=== PATIENT | male | born 1955 | race Caucasian/White ===

== ENCOUNTER → 2017-08-07 | Outpatient (CLI) | payer BC ==
[~2017-08-07] MED LIST: ALBU1AER9 INH; CLXUNK; PRLSR20 PO; SNG10 PO; UP TO DATE
[2017-08-07 12:47] LABS: BLOOD UREA NITROGEN 15 mg/dl (7-18); BUN/CREATININE RATIO 17.8 (10-20); CALCIUM 9.2 mg/dl (8.5-10.1); CARBON DIOXIDE 27 mmol/L (21-32); CHLORIDE 105 mmol/L (98-107); CREATININE 0.82 mg/dl (0.60-1.40); GLUCOSE 91 mg/dl (70-99); POTASSIUM 4.1 mmol/L (3.5-5.1); SODIUM 140 mmol/L (136-145)
[2017-08-07 12:58] LABS: CHOLESTEROL 241 mg/dl (0-200); CHOLESTEROL/HDL RATIO 4.1; HDL CHOLESTEROL 59 mg/dl; LDL CHOLESTEROL CALCULATED 134 mg/dl; PROSTATE SPECIFIC ANTIGEN 0.172 ng/ml (0.000-4.000); TRIGLYCERIDES 241 mg/dl (0-150); VERY LOW DENSITY LIPOPROT CALC 48 mg/dl
== END | disposition home or self-care (01) ==
LOC: C.LABPVFM 08:45
PROVIDERS: ATTEND Nurse Practitioner Family
DX: E78.5 Hyperlipidemia, unspecified (principal); E55.9 Vitamin D deficiency, unspecified; Z12.5 Encounter for screening for malignant neoplasm of prostate; Z13.220 Encounter for screening for lipoid disorders

== ENCOUNTER 2019-10-29 05:58 | Inpatient (IN) ==
[2019-10-29] MEDS ORDERED: ASPIRIN CHEW 324 MG PO STA ×2 (06:11→06:50)
[2019-10-29 06:22] LABS: Basophils # (auto) 0.03 K/uL (0-0.2); Basophils % (auto) 0.4 %; Eosinophils # (auto) 0.17 K/uL (0-0.5); Eosinophils % (auto) 2.5 %; Hemoglobin 15.3 g/dL (14.0-18.0); Immature Granulocytes # (auto) 0.01 K/uL (0.00-0.02); Immature Granulocytes % (auto) 0.1 %; Lymphocytes % (auto) 14.4 %; Mean Corpuscular Hemoglobin 31.7 pg (25-34); Mean Corpuscular Volume 93.2 fL (80-100); Mean Platelet Volume 8.7 fL (7.4-10.4); Monocytes # (auto) 0.55 K/uL (0.11-0.59); Monocytes % (auto) 7.9 %; Neutrophils # (auto) 5.17 K/uL (1.4-6.5); Neutrophils % (auto) 74.7 %; Platelet Count 201 K/uL (130-400); RDW Coefficient of Variation 13.3 % (11.5-14.5); RDW Standard Deviation 45.9 fL (36.4-46.3); Red Blood Count 4.83 M/uL (4.7-6.1); White Blood Count 6.93 K/uL (4.8-10.8)
--- NOTE | 2019-10-29 06:26 | XRay Report ---
XR chest 1V portable HISTORY: 63 years-old Male Chest Pain acute atypical chest pain COMPARISON: Chest radiograph 10/21/2009 TECHNIQUE: Portable AP view of the chest FINDINGS: Cardiomediastinal and hilar silhouettes are within normal limits. No pneumothorax, pleural effusion, focal airspace consolidation or overt pulmonary edema. Unchanged chronic focus overlies the lateral a nterior aspect of the left fourth rib which may reflect a bone island or calcified granuloma. Minimal left basilar atelectasis. Bones of the chest appear grossly intact. IMPRESSION: No acute process. ACT 112: Negative or not required by law. The above report was generated using voice recognition software. It may contain grammatical, syntax o r spelling errors. Electronically signed by: Emil Simpson M.D. 10/29/2019 6:25 AM
[2019-10-29 06:36] LABS: Partial Thromboplastin Ratio 0.9; Partial Thromboplastin Time 25.4 Seconds (21.0-31.0); Prothrombin Time 10.5 Seconds (9.0-12.0)
[2019-10-29 06:38] LABS: Albumin Level 3.6 gm/dl (3.4-5.0); BUN Creatinine Ratio 17.8 (10-20); Calcium 9.2 mg/dl (8.5-10.1); Creatinine Clr Calc Pharmacy 87.9 ml/min; Est GFR (African American) 100.8; Potassium 3.8 mmol/L (3.5-5.1)
[2019-10-29 06:47] LABS: Albumin Globulin Ratio 1.1 (0.9-2); Bilirubin,Total 0.5 mg/dl (0.2-1); Globulin 3.3 gm/dl (2.5-4.0); Total Protein 6.9 gm/dl (6.4-8.2); Troponin I 0.182 ng/ml (0-0.045)
[2019-10-29] MEDS ORDERED: NITROGLYCERIN 2% OINTMENT 30GM TUBE EXT STA (06:50)
[2019-10-29] MEDS ORDERED: OPTIRAY 320 125ml IV PRN (08:43)
--- NOTE | 2019-10-29 09:04 | CT Scan Report ---
CT angio neck with con CLINICAL HISTORY: 63 years-old Male with Stroke-like symptoms. Acute strokelike symptoms COMPARISON STUDY: CTA of the head of same day TECHNIQUE: Following the IV administration of 119 mL of Optiray 320, CT angiogram of the neck was per formed from the aortic arch to the skull base. Images are reviewed in the axial, sagittal, and adam l planes. 3-D MIPS images are created and assessed. IV contrast was administered without complication . All measurements were calculated based on NASCET criteria. A dose lowering technique was utilized adhering to the principles of ALARA. FINDINGS: The imaged opacified pulmonary arterial tree is unremarkable. Mild mixed plaque of the thoracic aorti c arch. The imaged proximal subclavian arteries are unremarkable. The bilateral common carotid arteri es are patent. Mild mixed plaque of the bilateral carotid bulbs results in less than 50% stenosis bruno aterally. Mild calcified plaque of the cavernous and supraclinoid segments without high-grade stenosi s. Dominant left vertebral artery. The bilateral vertebral arteries are patent. There is mild less th an 50% luminal narrowing involving the proximal V4 segment left vertebral artery. The right vertebral artery is patent. Basilar artery is also patent. No aneurysm, dissection, high-grade stenosis or pro ximal branch occlusion. Lung apices are clear without pneumothorax. Prevertebral soft tissues are unremarkable. Unremarkable thyroid. No adenopathy. Internal jugular veins are unremarkable. Mild mucosal thickening of the maxil amy sinuses. Multilevel degenerative changes of the cervical spine. Mastoid air cells and middle ear cavities are clear. IMPRESSION: 1. Unremarkable CTA of the neck without aneurysm, dissection, high-grade stenosis or proximal branch occlusion. 2. Mild mixed plaque of the bilateral carotid bulbs results in less than 50% luminal narrowing bilate rally. 3. Mild luminal narrowing of less than 50% involves the proximal V4 segment left vertebral artery. ACT 112: Negative or not required by law. The above report was generated using voice recognition software. It may contain grammatical, syntax o r spelling errors. Electronically signed by: Emil Simpson M.D. 10/29/2019 9:03 AM
--- NOTE | 2019-10-29 09:08 | CT Scan Report ---
CTA ANGIOGRAPHY OF THE HEAD CLINICAL HISTORY: Stroke-like symptoms COMPARISON STUDY: Sinus CT December 18, 2008. TECHNIQUE: Helical axial images of the head were obtained following uneventful intravenous administr ation of 119 cc of Optiray 320. Automated exposure control was utilized for the study. A dose lower ing technique was utilized adhering to the principles of ALARA. CT DOSE: 570.83 mGy.cm FINDINGS: Sensitivity for detection of acute hemorrhage is diminished on this contrast enhanced exam but none is identified. Ventricular system is unremarkable. Basilar cisterns are patent. There are no extra-axial collections. There are no findings to suggest acute dural sinus thrombosis or acute terr itorial infarct. There are postoperative findings within the sinuses with mild mucosal thickening. Th e bilateral M1, M2, A1 and A2 segments are patent. There is no intracranial aneurysm, stenosis, throm bus or abrupt vessel cut off. There is mild plaque within the bilateral cavernous carotids. Posterior circulation is also intact. Bilateral posterior communicating arteries are noted. IMPRESSION: 1. No acute intracranial findings. 2. No significant abnormality on CTA of the head. ACT 112: Negative or not required by law. Electronically signed by: Eloy Mora M.D. 10/29/2019 9:06 AM
[2019-10-29] MEDS ORDERED: NiCARDipine HCL INJ 2.5 MG/ML 10 ML AMP ONE (09:31)
[2019-10-29] MEDS ORDERED: HEPARIN (PORCINE) 1000 UNIT/ML 10 ML (CATH LAB USE ONLY) ONE (09:31)
[2019-10-29] MEDS ORDERED: MIDAZOLAM HCL 1 MG/ML 2ML VIAL ONE ×2 (09:31→12:17)
[2019-10-29] MEDS ORDERED: fentaNYL citrate 100 MCG/2 ML VIAL ONE (09:31)
[2019-10-29] MEDS ORDERED: NITROGLYCERIN/D5W 100MCG/ML 20ML SYR ONE (09:32)
--- NOTE | 2019-10-29 09:42 | Emergency Department Note ---
Entered by Vasquez Rooney acting as a scribe for Tyson Bean MD History of Present Illness General Chief complaint: Chest Pain Stated complaint: CHEST PAIN,NUMBNESS IN ARM,DISORIENTED Time Seen by Provider: 10/29/19 06:29 Source: patient History of Present Illness Onset (ago): hour(s) (3.5) Location: chest Pain Consistency: + other (waxing and waning) Maximum Pain Intensity: 4 Quality: + other (chest pain) Relieved By: + other (standing up) Exacerbated By: + other (sitting down) Associated symptoms: + other (+left arm numbness/weakness) The patient is a 63 year old male, with past medical history of hyperlipidemia and asthma, who presents to the Emergency Room with complaints of waxing and waning chest pain upon waking up this morning approximately 3.5 hours ago. The patient states that his arm has felt weak/numb since waking up as well. The pat ient states that sitting down makes the chest pain worse and standing up will relieve the chest pain shortly. However, the patient notes that if he stays standing up, the chest pain will worsen once again. He denies the pain worsening with a deep breath. The patient emphasizes that the pain has been waxing and waning. The patient notes he has had no prior cardiac history, but he states he had a stress done completed approximately 15 years ago. The patient also states he has been prescribed cholesterol medicine, but he states he does not take it. The patient reports he smoked for about 30 years, but the patient states he stopped smoking 9 years ago. The patient notes he is on asthma medicine. He denies any recent trips or doing any heavy lifting recently. Home Medications Home Medications Medication Instructions Recorded Confirmed Type atorvastatin 10 mg tablet 10 mg PO DAILY #90 tab 05/20/19 10/29/19 Rx sertraline 50 mg tablet 50 mg PO DAILY #90 tab 09/17/19 10/29/19 Rx fluticasone furoate 200 See Rx Instructions .ROUTE 10/28/19 10/29/19 Rx mcg-vilanterol 25 mcg/dose .COMPLEX #60 disk inhalation powder Allergies Allergy/AdvReac Type Severity Reaction Status Date / Time No Known Allergies Allergy Unknown . Verified 10/29/19 06:29 Past Med/Surg History Medical History Asthma Hyperlipidemia Family History Other No significant family history Social History Preferred Language: Fijian Feels Safe at Home: Yes Smoking Status: Never smoker Review of Systems See HPI for pertinent positives & negatives. and A total of 10 systems reviewed and were otherwise negative Physical Exam Vital Signs Vital Signs - 24 hr 10/29/19 06:00 10/29/19 06:06 10/29/19 06:10 Temperature 36.5 C Temperature Source Oral Pulse Rate 73 76 Pulse Rate [Apical] Pulse Rate from SpO2 Sensor 75 Pulse Rhythm Regular Pulse Rhythm [Apical] Pulse Strength Normal Respiratory Rate 20 17 Respiratory Effort / Characteristics Non-Labored Spontaneous Respiratory Depth Normal Respiratory Pattern Regular Blood Pressure 173/84 H 158/86 H Blood Pressure [Right Arm] Blood Pressure Mean 113 105 Blood Pressure Mean [Right Arm] Blood Pressure Position Sitting Blood Pressure Position [Right Arm] Pulse Oximetry 98 98 Oxygen Delivery Method Room Air Room Air Room Air Sepsis Recent Fever Within 48 Hours No Sepsis Action Taken by Nursing No Action Required 10/29/19 06:11 10/29/19 06:30 10/29/19 07:00 Temperature Temperature Source Pulse Rate 67 62 60 Pulse Rate [Apical] Pulse Rate from SpO2 Sensor 62 60 Pulse Rhythm Pulse Rhythm [Apical] Pulse Strength Respiratory Rate 20 21 21 Respiratory Effort / Characteristics Respiratory Depth Respiratory Pattern Blood Pressure 137/82 139/76 108/75 Blood Pressure [Right Arm] Blood Pressure Mean 93 94 80 Blood Pressure Mean [Right Arm] Blood Pressure Position Blood Pressure Position [Right Arm] Pulse Oximetry 95 95 Oxygen Delivery Method Room Air Sepsis Recent Fever Within 48 Hours Sepsis Action Taken by Nursing 10/29/19 07:30 10/29/19 08:00 10/29/19 08:30 Temperature Temperature Source Pulse Rate 63 62 Pulse Rate [Apical] 62 Pulse Rate from SpO2 Sensor 64 Pulse Rhythm Pulse Rhythm [Apical] Regular Pulse Strength Respiratory Rate 19 21 18 Respiratory Effort / Characteristics Non-Labored Respiratory Depth Normal Respiratory Pattern Blood Pressure 143/86 H 129/71 Blood Pressure [Right Arm] 139/76 Blood Pressure Mean 95 79 Blood Pressure Mean [Right Arm] 97 Blood Pressure Position Blood Pressure Position [Right Arm] Sitting Pulse Oximetry 94 96 Oxygen Delivery Method Room Air Sepsis Recent Fever Within 48 Hours Sepsis Action Taken by Nursing 10/29/19 08:57 10/29/19 09:00 10/29/19 09:30 Temperature Temperature Source Pulse Rate 62 55 L Pulse Rate [Apical] 66 Pulse Rate from SpO2 Sensor 64 54 L Pulse Rhythm Pulse Rhythm [Apical] Regular Pulse Strength Respiratory Rate 25 H 17 20 Respiratory Effort / Characteristics Non-Labored Respiratory Depth Normal Respiratory Pattern Regular Blood Pressure 132/64 144/75 H Blood Pressure [Right Arm] 132/64 Blood Pressure Mean 76 97 Blood Pressure Mean [Right Arm] 86 Blood Pressure Position Blood Pressure Position [Right Arm] Sitting Pulse Oximetry 98 96 96 Oxygen Delivery Method Sepsis Recent Fever Within 48 Hours Sepsis Action Taken by Nursing GENERAL: Awake, alert, well-appearing, in no acute distress HENT: Normocephalic, atraumatic. Oropharynx unremarkable. EYES: Normal conjunctiva. Sclera non-icteric. NECK: Supple. No nuchal rigidity. FROM. No JVD. RESPIRATORY: Clear to auscultation. CARDIAC: Regular rate, normal rhythm. Extremities warm and well perfused. Pulses equal. ABDOMEN: Soft, non-distended. No tenderness to palpation. No rebound or guarding. No masses. RECTAL: Deferred. MUSCULOSKELETAL: Chest examination reveals that chest pain is reproducible upon physical exam. The back is symmetrical on inspection without obvious abnormality. There is no CVA tenderness to palpation. No joint edema. LOWER EXTREMITIES: Calves are equal size bilaterally and non-tender. No edema. No discoloration. NEURO: Normal sensorium. No sensory or motor deficits noted. SKIN: No rash or jaundice noted. Course Course 0632: Past medical records reviewed. The patient was evaluated in room B2. A complete history and physical exam was performed. 0652: I updated the patient on his lab findings. 0716: I reviewed the patient's case with Dr. Scott [facility]. Dr. Quezada will evaluate the patient for further management. Consultations Consultation #1: I reviewed the patient's case with Dr. Scott [facility]. Dr. Quezada will evaluate the patient for further management. Time: 07:16 Administered Medications Ioversol (Optiray 320 125ml) 119 ml IV ONCE PRN PRN Reason: Interaction Checking Stop: 11/02/19 08:42 Last Admin: 10/29/19 08:44 Dose: 119 ml Documented by: [id number] Discontinued Medications Aspirin (Aspirin) 324 mg PO NOW STA Stop: 10/29/19 06:12 Last Admin: 10/29/19 06:16 Dose: 324 mg Documented by: [id number] Aspirin (Aspirin) 324 mg PO NOW STA Stop: 10/29/19 06:51 Last Admin: 10/29/19 06:51 Dose: Not Given Documented by: [id number] Nitroglycerin (Nitro-Bid 2%) 1 inch EXT NOW STA Stop: 10/29/19 06:51 Last Admin: 10/29/19 06:54 Dose: 1 inch Documented by: [id number] Medical Decision Making Differential Diagnosis Differential diagnosis: Etiologies such as cardiac ischemia, aortic dissection, pulmonary embolism, pneumonia, pneumothorax, musculoskeletal, infections, pericarditis, myocarditis, esophageal rupture, gastrointestinal, as well as others were entertained. Medical Records Attestation: I reviewed the patient's medical records. Home Medications Current Medication List: was personally reviewed by me Laboratory Data Attestation: I reviewed the patient's lab results. Result diagrams: 10/29/19 06:15 10/29/19 06:15 Lab Results 10/29/19 10/29/19 10/29/19 Range/Units 06:15 06:15 06:15 WBC 6.93 (4.8-10.8) K/uL RBC 4.83 (4.7-6.1) M/uL Hgb 15.3 (14.0-18.0) g/dL Hct 45.0 (42-52) % MCV 93.2 (80-100) fL MCH 31.7 (25-34) pg MCHC 34.0 (32-36) g/dL RDW Std Deviation 45.9 (36.4-46.3) fL RDW Coeff of Jayson 13.3 (11.5-14.5) % Plt Count 201 (130-400) K/uL MPV 8.7 (7.4-10.4) fL Immature Gran % (Auto) 0.1 % Neut % (Auto) 74.7 % Lymph % (Auto) 14.4 % [place] % (Auto) 7.9 % Eos % (Auto) 2.5 % Baso % (Auto) 0.4 % Immature Gran # (Auto) 0.01 (0.00-0.02) K/uL Neut # (Auto) 5.17 (1.4-6.5) K/uL Lymph # (Auto) 1.00 L (1.2-3.4) K/uL [place] # (Auto) 0.55 (0.11-0.59) K/uL Eos # (Auto) 0.17 (0-0.5) K/uL Baso # (Auto) 0.03 (0-0.2) K/uL PT 10.5 (9.0-12.0) Seconds INR 1.0 (0.9-1.1) APTT 25.4 (21.0-31.0) Seconds PTT Ratio 0.9 Sodium 140 (136-145) mmol/L Potassium 3.8 (3.5-5.1) mmol/L Chloride 107 (98-107) mmol/L Carbon Dioxide 28 (21-32) mmol/L Anion Gap 5.0 (3-11) BUN 16 (7-18) mg/dl Creatinine 0.92 (0.6-1.4) mg/dl Est Cr Clr Drug Dosing 87.9 ml/min Est GFR ( Amer) 100.8 Est GFR (Non-Af Amer) 87.0 BUN/Creatinine Ratio 17.8 (10-20) Glucose 112 H (70-99) mg/dl Calcium 9.2 (8.5-10.1) mg/dl Total Bilirubin 0.5 (0.2-1) mg/dl AST 22 (15-37) U/L ALT 32 (12-78) U/L Alkaline Phosphatase 96 (45-117) U/L Total Creatine Kinase (39-308) U/L CK-MB (CK-2) (0.5-3.6) ng/ml CK/CKMB % Calc (0-3.0) Troponin I 0.182 H* (0-0.045) ng/ml Total Protein 6.9 (6.4-8.2) gm/dl Albumin 3.6 (3.4-5.0) gm/dl Globulin 3.3 (2.5-4.0) gm/dl Albumin/Globulin Ratio 1.1 (0.9-2) 10/29/19 Range/Units 06:15 WBC (4.8-10.8) K/uL RBC (4.7-6.1) M/uL Hgb (14.0-18.0) g/dL Hct (42-52) % MCV (80-100) fL MCH (25-34) pg MCHC (32-36) g/dL RDW Std Deviation (36.4-46.3) fL RDW Coeff of Jayson (11.5-14.5) % Plt Count (130-400) K/uL MPV (7.4-10.4) fL Immature Gran % (Auto) % Neut % (Auto) % Lymph % (Auto) % [place] % (Auto) % Eos % (Auto) % Baso % (Auto) % Immature Gran # (Auto) (0.00-0.02) K/uL Neut # (Auto) (1.4-6.5) K/uL Lymph # (Auto) (1.2-3.4) K/uL [place] # (Auto) (0.11-0.59) K/uL Eos # (Auto) (0-0.5) K/uL Baso # (Auto) (0-0.2) K/uL PT (9.0-12.0) Seconds INR (0.9-1.1) APTT (21.0-31.0) Seconds PTT Ratio Sodium (136-145) mmol/L Potassium (3.5-5.1) mmol/L Chloride (98-107) mmol/L Carbon Dioxide (21-32) mmol/L Anion Gap (3-11) BUN (7-18) mg/dl Creatinine (0.6-1.4) mg/dl Est Cr Clr Drug Dosing ml/min Est GFR ( Amer) Est GFR (Non-Af Amer) BUN/Creatinine Ratio (10-20) Glucose (70-99) mg/dl Calcium (8.5-10.1) mg/dl Total Bilirubin (0.2-1) mg/dl AST (15-37) U/L ALT (12-78) U/L Alkaline Phosphatase (45-117) U/L Total Creatine Kinase 169 (39-308) U/L CK-MB (CK-2) 4.0 H (0.5-3.6) ng/ml CK/CKMB % Calc 2.4 (0-3.0) Troponin I (0-0.045) ng/ml Total Protein (6.4-8.2) gm/dl Albumin (3.4-5.0) gm/dl Globulin (2.5-4.0) gm/dl Albumin/Globulin Ratio (0.9-2) Imaging Data Radiologist's Impression: Radiology results as stated below per my review and the radiologist's interpretation: XR chest 1V portable HISTORY: 63 years-old Male Chest Pain acute atypical chest pain COMPARISON: Chest radiograph 10/21/2009 TECHNIQUE: Portable AP view of the chest FINDINGS: Cardiomediastinal and hilar silhouettes are within normal limits. No pneumoth orax, pleural effusion, focal airspace consolidation or overt pulmonary edema. Unchanged chronic focus overlies the lateral anterior aspect of the left fourth rib which may reflect a bone island or calcified granuloma. Minimal left basilar atelectasis. Bones of the chest appear grossly intact. IMPRESSION: No acute process. ACT 112: Negative or not required by law. The above report was generated using voice recognition software. It may contain grammatical, syntax or spelling errors. Electronically signed by: Emil Simpson M.D. 10/29/2019 6:25 AM ECG Data Attestation: I personally reviewed and interpreted this ECG as follows: Indication: + chest pain Rate (beats per minute): 69 Rhythm: + normal sinus ECG Intervals/blocks: + Normal QT-c (383) ECG [place]: + Normal ECG ST segments: no ST depression and no ST elevation Blood Pressure Blood Pressure Findings: Elevated blood pressure Blood Pressure Disposition: further management by hospitalist MDM Narrative This is a 63-year-old male who presents emergency department complaining of chest pain. Patient does have an elevation in his troponin level. The chest pain was improved by nitro. Based on all this I did discuss the case with the hospitalist service who did agree to admit the patient. Patient and family were in agreement with the treatment plan. Impression & Plan Chest pain, Elevated troponin Discharge Plan Visit Data Chief Complaint: Chest Pain Stated Complaint: CHEST PAIN,NUMBNESS IN ARM,DISORIENTED ED Provider: Tyson Bean Discharge Problem: Chest pain, Elevated troponin Patient Disposition: Being Evaluated by Hospitalist Forms Stand Alone Forms: Call Back Authorization, My [facility] [employer] Prescriptions Prescriptions: No Action atorvastatin 10 mg tablet 10 mg PO DAILY Qty: 90 RF: 1 sertraline 50 mg tablet 50 mg PO DAILY Qty: 90 RF: 1 fluticasone furoate-vilanterol [Breo Ellipta] 200-25 mcg/dose blister with device See Rx Instructions .ROUTE .COMPLEX Qty: 60 RF: 5 Referrals Referrals: Lesley Obregon CRNP [Primary Care Provider] - Discharge Problem: Chest pain Qualifiers: Chest pain type: unspecified Qualified Code(s): R07.9 - Chest pain, unspecified The scribe's documentation has been prepared under my direction and personally reviewed by me in its entirety. I confirm that the note above accurately reflects all work, treatment, procedures, and medical decision making performed by me.
--- NOTE | 2019-10-29 10:34 | Cardiology Consultation ---
Date of Consultation October 29, 2019 Assessment & Plan (1) Acute coronary syndrome: (2) Elevated troponin: (3) Chest pain: (4) Aortic valve disorder: (5) Dyslipidemia: ASSESSMENT/PLAN: 1. Acute coronary syndrome: Presentation concerning for acute coronary syndrome. Currently symptoms much improved. We discussed coronary angiography. Risks and benefits were discussed with him in detail. He was made aware that CT surgery is not available at this facility. A conversation was held with his at the bedside. He was agreeable to undergo coronary angiography. Following this advise, further discussion with Dr. Quezada indicated concern for stroke as he discussed issues with his left upper extremity coordination with Dr. Quezada. Dr. Quezada also discussed with Neurology per his report. Therefore, cardiac catheterization is on hold until MRI of the brain is done as he is stable. This is done in the setting of an unremarkable ECG and normal wall motion on echo. Nitroglycerin paste in place. He has received aspirin. Recommend heparin. High-intensity statin therapy. 2. Elevated troponin/chest pain: Plan as above. Troponin is not yet diagnostic of myocardial infarction but would check serial levels. 3. Aortic valve disorder: Sclerotic aortic valve with focal calcification on the non coronary cusp. If he is found to have embolic stroke on MRI, would consider further evaluation/imaging. No significant stenosis. 4. Dyslipidemia: Recommend high-intensity statin therapy. 5. Disposition: Cardiology will continue to follow. Plan of care discussed with Dr. Qeuzada the primary hospitalist service. I will be away from the hospital tomorrow, please do not hesitate to call the on-call civil celebrant for any questions or concerns. Highly complex medical issues. Thank you for allowing me to participate in the care of your patient. Please call for any other questions or concerns. Sincerely, Mitul Rose M.D. History of Present Illness Reason for Consultation: NSTEMI Requesting Physician: Dr. Quezada Attending Physician: Dr. Quezada History of Present Illness Mr. Pope is a very pleasant 63-year-old gentleman with history significant for dyslipidemia and asthma who presented to the emergency department with chest discomfort. He was awakened at 3:00 a.m. with a substernal and slightly left-sided chest discomfort described as a tightness. He also noted left arm numbness and tingling. When he got up to ambulate to the bathroom, he felt lightheaded but denies syncope. He thought maybe he was hungry so therefore he had 2 cups of coffee and a bowl of cereal, but no improvement in his symptoms. Because his symptoms persisted, he had his drive him to the hospital. He states that the chest pain continues to wax and wane in intensity but has not completely resolved. It is currently 1/10 during our conversation. He also has noted diaphoresis this morning and associated dyspnea with exertion, which is all new for him. While in the ER, he felt palpitations which he describes as a skipped feeling. For the past 2 days he has had headaches, which is not usual for him. He informed the hospitalist service, Dr. Quezada, that he had issues with his left arm coordination and actually dropped something this morning because he felt uncoordinated with his left arm. He also reported a tingling sensation in his left leg. For this reason, he had a CT head which was negative and has MRI of the brain pending. He is noncompliant with Lipitor but did tolerate it well in the past. He chooses not to take it because it is a low-dose. He denies melena, hematochezia, or hematuria. He denies syncope, abdominal pain, nausea, or vomiting. Review of systems: As above. Review of systems otherwise negative/unremarkable. Family history: Brother had CAD diagnosed in his 40s and has had multiple PCI. Mother at [place] at the age of 68. She also had hypertension. Social history: He is a former smoker, quitting in approximately 2009 after 20- 30 pack years. Occasional alcohol. No drugs. He lives at home with his . His present to the bedside. He has a stepdaughter and 1 biological son who lives in [place]. 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 Allergies Allergy/AdvReac Type Severity Reaction Status Date / Time No Known Allergies Allergy Unknown . Verified 10/29/19 06:29 Home Medications Home Medications Medication Instructions Recorded Confirmed Type atorvastatin 10 mg tablet 10 mg PO DAILY #90 tab 05/20/19 10/29/19 Rx sertraline 50 mg tablet 50 mg PO DAILY #90 tab 09/17/19 10/29/19 Rx fluticasone furoate 200 See Rx Instructions .ROUTE 10/28/19 10/29/19 Rx mcg-vilanterol 25 mcg/dose .COMPLEX #60 disk inhalation powder Patient History Medical History Asthma Hyperlipidemia Family History Other No significant family history Social History Preferred Language: Yemeni Feels Safe at Home: Yes Smoking Status: Never smoker Physical Exam Physical Exam: Gen.: No acute distress. Alert and oriented. HEENT: Anicteric sclera. Neck: No JVD. No bruit. Cardiac: PMI was nondisplaced. No ventricular heave. Regular. Normal S1-S2. No murmurs, rubs, or gallops. Pulmonary: Clear to auscultation bilaterally without wheezes, rales, or rhonchi. Abdomen: Soft, nontender, nondistended, with normoactive bowel sounds. No bruits noted. Extremities: 2+ radial pulses bilaterally. 2+ posterior tibialis pulses bilaterally. No edema or cyanosis. No palpable cords. Psychiatric: Affect appears appropriate. Results & Data Vital Signs (Past 12 Hours) Vital Signs Temp Pulse Pulse Resp BP BP Pulse Ox 10/29/19 10:00 57 L 22 142/76 H 97 10/29/19 09:48 55 L 18 130/76 97 10/29/19 09:39 55 L 17 138/93 96 10/29/19 09:30 55 L 20 144/75 H 96 10/29/19 09:00 66 17 132/64 96 10/29/19 08:57 62 25 H 132/64 98 10/29/19 08:30 62 18 129/71 10/29/19 08:00 63 21 143/86 H 96 10/29/19 07:30 62 19 139/76 94 10/29/19 07:00 60 21 108/75 95 10/29/19 06:30 62 21 139/76 95 10/29/19 06:11 67 20 137/82 10/29/19 06:06 76 17 158/86 H 98 10/29/19 06:00 36.5 C 73 20 173/84 H 98 Laboratory Results Laboratory Results - last 24 hr 10/29/19 10/29/19 10/29/19 06:15 06:15 06:15 WBC 6.93 RBC 4.83 Hgb 15.3 Hct 45.0 MCV 93.2 MCH 31.7 MCHC 34.0 RDW Std Deviation 45.9 RDW Coeff of Jayson 13.3 Plt Count 201 MPV 8.7 Immature Gran % (Auto) 0.1 Neut % (Auto) 74.7 Lymph % (Auto) 14.4 [place] % (Auto) 7.9 Eos % (Auto) 2.5 Baso % (Auto) 0.4 Immature Gran # (Auto) 0.01 Neut # (Auto) 5.17 Lymph # (Auto) 1.00 L [place] # (Auto) 0.55 Eos # (Auto) 0.17 Baso # (Auto) 0.03 PT 10.5 INR 1.0 APTT 25.4 PTT Ratio 0.9 Sodium 140 Potassium 3.8 Chloride 107 Carbon Dioxide 28 Anion Gap 5.0 BUN 16 Creatinine 0.92 Est Cr Clr Drug Dosing 87.9 Est GFR ( Amer) 100.8 Est GFR (Non-Af Amer) 87.0 BUN/Creatinine Ratio 17.8 Glucose 112 H Calcium 9.2 Total Bilirubin 0.5 AST 22 ALT 32 Alkaline Phosphatase 96 Total Creatine Kinase CK-MB (CK-2) CK/CKMB % Calc Troponin I 0.182 H* Total Protein 6.9 Albumin 3.6 Globulin 3.3 Albumin/Globulin Ratio 1.1 10/29/19 06:15 WBC RBC Hgb Hct MCV MCH MCHC RDW Std Deviation RDW Coeff of Jayson Plt Count MPV Immature Gran % (Auto) Neut % (Auto) Lymph % (Auto) [place] % (Auto) Eos % (Auto) Baso % (Auto) Immature Gran # (Auto) Neut # (Auto) Lymph # (Auto) [place] # (Auto) Eos # (Auto) Baso # (Auto) PT INR APTT PTT Ratio Sodium Potassium Chloride Carbon Dioxide Anion Gap BUN Creatinine Est Cr Clr Drug Dosing Est GFR ( Amer) Est GFR (Non-Af Amer) BUN/Creatinine Ratio Glucose Calcium Total Bilirubin AST ALT Alkaline Phosphatase Total Creatine Kinase 169 CK-MB (CK-2) 4.0 H CK/CKMB % Calc 2.4 Troponin I Total Protein Albumin Globulin Albumin/Globulin Ratio Diagnostic Findings ECGs personally reviewed: ECG 10/29/2019 at 6:04 a.m.: Sinus rhythm 69 bpm. Normal ECG. ECG 10/29/2019 at 8:08 a.m.: NSR 65 bpm. Limited echo 10/29/2019: Normal LV size, wall motion, systolic function. EF 60-65%. Sclerotic aortic valve and focal calcification noted on the non coronary cusp, which appeared to be nonmobile. Mild MR on limited views. Chest x-ray 10/29/2019 personally reviewed: No infiltrate. No acute finding. Head CTA 10/29/2019: No acute intracranial findings. Neck CTA 10/29/2019: No significant stenosis. No dissection or aneurysm. Medications Administered Current Inpatient Medications Ioversol (Optiray 320 125ml) 119 ml IV ONCE PRN PRN Reason: Interaction Checking Stop: 11/02/19 08:42 Last Admin: 10/29/19 08:44 Dose: 119 ml Documented by: PG Care Time/CCT Total # of Minutes Spent Total Time Spent with Patient: Total time spent is greater than 50% in coordination of care (as documented) at patient's floor/unit and/or counseling patient: (1) Chest pain Chest pain type: unspecified Qualified Code(s): R07.9 - Chest pain, unspecified
--- NOTE | 2019-10-29 11:14 | Magnetic Resonance Report ---
MR brain wo con HISTORY: 63 years-old Male Stroke - Dysarthria; left-sided numbness/clumbsine acute strokelike sympt oms with left-sided numbness COMPARISON: CTA head and neck of same day TECHNIQUE: Multiplanar multisequence MRI of the brain was obtained without the use of IV contrast. FINDINGS: Sand Conditioner Machine localizer images demonstrate no gross extracranial abnormality. There is no restricted diffusio n to suggest acute or subacute infarction. No acute intracranial hemorrhage, midline shift, abnormal extra axial collection, hydrocephalus or intracranial mass identified. The major flow voids at the le umer of the skull base appear patent. Trace mastoid effusions. Mild mucosal thickening of the paranasa l sinuses, probably within the left maxillary sinus. The orbits, skull and soft tissues are within no rmal limits. Midline structures including the corpus callosum, brainstem, optic chiasm, pituitary and pineal glands appear unremarkable the sagittal T1 series. No cerebellar tonsillar herniation. Degene rative changes are noted about the imaged cervical spine. Mild age-related involutional changes. Mini mal patchy T2/FLAIR hyperintensities are nonspecific however statistically favor chronic microvascula r ischemic disease. IMPRESSION: No acute intracranial abnormality, specifically there is no evidence of acute or subacute infarction. ACT 112: Negative or not required by law. The above report was generated using voice recognition software. It may contain grammatical, syntax o r spelling errors. Electronically signed by: Emil Simpson M.D. 10/29/2019 11:12 AM
--- NOTE | 2019-10-29 11:49 | Pre Anesthesia Assessment ---
Date of Service October 29, 2019 Pre Sedation Assessment Vital Signs Temp Pulse Pulse Resp BP BP Pulse Ox 10/29/19 11:37 59 L 14 124/71 97 10/29/19 11:13 62 15 124/71 95 10/29/19 10:00 57 L 22 142/76 H 97 10/29/19 09:48 55 L 18 130/76 97 10/29/19 09:39 55 L 17 138/93 96 10/29/19 09:30 55 L 20 144/75 H 96 10/29/19 09:00 66 17 132/64 96 10/29/19 08:57 62 25 H 132/64 98 10/29/19 08:30 62 18 129/71 10/29/19 08:00 63 21 143/86 H 96 10/29/19 07:30 62 19 139/76 94 10/29/19 07:00 60 21 108/75 95 10/29/19 06:30 62 21 139/76 95 10/29/19 06:11 67 20 137/82 10/29/19 06:06 76 17 158/86 H 98 10/29/19 06:00 36.5 C 73 20 173/84 H 98 Cardiovascular RRR, no murmur, no edema Respiratory normal respiratory effort, lungs clear to auscultation Pre-Sedation Airway Assessment Smoking Status: Never smoker Mallampati Class: III ASA: ASA3 NPO Status Date of Last Intake of Fluids: 10/29/19 Time of Last Intake of Fluids: 03:00 Date of Last Intake of Solid Food: 10/29/19 Time of Last Intake of Solid Foods: 03:00 Procedure Planning Contraindications for Sedation: none Current Medications Reviewed: Yes Notes The planned sedation has been discussed with the patient. Informed Consent was obtained. I have identified the patient, determined the appropriateness of sedation and have assessed the patient immediately prior to the procedure. All medicine(s) and interventions are by my order.
--- NOTE | 2019-10-29 12:55 | Cardiac Catheterization ---
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 Cardiac Status Clinical evaluation leading to the procedure CAD Presenation: Unstable angina Anginal Classification: CCS IV Heart Failure: No Cardiogenic Shock within 24 Hours: No Cardiac Arrest within 24 Hours: No Imaging Studies Past 6 Months: Yes Stress Studies Past 6 Months: No Standard Exercise Test: No Stress Echocardiogram: No Stress Testing w/SPECT MPI: No Cardiac CTA: No Coronary Anatomy Dominant: Left Left Ventricular Angiography EF (%): n/a Diagnostic Physicians Name: Morgan Rose MD Status: Elective Closure Device Percutaneous Entry Location: Radial Closure Device: Radial Band Recommendations: Medical Therapy and/or Counseling Cardiac Cath Procedure Full Procedure Date October 29, 2019 Pre-Procedure Diagnosis Pre-Procedure Diagnosis: Acute Coronary Syndrome AUC Score AUC Score: 7 Post-Procedure Diagnosis Post-Procedure Diagnosis: Moderate CAD and Elevated Intracardiac Pressures Procedure(s) Performed Procedure(s) Performed: Coronary Angiography and Left Heart Cath Floating Labor Gang Supervisor Morgan Rose MD Circular Ripsaw Operator(s) Marleen Zhou Estimated Blood Loss Estimated Blood Loss: < 25 ml Medication(s) Medication(s): Fentanyl, Heparin, Lidocaine 1%, Nicardipine and Versed Summary of Findings Procedures: 1. Coronary geography 2. Left heart catheterization 3. Moderate sedation Coronary angiography: 1. Left main coronary: The LMCA is a large-caliber vessel without significant CAD. 2. Left anterior descending: LAD is a large-caliber vessel that wraps around the apex. Proximal LAD 30%. Mid LAD 10%. Large D1 without significant CAD. 3. Circumflex: The circumflex is large and dominant. Circumflex gives rise to a small caliber OM1 with mid 50 to 70% stenosis. Large PL branch without significant CAD. Large PDA with mid 50% stenosis. NANCIE-3 flow throughout the circumflex system. 4. Right coronary artery: The RCA is small and nondominant. Proximal RCA 20% stenosis. 5. Ramus intermedius: Medium caliber ramus with proximal 20% stenosis. Left heart catheterization: 1. Left ventriculography was not performed. 2. No significant aortic stenosis. Peak to peak gradient across the aortic valve was 0. 3. Normal LVEDP; 10 mmHg. Moderate sedation: 1. Sedation start time: 1215 2. Sedation end time: 1236 Impression: 1. Moderate to severe CAD involving small caliber OM1, too small for intervention. 2. Otherwise, mild or moderate nonobstructive CAD. 3. No aortic stenosis. 4. Normal LVEDP. 5. Dominant circumflex. Plan: 1. Optimize medical therapy 2. Trend troponin. Hemodynamics Rest Ao:: 125/62 Final Ao: 123/64 LV: 116/2/10 Recommendations Recommendations: Medical Therapy and/or Counseling Specimens Specimens: None Radiation Exposure (mGy) 863 mGy. Fluoro time 3 min. Contrast (mls) 50 ml Procedural Complication(s) None Disposition PCU I attest to the content of the Intraoperative Record and any orders documented therein. Any exceptions are noted below. [facility] Card Cath Procedure Codes Cardiac Catheterization Procedure 1: Cardiovascular Cath Procedures: 17564 Coronaries and LHC (+/-LV) Moderate Sedation Procedure 1: Sedation/Anesthesia: 06829 Mod Sedation by the same physician;Init15 Min Child Age 5 & Up Procedure 2: Sedation/Anesthesia: 25054 Mod Sedation by the same physician; Ea [id number] Minutes PG Care Time/CCT Total # of Minutes Spent Total Time Spent with Patient: Total time spent is greater than 50% in coordination of care (as documented) at patient's floor/unit and/or counseling patient:
[2019-10-29] MEDS ORDERED: SODIUM CHLORIDE 0.9% 1000ML 1,000 ML IV SCH (13:00)
[2019-10-29] MEDS ORDERED: ONDANSETRON INJ 2 MG/ML 2 ML VIAL IV PRN (13:17)
[2019-10-29] MEDS ORDERED: NITROGLYCERIN/D5W 100MCG/ML 250 ML IV SCH (13:30)
[2019-10-29] MEDS ORDERED: HEPARIN IV BOLUS 6,000 UNITS in SYRINGE 0 ML IV STA (13:33)
[2019-10-29] MEDS ORDERED: HEPARIN SODIUM/DEXTROSE 25,000 UNITS/500 ML BAG IV SCH (13:45)
[2019-10-29] MEDS: METOPROLOL TARTRATE 25 MG TAB PO SCH ×2 (13:59→21:00)
--- NOTE | 2019-10-29 15:07 | History & Physical Report ---
Date of Service October 29, 2019 Assessment & Plan (1) Acute coronary syndrome: Convincing ACS with normal EKG, but elevated troponin. - Cath on 10/29 showed occlusive disease of a small OM1 -> Medical management - Continue ASA, start high-dose statin, beta-aureliano - Continue heparin gtt x 48 hours - Trend troponins until peak - Switch nitroglycerin gtt (which was never started) to Imdur (2) Stroke-like symptom: Patient's reported an episode of dysarthria the evening before presentation which spontaneously resolved. In the ED, he reported left-sided weakness, numbness/tingling, and clumsiness. Concern for CVA; however, he was well outside of the tPA window as he woke up at 3am with these symptoms. - CTA head/neck on 10/29 showed no proximal occlusions, aneurysm, dissection, or high-grade stenosis. It did show mild narrowing of the V4 segment of the left vertebral artery. - MRI brain on 10/29 showed no CVA. - Unclear cause of symptoms apart from atypical ACS symptoms. - Will monitor with neurochecks (3) Dyslipidemia: Was not taking his statin at home because it was "low dose" and "probably not doing much for [him] anyhow." - Now on high-dose statin (4) Asthma: Does not take his Breo Ellipta on a consistent basis. Did report some shortness of breath in the ED, but no wheezing. - DuoNebs PRN - Breo inhaler if he brings it in. (5) DVT prophylaxis: Heparin gtt for ACS History of Present Illness Primary Care Provider: SADE Jiménez 63yo M w/ hx of HLD and asthma who presents with chest pressure that is concerning for ACS. He reports he was awoken with substernal chest pressure that radiated to the left shoulder and down his left arm at approx. 3am. His reports that he had an episode of slurred speech the evening prior which has resolved. The patient reports he got up and tried to walk to his kitchen. He reports some extra clumsiness with his left foot, like he was having trouble walking. 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 He also noted some tingling in his left arm and leg. He also reports some shortness of breath and dizziness with the chest pressure. He reports his pain is still coming and going in small, 30-second waves that come, then let up, then come back again. At present he denies any dysarthria or dysphagia; however, he still reports some mild weakness in his left arm and leg as well as the continued clumsiness of those limbs. Allergies Allergy/AdvReac Type Severity Reaction Status Date / Time No Known Allergies Allergy Unknown . Verified 10/29/19 06:29 Home Medications Home Medications Medication Instructions Recorded Confirmed Type atorvastatin 10 mg tablet 10 mg PO DAILY #90 tab 05/20/19 10/29/19 Rx sertraline 50 mg tablet 50 mg PO DAILY #90 tab 09/17/19 10/29/19 Rx fluticasone furoate 200 See Rx Instructions .ROUTE 10/28/19 10/29/19 Rx mcg-vilanterol 25 mcg/dose .COMPLEX #60 disk inhalation powder Past Med/Surg History Medical History Asthma Dyslipidemia Family History Mother Myocardial infarction, Onset Age: 67 Social History Preferred Language: Uzbek Feels Safe at Home: Yes Smoking Status: Never smoker Hx Substance Use: No Review of Systems Review of Systems: All systems reviewed & are unremarkable except as noted in HPI & below Physical Exam Constitutional: WD/WN, vitals as above Eyes: EOM intact bilaterally; no conjunctival abnormality ENMT: external ear and nose normal, oropharynx normal Neck: trachea midline, no thyromegaly normal visual inspection Respiratory: normal respiratory effort, lungs clear to auscultation no respiratory distress Cardiovascular: RRR, no murmur, no edema Gastrointestinal (Abdomen): Inspection/Auscultation: abdomen normal to inspection; abdomen not distended Musculoskeletal: no cyanosis or clubbing, extremities motor strength 5/5 Skin: no rashes, warm and dry Neurologic: moves all extremities (Mild impairment of finger-nose testing in left arm and leg) and awake Speech / Cognition: no expressive aphasia Motor/Sensory: no tremor, normal movement, no fasciculations, no pronator drift and no asterixis Coordination: + abnormal [id number] test (Left) and + abnormal tour-im-waau test (Left) Psychiatric: Orientation: alert, oriented to person and cooperative Results & Data Vital Signs (Past 12 Hours) Vital Signs Temp Pulse Pulse Resp BP BP BP 10/29/19 14:34 36.6 C 58 L 18 145/79 H 10/29/19 14:12 36.8 C 59 L 18 123/73 10/29/19 13:42 36.7 C 56 L 20 133/79 10/29/19 13:15 60 18 124/68 10/29/19 12:54 61 18 119/70 10/29/19 11:37 59 L 14 124/71 10/29/19 11:13 62 15 124/71 10/29/19 10:00 57 L 22 142/76 H 10/29/19 09:48 55 L 18 130/76 10/29/19 09:39 55 L 17 138/93 10/29/19 09:30 55 L 20 144/75 H 10/29/19 09:00 66 17 132/64 10/29/19 08:57 62 25 H 132/64 10/29/19 08:30 62 18 129/71 10/29/19 08:00 63 21 143/86 H 10/29/19 07:30 62 19 139/76 10/29/19 07:00 60 21 108/75 10/29/19 06:30 62 21 139/76 10/29/19 06:11 67 20 137/82 10/29/19 06:06 76 17 158/86 H 10/29/19 06:00 36.5 C 73 20 173/84 H Pulse Ox 10/29/19 14:34 98 10/29/19 14:12 98 10/29/19 13:42 97 10/29/19 13:15 10/29/19 12:54 10/29/19 11:37 97 10/29/19 11:13 95 10/29/19 10:00 97 10/29/19 09:48 97 10/29/19 09:39 96 10/29/19 09:30 96 10/29/19 09:00 96 10/29/19 08:57 98 10/29/19 08:30 10/29/19 08:00 96 10/29/19 07:30 94 10/29/19 07:00 95 10/29/19 06:30 95 10/29/19 06:11 10/29/19 06:06 98 10/29/19 06:00 98 Code Status & VTE Plan VTE Prophylaxis Plan VTE Prophylaxis will be ordered: Yes PG Care Time/CCT Total # of Minutes Spent Total Time Spent with Patient: Total time spent is greater than 50% in coordination of care (as documented) at patient's floor/unit and/or counseling patient:
[2019-10-29] MEDS ORDERED: ALBUT/IPRATROP 3MG/0.5MG NEB 3 ML VIAL NEB PRN (15:33)
[2019-10-29] MEDS ORDERED: NITROGLYCERIN 2% OINTMENT 30GM TUBE ONE (15:59)
[2019-10-29] MEDS ORDERED: CLOPIDOGREL BISULFATE 300 MG TAB PO STA (16:31)
[2019-10-29] MEDS: NITROGLYCERIN 2% OINTMENT 30GM TUBE EXT SCH ×2 (16:51→22:04)
[2019-10-29] MEDS: ISOSORBIDE MONO EXTENDED REL 30 MG TABCR PO SCH (16:56)
[2019-10-29] MEDS ORDERED: MoRPHine SULFATE 2 MG/ML CARP IV PRN (17:32)
[2019-10-29 20:41] LABS: Partial Thromboplastin Ratio > 5.1
[2019-10-29 20:43] LABS: Partial Thromboplastin Time > 139.0 Seconds (21.0-31.0)
[2019-10-29] MEDS: ACETAMINOPHEN 325 MG TAB PO PRN (20:49)
[2019-10-29] MEDS: ATORVASTATIN 40 MG TAB PO SCH (20:49)
[2019-10-29 21:45] LABS: Partial Thromboplastin Ratio 3.2
[2019-10-29 21:47] LABS: Partial Thromboplastin Time 87.1 Seconds (21.0-31.0)
[2019-10-29] MEDS ORDERED: COLCHICINE 0.6 MG TAB PO ONE (22:39)
--- NOTE | 2019-10-29 22:47 | Progress Note ---
Date of Service October 29, 2019 Received a page from the patient's nurse that his routine serial troponin came back at 17.6. On brief chart review, patient was admitted earlier today for ACS. Underwent a cardiac cath without further intervention. Placed on medical management including heparin. Spoke with patient at bedside. He says he continues to have some chest discomfort that is unchanged relatively since his admission. Denies any difficulty breathing or other acute symptoms. He does say this discomfort feels better on sitting up, worse when supine, but not necessarily better on leaning forward. He does not recall any recent illnesses, fevers, or cough. Vitals reviewed. Patient has a regular bradycardia and clear lungs on exam. EKG shows sinus bradycardia rate 56, rather unchanged from previous EKG. Plan: - Discussed case with Dr. Drew with updates on the above. He mentioned this may be myopericarditis. He recommended stopping heparin and given a single dose of colchicine now. Also recommended starting colchicine twice daily tomorrow. Those orders were written. Lili Hamlin, PGY3 Overnight call Results & Data Vital Signs (Past 12 Hours) Vital Signs Temp Pulse Pulse Resp BP BP Pulse Ox 10/29/19 19:53 37.0 C 65 18 137/68 96 10/29/19 18:42 37.2 C 59 L 59 L 18 127/71 94 10/29/19 18:00 36.9 C 60 20 128/76 94 10/29/19 17:42 36.7 C 67 18 145/74 H 94 10/29/19 17:20 66 20 145/74 H 93 10/29/19 17:00 66 20 134/63 94 10/29/19 16:50 36.8 C 62 20 130/68 93 10/29/19 16:33 36.7 C 61 18 142/72 H 95 10/29/19 16:12 36.8 C 62 20 128/74 94 10/29/19 16:00 36.9 C 60 18 134/77 95 10/29/19 15:45 36.9 C 56 L 19 142/75 H 95 10/29/19 14:34 36.6 C 58 L 18 145/79 H 98 10/29/19 14:12 36.8 C 59 L 18 123/73 98 10/29/19 13:42 36.7 C 56 L 20 133/79 97 10/29/19 13:15 60 18 124/68 10/29/19 12:54 61 18 119/70 10/29/19 11:37 59 L 14 124/71 97 10/29/19 11:13 62 15 124/71 95
[2019-10-30] MEDS: NITROGLYCERIN 2% OINTMENT 30GM TUBE EXT SCH ×4 (03:47→20:52)
[2019-10-30 05:55] LABS: Hematocrit (blood only) 42.1 % (42-52); Hemoglobin 13.9 g/dL (14.0-18.0); Mean Corpuscular Hemoglobin 31.2 pg (25-34); Mean Corpuscular Volume 94.6 fL (80-100); Mean Platelet Volume 8.6 fL (7.4-10.4); Platelet Count 205 K/uL (130-400); RDW Coefficient of Variation 13.4 % (11.5-14.5); RDW Standard Deviation 46.7 fL (36.4-46.3); Red Blood Count 4.45 M/uL (4.7-6.1); White Blood Count 8.59 K/uL (4.8-10.8)
[2019-10-30 06:20] LABS: BUN Creatinine Ratio 15.3 (10-20); Calcium 8.6 mg/dl (8.5-10.1); Creatinine Clr Calc Pharmacy 91.9 ml/min; Est GFR (African American) 104.5; Est GFR (Non-African American) 90.1; Potassium 4.1 mmol/L (3.5-5.1)
[2019-10-30 06:37] LABS: Thyroid Stimulating Hormone 1.13 uIu/ml (0.300-4.500); Troponin I 14.6 ng/ml (0-0.045)
[2019-10-30 07:12] LABS: Estimated Average Glucose 114 mg/dl; Hemoglobin A1C 5.6 % (4.5-5.6)
[2019-10-30] MEDS: ASPIRIN 81 MG CHEW PO SCH (08:04)
[2019-10-30] MEDS: COLCHICINE 0.6 MG TAB PO SCH ×2 (08:05→19:49)
[2019-10-30] MEDS: ISOSORBIDE MONO EXTENDED REL 30 MG TABCR PO SCH (08:05)
[2019-10-30] MEDS: CLOPIDOGREL BISULFATE 75 MG TAB PO SCH (08:05)
[2019-10-30] MEDS: METOPROLOL TARTRATE 25 MG TAB PO SCH ×2 (08:05→19:49)
[2019-10-30] MEDS: ACETAMINOPHEN 325 MG TAB PO PRN ×2 (08:09→19:52)
--- NOTE | 2019-10-30 10:34 | Cardiology Progress Note ---
Date of Service October 30, 2019 Subjective He feels much better this morning. He denies any further chest discomfort or chest pressure with the addition of colchicine last night. His symptoms last evening more worse lying flat and better sitting up. 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 Although he has been unaware of an illness he does have a cough at night. He did have some wooziness when he got up out of bed he also describes a headache. Has any presyncope syncope. [place] any palpitations or fluttering. He looks and feels better this morning. Results & Data Vital Signs (Past 12 Hours) Vital Signs Temp Pulse Pulse Resp BP BP Pulse Ox 10/30/19 07:06 63 10/30/19 07:05 37.0 C 57 L 18 120/70 94 10/30/19 03:59 36.7 C 60 18 116/62 97 10/30/19 00:01 63 10/29/19 23:04 36.8 C 59 L 18 117/65 95 he is awake alert and oriented x3 and is in no acute distress next. HEENT: 2+ carotid upstrokes no evidence of carotid bruits sclera was anicteric hearing is normal Lungs: Clear to auscultation bilaterally no rales rhonchi or wheezing Heart: Regular rate and rhythm no appreciable murmurs rubs or gallops Abdomen: Soft nontender distended positive bowel sounds Extremities no clubbing cyanosis or edema; brisk right radial pulse and his right hand is warm to touch post catheterization Impressions: #1 --Elevated troponin likely on the basis of myopericarditis 2. Normal biventricular size and function 3. Hyperlipidemia 4. Hypertension 5. Coronary angiography: 1. Left main coronary: The LMCA is a large-caliber vessel without significant CAD. 2. Left anterior descending: LAD is a large-caliber vessel that wraps around the apex. Proximal LAD 30%. Mid LAD 10%. Large D1 without significant CAD. 3. Circumflex: The circumflex is large and dominant. Circumflex gives rise to a small caliber OM1 with mid 50 to 70% stenosis. Large PL branch without significant CAD. Large PDA with mid 50% stenosis. NANCIE-3 flow throughout the circumflex system. 4. Right coronary artery: The RCA is small and nondominant. Proximal RCA 20% stenosis. 5. Ramus intermedius: Medium caliber ramus with proximal 20% stenosis. His troponin has peaked and is now trending down. It is reassuring that his LV function is normal on his echocardiogram. In reviewing his catheterization with Dr. Rose at this point it does not appear that he had plaque rupture as a cause for his troponin elevation. Given the fact that his chest discomfort that was worse lying flat and better sitting up is most consistent with myopericarditis. In addition he is already had near resolution of his symptoms with the addition of colchicine. We discontinued his heparin last night. He will remain on colchicine 0.6 mg twice daily in addition to aspirin. We can determine long-term whether he needs Plavix or not tomorrow. I would stop his Imdur as it is causing a headache. He is to remain on the rest of his complete medical regiment and should stay overnight with plan discharge hopefully tomorrow if he feels well. I would urge him to get up out of bed and walk around.
[2019-10-30] MEDS: ATORVASTATIN 40 MG TAB PO SCH (19:48)
--- NOTE | 2019-10-30 23:13 | Hospitalist Progress Note ---
Date of Service October 30, 2019 Assessment & Plan (1) Acute coronary syndrome: Patient does not have ACS. Hold heparin, stop nitro. (2) Stroke-like symptom: Patient's reported an episode of dysarthria the evening before presentation which spontaneously resolved. In the ED, he reported left-sided weakness, numbness/tingling, and clumsiness. Concern for CVA; however, he was well outside of the tPA window as he woke up at 3am with these symptoms. - CTA head/neck on 10/29 showed no proximal occlusions, aneurysm, dissection, or high-grade stenosis. It did show mild narrowing of the V4 segment of the left vertebral artery. - MRI brain on 10/29 showed no CVA. - Unclear cause of symptoms apart from atypical ACS symptoms. - Will monitor with neurochecks - no signs on 10/30 will monitor. (3) Dyslipidemia: Was not taking his statin at home because it was "low dose" and "probably not doing much for [him] anyhow." - Now on high-dose statin (4) Asthma: Does not take his Breo Ellipta on a consistent basis. Did report some shortness of breath in the ED, but no wheezing. - DuoNebs PRN - Breo inhaler if he brings it in. (5) DVT prophylaxis: heparin drip stopped (6) Myocarditis: Given his pleurtic pain, worse with lying down and elebvated trop. will continue colchicine. will monitor patient for another 24 hours. Subjective Patient reports feeling better in regards to chest pain. Patient has a headache. Chest pain worse with lying down better with sitting up. Review of Systems Review of Systems: All systems reviewed & are unremarkable except as noted in HPI & below Physical Exam Physical Exam: Constitutional: WD/WN, vitals as above Eyes: EOM intact bilaterally; no conjunctival abnormality ENMT: external ear and nose normal, oropharynx normal Neck: trachea midline, no thyromegaly normal visual inspection Respiratory: normal respiratory effort, lungs clear to auscultation no respiratory distress Cardiovascular: RRR, no murmur, no edema Gastrointestinal (Abdomen): Inspection/Auscultation: abdomen normal to inspection; abdomen not distended Musculoskeletal: no cyanosis or clubbing, extremities motor strength 5/5 Skin: no rashes, warm and dry Neurologic: moves all extremities Psychiatric: Orientation: alert, oriented to person and cooperative Results & Data Vital Signs (Past 12 Hours) Vital Signs Temp Pulse Pulse Resp BP Pulse Ox 10/30/19 19:19 36.8 C 80 18 114/62 96 10/30/19 15:16 36.6 C 67 74 16 117/63 93 PG Care Time/CCT Total # of Minutes Spent Total Time Spent with Patient: Total time spent is greater than 50% in coordination of care (as documented) at patient's floor/unit and/or counseling patient:
[2019-10-31] MEDS: NITROGLYCERIN 2% OINTMENT 30GM TUBE EXT SCH ×2 (03:15→10:14)
[2019-10-31] MEDS ORDERED: HEPARIN SOD 5,000 UNIT/0.5 ML VIAL SQ SCH (09:00)
[2019-10-31] MEDS: ASPIRIN 81 MG CHEW PO SCH (09:08)
[2019-10-31] MEDS: METOPROLOL TARTRATE 25 MG TAB PO SCH (09:08)
[2019-10-31] MEDS: CLOPIDOGREL BISULFATE 75 MG TAB PO SCH (09:08)
[2019-10-31] MEDS: COLCHICINE 0.6 MG TAB PO SCH (09:08)
[2019-10-31] MEDS: ACETAMINOPHEN 325 MG TAB PO PRN (09:15)
--- NOTE | 2019-10-31 09:20 | Cardiology Progress Note ---
Date of Service October 31, 2019 Assessment & Plan (1) Myopericarditis: (2) CAD (coronary artery disease): (3) Aortic valve disorder: (4) Dyslipidemia: ASSESSMENT/PLAN: 1. Acute myopericarditis: Initially, presentation appeared to be more of acute coronary syndrome but symptoms then appeared to be more consistent with worsening chest pain while supine with improvement sitting upward and coronary angiography did not demonstrate a stenosis likely to be the cause of rest pain. Symptoms resolved with colchicine. Recommend aspirin 325 mg p.o. twice daily for 1 week and then 81 once daily given his CAD. Recommend colchicine 0.6 mg twice daily x3 months. 2. CAD: Most significant lesion appeared to be a very small caliber OM1 with moderate to severe CAD. He did have nonobstructive CAD within the LAD, PDA, ramus, and non dominant RCA. Recommend aspirin 81 mg daily after 1 week as noted above. Recommend high-intensity statin therapy. Continue beta-aureliano. Currently asymptomatic. 3. Aortic valve disorder: Sclerotic aortic valve with focal calcification on the non coronary cusp. Asymptomatic in this regard. 4. Dyslipidemia: Recommend high-intensity statin therapy given CAD in place of home dose, which he was not taking. 5. Disposition: Recommend follow-up in 1-2 weeks in the cardiology office. Plan of care discussed with Dr. Quezada the primary hospitalist service. It was recommended that he ambulated in the hallway prior to discharge. If no other events, can be discharged home from a cardiac perspective today. Subjective He denies chest pain, shortness of breath, syncope, near-syncope, palpitations, edema, or bleeding. Symptoms appeared to resolve with colchicine. When discussing today, after the cardiac catheterization while hospitalized, he noted that chest pain was worse while laying down and improved while sitting upright. He has ambulated in the hallway without chest pain. Review of systems: As above. Physical Exam Physical Exam: Gen.: No acute distress. Alert and oriented. HEENT: Anicteric sclera. Neck: No JVD. Cardiac: Regular. Normal S1-S2. No murmurs, rubs, or gallops. Pulmonary: Clear to auscultation bilaterally without wheezes, rales, or rhonchi. Abdomen: Soft, nontender, nondistended, with normoactive bowel sounds. No bruits noted. Extremities: Right radial cath site is clean, dry, and intact without erythema or discharge. 2+ right radial pulse. No edema or cyanosis. Psychiatric: Affect appears appropriate. Results & Data Vital Signs (Past 12 Hours) Vital Signs Temp Pulse Pulse Pulse Resp BP Pulse Ox 10/31/19 07:47 36.6 C 93 H 18 117/64 94 10/31/19 03:24 37.5 C 65 19 106/54 L 95 10/31/19 00:20 62 10/30/19 23:19 36.9 C 64 18 98/53 L 94 Laboratory Results Laboratory Results - last 48 hr 10/29/19 10/29/19 10/29/19 13:33 19:59 19:59 WBC RBC Hgb Hct MCV MCH MCHC RDW Std Deviation RDW Coeff of Jayson Plt Count MPV APTT > 139.0 H* PTT Ratio > 5.1 Sodium Potassium Chloride Carbon Dioxide Anion Gap BUN Creatinine Est Cr Clr Drug Dosing Est GFR ( Amer) Est GFR (Non-Af Amer) BUN/Creatinine Ratio Glucose Estimat Average Glucose Hemoglobin A1c Calcium Phosphorus Magnesium Troponin I 9.470 H* 17.600 H* Triglycerides Cholesterol LDL Cholesterol, Calc VLDL Cholesterol, Calc HDL Cholesterol Cholesterol/HDL Ratio TSH 10/29/19 10/30/19 10/30/19 21:17 05:39 05:39 WBC 8.59 RBC 4.45 L Hgb 13.9 L Hct 42.1 MCV 94.6 MCH 31.2 MCHC 33.0 RDW Std Deviation 46.7 H RDW Coeff of Jayson 13.4 Plt Count 205 MPV 8.6 APTT 87.1 H* PTT Ratio 3.2 Sodium 140 Potassium 4.1 Chloride 110 H Carbon Dioxide 29 Anion Gap 1.0 L BUN 13 Creatinine 0.88 Est Cr Clr Drug Dosing 91.9 Est GFR ( Amer) 104.5 Est GFR (Non-Af Amer) 90.1 BUN/Creatinine Ratio 15.3 Glucose 97 Estimat Average Glucose Hemoglobin A1c Calcium 8.6 Phosphorus 3.0 Magnesium 2.0 Troponin I 14.600 H* Triglycerides 174 H Cholesterol 157 LDL Cholesterol, Calc 71 VLDL Cholesterol, Calc 35 HDL Cholesterol 51 Cholesterol/HDL Ratio 3 TSH 1.130 10/30/19 05:39 WBC RBC Hgb Hct MCV MCH MCHC RDW Std Deviation RDW Coeff of Jayson Plt Count MPV APTT PTT Ratio Sodium Potassium Chloride Carbon Dioxide Anion Gap BUN Creatinine Est Cr Clr Drug Dosing Est GFR ( Amer) Est GFR (Non-Af Amer) BUN/Creatinine Ratio Glucose Estimat Average Glucose 114 Hemoglobin A1c 5.6 Calcium Phosphorus Magnesium Troponin I Triglycerides Cholesterol LDL Cholesterol, Calc VLDL Cholesterol, Calc HDL Cholesterol Cholesterol/HDL Ratio TSH Diagnostic Findings Telemetry personally reviewed: Sinus rhythm. ECG personally reviewed: ECG 10/30/2019: Sinus rhythm [address] elevation, consider repolarization, pericarditis, verses injury. Medications Administered Current Inpatient Medications Acetaminophen (Tylenol) 650 mg PO Q4H PRN PRN Reason: pain/fever Stop: 11/28/19 13:16 Last Admin: 10/31/19 09:15 Dose: 650 mg Documented by: Albuterol (Duoneb) 3 ml NEB QIDR PRN PRN Reason: Shortness Of Breath Or Wheezing Stop: 11/28/19 18:59 Aspirin (Aspirin Chew) 81 mg PO DAILY [facility] Stop: 11/29/19 08:59 Last Admin: 10/31/19 09:08 Dose: 81 mg Documented by: Atorvastatin Calcium (Lipitor) 80 mg PO HS [facility] Stop: 11/28/19 20:59 Last Admin: 10/30/19 19:48 Dose: 80 mg Documented by: Clopidogrel Bisulfate (Plavix) 75 mg PO QAM [facility] Stop: 11/29/19 08:59 Last Admin: 10/31/19 09:08 Dose: 75 mg Documented by: Colchicine (Colcrys) 0.6 mg PO BID [facility] Stop: 11/29/19 08:59 Last Admin: 10/31/19 09:08 Dose: 0.6 mg Documented by: Heparin Sodium (Porcine) (Heparin Sodium (Porcine)) 5,000 units SQ Q12 [facility] Stop: 11/30/19 08:59 Last Admin: 10/31/19 09:07 Dose: 5,000 units Documented by: Metoprolol Tartrate (Lopressor) 12.5 mg PO BID [facility] Stop: 11/28/19 13:29 Last Admin: 10/31/19 09:08 Dose: 12.5 mg Documented by: Morphine Sulfate (Morphine Sulfate) 2 mg IV Q4H PRN PRN Reason: Pain Stop: 11/12/19 17:31 Last Admin: 10/29/19 17:50 Dose: 2 mg Documented by: Nitroglycerin (Nitro-Bid 2%) 0.5 inch EXT Q6H LEVI Stop: 11/28/19 15:59 Last Admin: 10/31/19 03:15 Dose: Not Given Documented by: Ondansetron HCl (Zofran) 4 mg IV Q4H PRN PRN Reason: Nausea Stop: 11/28/19 13:16 PG Care Time/CCT Total # of Minutes Spent Total Time Spent with Patient: Total time spent is greater than 50% in coordination of care (as documented) at patient's floor/unit and/or counseling patient:
--- NOTE | 2019-10-31 15:33 | Discharge Summary ---
Date of Service October 31, 2019 Admission HPI Per Admitting Provider 63yo M w/ hx of HLD and asthma who presents with chest pressure that is concerning for ACS. He reports he was awoken with substernal chest pressure that radiated to the left shoulder and down his left arm at approx. 3am. His reports that he had an episode of slurred speech the evening prior which has resolved. The patient reports he got up and tried to walk to his kitchen. He reports some extra clumsiness with his left foot, like he was having trouble walking. 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 He also noted some tingling in his left arm and leg. He also reports some shortness of breath and dizziness with the chest pressure. He reports his pain is still coming and going in small, 30-second waves that come, then let up, then come back again. At present he denies any dysarthria or dysphagia; however, he still reports some mild weakness in his left arm and leg as well as the continued clumsiness of those limbs. Principal Diagnosis Theresa-myocarditis Discharge Exam Constitutional WD/WN, vitals as above Eyes EOM intact bilaterally; no conjunctival abnormality ENMT external ear and nose normal, oropharynx normal Neck trachea midline, no thyromegaly normal visual inspection Respiratory normal respiratory effort, lungs clear to auscultation no respiratory distress Cardiovascular RRR, no murmur, no edema Gastrointestinal (Abdomen) Inspection/Auscultation: abdomen normal to inspection; abdomen not distended Musculoskeletal no cyanosis or clubbing, extremities motor strength 5/5 Skin no rashes, warm and dry Neurologic moves all extremities (Mild impairment of finger-nose testing in left arm and leg) and awake Speech / Cognition: no expressive aphasia Motor/Sensory: no tremor, normal movement, no fasciculations, no pronator drift and no asterixis Coordination: + abnormal [id number]-[id number] test (Left) and + abnormal [id number] test (Left) Psychiatric Orientation: alert, oriented to person and cooperative Discharge Data Allergies Allergy/AdvReac Type Severity Reaction Status Date / Time No Known Allergies Allergy Unknown . Verified 10/29/19 06:29 Consultations 10/29/19 07:21 ED Decision to Admit Stat 10/29/19 13:17 Consult Cardiology Routine Procedures Performed Operation Date: 10/29/19 10:00 Actual Procedures p Cath, Left with Cors and Vent - Morgan Rose MD s Cineradiography w/Routine Exam - Morgan Rose MD Ordered Studies 10/29/19 08:23 CT angio head w con Stat CT angio neck with con Stat 10/29/19 09:25 CL Cath Imgs for PACS use only Stat 10/29/19 09:48 MR brain wo con Stat Hospital Course (1) Myopericarditis: In the end, thought to be a viral myopericarditis from a cold virus from his grandkids. Chest pain improved and resolved by discharge. Troponin peaked at 17, then went down. - ASA 325 mg PO BID x 1 week, then 81 mg daily after. - Colchicine 0.6mg PO BID x 3 months. - Follow up with cardiology (2) Acute coronary syndrome: Convincing ACS with normal EKG, but elevated troponin. - Cath on 10/29 showed occlusive disease of a small OM1 -> Medical management. NO stents. - Continue ASA, started high-dose statin (encouraged to take his medications.) (3) Stroke-like symptom: Patient's reported an episode of dysarthria the evening before presentation which spontaneously resolved. In the ED, he reported left-sided weakness, numbness/tingling, and clumsiness. Concern for CVA; however, he was well outside of the tPA window as he woke up at 3am with these symptoms. - CTA head/neck on 10/29 showed no proximal occlusions, aneurysm, dissection, or high-grade stenosis. It did show mild narrowing of the V4 segment of the left vertebral artery. - MRI brain on 10/29 showed no CVA. - Unclear cause of symptoms apart from atypical ACS symptoms. - Resolved by discharge. (4) Dyslipidemia: Was not taking his statin at home because it was "low dose" and "probably not doing much for [him] anyhow." - Now on high-dose statin (5) Asthma: Does not take his Breo Ellipta on a consistent basis. Did report some shortness of breath in the ED, but no wheezing. - DuoNebs PRN - Breo inhaler if he brings it in. Total Time Total Time Spent Total Time Spent (In Minutes): 45 Total Time Includes: Examination of the Patient and Communication With Other Providers Discharge Plan Discharge Items Patient Disposition: Home - Self-Care Reason For Visit: NSTEMI Discharge Diagnosis: Myocarditis (inflammation of the heart) Activity: Resume your previous activity Non-emergency contact: Primary Care Provider and Card Painter Call non-emergency contact if: you have any medication questions, your pain is not controlled and your pain is worsening Follow-up/Referrals: Lesley Obregon CRNP [Primary Care Provider] - 11/11/19 10:30 am (Please, follow up at [facility] with Lesley STUART on MondayNovember 11 at 10:30 am. *If you need to change this appointment, call the office at [phone].) Alise Rowe PA-C [Physician Eggs Inspector] - 11/07/19 9:30 am (Please, follow up at the [facility] with Alise Rowe PA-C on November 07 at 9:30 am. *If you need to change this appointment, call the office at [phone].) Diet: Heart Healthy Addtl Attending Provider Instructions: Myocarditis medication instructions: 1) Take a full-strength aspirin (325 mg) two times per day for 1 week. 2) On November 06, switch to a baby-strength aspirin (81 mg) one time per day after that. Take this indefinitely. 3) Take the colchicine 0.6 mg two times every day until Dr. Rose tells you to stop. If you have any heart burn with the aspirin, you can take Zantak, Protonix, Nexium, or any other [id number]-[id number] heart burn medication. ACTIVITY RECOMMENDATIONS: Excess manipulation of the wrist should be avoided for the next 24-48 hours. * No lifting over 2 pounds (approximately a 1/2 gallon of milk) with the utilized arm for 24 hours. * No strenuous activity such as bowling or tennis for 3 days. * Keep the site of the procedure covered with a bandage for 24 hours. *You may shower the day after the procedure. Do not take a tub bath or submerge the puncture site in water for the next 3 days. *Do not operate any motorized equipment for 3 days. SPECIAL CARE INSTRUCTIONS: The site may be slightly bruised and sore following your procedure. Should any of the following occur, contact the Dr. who performed your procedure. 1. Redness/inflammation, swelling, chills, or fever, or colored drainage at pro cedure site within 3-7 days after your procedure. 2. Coldness, discoloration, ongoing numbness, severe pain, or swelling. Expect mild tingling of hand and tenderness at the puncture site for up to three days. If this persists beyond three days, or other symptoms develop, notify the Dr. who performed your procedure. BLEEDING: If the procedure site on your wrist begins to bleed, do not panic 1. Place 1 or 2 fingers firmly just slightly above the insertion site to stop the bleeding. You may be able to feel your pulse as you hold pressure. 2. Lift your finger after 5 minutes to see if the bleeding has stopped. 3. Once the bleeding has stopped, gently wipe the wrist area clean with a bandage. * If the bleeding from your wrist does not stop after 10 minutes, or if there is a large amount of bleeding or spurting, call 911 (do not drive yourself to the hospital). SKIN IRRITATION: * You may experience some redness and/or swelling in the area where radiation was administered. If any skin irritation occurs, please contact your family physician. FOLLOW UP VISIT: Keep any scheduled doctor appointments. Pending Studies at Discharge: No Stand-Alone Forms: Call Back Authorization, [facility], Smoking Cessation Medications and DC Order Prescriptions: New atorvastatin 40 mg Tablet 40 mg PO HS Qty: 30 RF: 0 colchicine [Colcrys] 0.6 mg Tablet 0.6 mg PO BID Qty: 60 RF: 1 aspirin 325 mg tablet 325 mg PO BID Qty: 14 RF: 0 Continued sertraline 50 mg tablet 50 mg PO DAILY Qty: 90 RF: 1 fluticasone furoate-vilanterol [Breo Ellipta] 200-25 mcg/dose blister with device See Rx Instructions .ROUTE .COMPLEX Qty: 60 RF: 5 Discontinued atorvastatin 10 mg tablet 10 mg PO DAILY Qty: 90 RF: 1 Discharge Orders: Discharge Order (Routine); Ordered 10/31/19 Ordered By: Amado Quezada Admission Data Admit Date/Time: 10/29/19 13:15 Attending Provider: Amado Quezada Admit Provider: Amado Quezada Primary Care Provider: Lesley Obregon Other Providers: Morgan Rose Other Interventions: Discharge Summary Assessment (RN) Last Done: 10/31/19 10:44 DC Date/Time DO NOT enter until pt leaves facility: 10/31/19 12:11
[2019-10-31] MEDS ORDERED: ASPIRIN 325 MG ECTAB PO SCH (21:00)
== END 2019-10-31 12:11 | disposition home or self-care (01) | DRG 287 ==
LOC: ED 05:58 → CC 11:46 → SUATTDRO 13:15 → 2S 13:15

== ENCOUNTER 2024-02-02 06:22 | Inpatient (IN) ==
--- NOTE | 2024-02-02 07:01 | Emergency Department Note ---
Impression & Plan Hypoxia, SOB (shortness of breath), Wheezing, Pneumonia, Failure of outpatient treatment ED Provider Note NAME: ESTEFANI PABLO AGE: 68 SEX: M : 1955 ARRIVES VIA: Walk-In INFORMANT: [Patient] ED PROVIDER(S): [Derick Finley MD] CHIEF COMPLAINT: Respiratory problems HISTORY OF PRESENT ILLNESS: The patient is a 68-year-old male who feels he has been suffering from some difficulty with his breathing for about 2 or so months. He states that he was here at the ED about a week ago and told he had bronchitis. He was given prednisone, Zithromax, albuterol for his nebulizer as well as Tessalon. He states that despite these meds, he is no better. The patient has not had fever but he does have a loose cough. He feels short of breath especially with exertion. This morning, his O2 saturation was around 80%, this was quite low for him, he presents to the ER for repeat evaluation. PMHx/PSHx/Social Hx: See Below PHYSICAL EXAM: GENERAL: Patient is in no acute distress. HEENT: No acute trauma, normocephalic atraumatic, mucous membranes moist, no nasal congestion. NECK: No stridor, no adenopathy, no meningismus, trachea is midline. LUNGS: Wheezing bilaterally with some very diminished breath sounds bilaterally. No respiratory distress. Breath sounds equal. HEART: Without murmurs gallops or rubs, regular rate and rhythm. ABDOMEN: Soft, nontender, no peritonitis. EXTREMITIES: No cyanosis, full range of motion of all the joints without pain or difficulty. NEUROLOGIC: Oriented x 3, no acute motor or sensory deficits, no focal weakness. SKIN: No jaundice, no diaphoresis. DIFFERENTIAL DIAGNOSIS: Bronchitis or pneumonia, PE, exacerbation of asthma, viral illness, among others. EMERGENCY DEPARTMENT PROCEDURES: MEDICAL DECISION MAKING: There is no leukocytosis or concerning anemia. There is a normal platelet count. No coagulopathy. No renal failure or significant electrolyte abnormality. No concerning liver enzyme elevation. ECG shows a normal sinus rhythm, no ischemia or dysrhythmia. Cardiac enzyme testing x 1 is not consistent with acute cardiac injury. Respiratory bio fire was completely negative. Chest film showed some chronic lung disease, no pneumonia or pneumothorax. No CHF. Chest CT does not show PE, a right middle lobe infection/abscess was felt present. The patient was given IV Zosyn, a DuoNeb, IV Solu-Medrol. The patient presents with persistent dyspnea. He was hypoxic earlier. He has failed outpatient management. He was found to have a pneumonia/abscess on CT imaging. Hospitalization is warranted. I spoke with the patient and case management, the on-call hospitalist was consulted. Prior/Outside records/notes reviewed: ED visit note from 01/19/2024 describing his presentation, the diagnosis and plan moving forward. ECG per my interpretation: Indication was shortness of breath. The ECG shows a normal sinus rhythm with a rate of 66. There is some baseline artifact. No acute ST elevation, no PVCs. The QTc is 396. Continuous Cardiac Monitoring per my interpretation: An order was placed for continuous cardiac monitoring. The monitor shows a rate of 76 with normal sinus rhythm. Imaging/x-ray results per my interpretation: Chest x-ray shows some chronic change, there is no pneumonia, CHF or pneumothorax. Chronic Medical/Social conditions affecting care: History of asthma. Care/Management discussed with: Case management, the on-call hospitalist. Level of care consideration(s): After review of the information above and other included data: --I believe the patient requires escalation of care to admission DISPOSITION: Admission Past Med/Surg History Medical History Dyslipidemia Surgical History History of tooth extraction History of cardiac catheterization Family History Mother Myocardial infarction, Onset Age: 67 Denies family history of Ovarian cancer Prostate cancer Breast cancer Colorectal cancer Social History Smoking Status: Former smoker Second Hand Exposure: No; Do You Dip or Chew Tobacco: No; Tobacco Cessation Education Requested by Patient: No Hx Alcohol Use: Yes Alcohol type: beer Hx Substance Use: No Preferred Language: Turkmen Communication Ability: Effective Hearing Ability: Normal 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 Required: No Beliefs That Will Affect Care: None marital status: Current Living Situation: Spouse current occupational status: employed and retired current occupation: [employer] How many Children do You have: 1 Other Information That Helps Us Care for You: No Feels Safe at Home: Yes Safety Concerns: Feels Safe At This Time Childhood Exposure to Second-Hand Smoke: No Diet: regular caffeine: Yes Dental Care, Regularly: No Physical Activity Frequency: Daily Seatbelt Use: always Sunscreen Use: Yes (sometimes) Assistive Devices: None Allergies Allergies Allergy/AdvReac Type Severity Reaction Status Date / Time No Known Drug Allergies Allergy Verified 12/11/23 08:53 Home Meds Previous Rx's Medication Instructions Recorded atorvastatin 40 mg tablet 40 mg PO HS #90 tabs 10/19/22 albuterol sulfate 90 mcg/actuation 2 puff inhalation QID PRN 12/11/23 aerosol inhaler shortness of breath or wheezing #24 grams montelukast 10 mg tablet 10 mg PO DAILY #30 tabs 12/11/23 albuterol sulfate 2.5 mg/3 mL 2.5 mg (3 mL) inhalation Q6H PRN 01/18/24 (0.083 %) solution for nebulization shortness of breath or wheezing #75 mL benzonatate 100 mg capsule 100 mg PO TID PRN cough #20 caps 01/18/24 Results & Data (ED) Vital Signs Vital Signs - 24 hr 02/02/24 06:26 02/02/24 06:38 02/02/24 07:21 Temperature 36.5 C Temperature Source Temporal Artery Scan Pulse Rate 80 76 Respiratory Rate 20 Blood Pressure 182/93 H Blood Pressure Mean 122 Pulse Oximetry 91 92 Oxygen Delivery Method Room Air Nasal Cannula Oxygen Flow Rate 2 Sepsis Recent Fever Within 48 Hours No Sepsis New/Unexplained Change in Mental Status No Sepsis Action Taken by Nursing No Action Required Oxygen Flow Rate - Titration Pulse Oximetry Post Tiitration 02/02/24 08:33 02/02/24 08:52 Temperature Temperature Source Pulse Rate Respiratory Rate Blood Pressure Blood Pressure Mean Pulse Oximetry 91 87 L Oxygen Delivery Method Nasal Cannula Room Air Oxygen Flow Rate 2 Sepsis Recent Fever Within 48 Hours Sepsis New/Unexplained Change in Mental Status Sepsis Action Taken by Nursing Oxygen Flow Rate - Titration 2 Pulse Oximetry Post Tiitration 91 Home Medications Current Medication List: was personally reviewed by me Laboratory Data Attestation: I reviewed the patient's lab results. 02/02/24 07:08 02/02/24 07:08 Lab Results 03/29/24 03/29/24 03/29/24 Range/Units 07:08 07:20 09:30 WBC 8.39 (4.8-10.8) K/ul RBC 4.62 L (4.70-6.10) M/uL Hgb 14.2 (14.0-18.0) g/dl Hct 42.7 (42.0-52.0) % MCV 92.4 (80.0-100.0) fL MCH 30.7 (25.0-34.0) pg MCHC 33.3 (32.0-36.0) g/dL RDW Std Deviation 46.1 (36.4-46.3) fL RDW Coeff of Jayson 13.5 (11.5-14.5) % Plt Count 203 (130-400) K/uL MPV 8.7 L (9.4-12.4) fL Immature Gran % (Auto) 0.4 % Neut % (Auto) 72.9 % Lymph % (Auto) 9.9 % [place] % (Auto) 7.0 % Eos % (Auto) 9.1 % Baso % (Auto) 0.7 % Neut # (Auto) 6.12 (1.40-6.50) K/uL Lymph # (Auto) 0.83 L (1.20-3.40) K/uL [place] # (Auto) 0.59 (0.11-0.59) K/uL Eos # (Auto) 0.76 H (0.00-0.50) K/uL Baso # (Auto) 0.06 (0.00-0.20) K/uL Immature Gran # (Auto) 0.03 (0.01-0.20) K/uL PT 11.0 (9.0-12.0) Seconds INR 1.0 (0.9-1.1) APTT 29 (21-31) Seconds PTT Ratio 1.0 Sodium 141 (136-145) mmol/L Potassium 4.0 (3.5-5.1) mmol/L Chloride 109 H (98-107) mmol/L Carbon Dioxide 25 (21-32) mmol/L Anion Gap 7 (3-11) BUN 14 (6-23) mg/dl Creatinine 0.74 (0.6-1.4) mg/dl Est Cr Clr Drug Dosing 102.0 ml/min Est GFR ( Amer) 108.3 ml/min Est GFR (Non-Af Amer) 93.5 ml/min BUN/Creatinine Ratio 18.9 (10-20) Glucose 147 H (70-99(Fasting)) mg/dl Calcium 9.2 (8.6-10.3) mg/dl Magnesium 2.0 (1.7-2.4) mg/dl Total Bilirubin 0.7 (0.2-1.0) mg/dl AST 22 (13-39) U/L ALT 27 (7-52) U/L Alkaline Phosphatase 71 (34-104) U/L Troponin I High Sens 4.9 (0-20) pg/ml Total Protein 6.4 (6.0-8.3) gm/dl Albumin 4.1 (3.4-5.0) gm/dl Globulin 2.3 L (2.5-4.0) gm/dl Albumin/Globulin Ratio 1.8 (0.9-2) Nasal Screen MRSA (PCR) Negative (Negative) Adenovirus (PCR) Not Detected (NotDetected) B. pertussis DNA (PCR) Not Detected (NotDetected) B.parapertussis DNA PCR Not Detected (NotDetected) C. pneumoniae DNA (PCR) Not Detected (NotDetected) Coronavirus OC43 (PCR) Not Detected (NotDetected) Coronavirus HKU1 (PCR) Not Detected (NotDetected) Coronavirus 229E (PCR) Not Detected (NotDetected) SARS-CoV-2 (PCR) Not Detected (NotDetected) Coronavirus NL63 (PCR) Not Detected (NotDetected) Human Metapneumovir PCR Not Detected (NotDetected) Influenza Type A (PCR) Not Detected (NotDetected) Influenza Type B (PCR) Not Detected (NotDetected) M. pneumoniae (PCR) Not Detected (NotDetected) Parainfluenza 1 (PCR) Not Detected (NotDetected) Parainfluenza 2 (PCR) Not Detected (NotDetected) Parainfluenza 3 (PCR) Not Detected (NotDetected) Parainfluenza 4 (PCR) Not Detected (NotDetected) RSV (PCR) Not Detected (NotDetected) Entero/Rhino (PCR) Not Detected (NotDetected) Administered Medications Benzonatate (Benzonatate 100 Mg Capsule) 100 mg PO TID PRN PRN Reason: cough Stop: 03/03/24 12:46 Last Admin: 02/02/24 13:50 Dose: 100 mg Documented By: HEATHER Enoxaparin Sodium (Enoxaparin Inj 40 Mg/0.4 Ml Syr) 40 mg SQ Q24H LEVI Stop: 03/03/24 12:59 Last Admin: 02/02/24 13:48 Dose: 40 mg Documented By: HEATHER Doxycycline Hyclate 100 mg/ (Dextrose) 100 mls @ 50 mls/hr IV Q12H LEVI Stop: 02/09/24 12:59 Last Admin: 02/02/24 13:44 Dose: 50 mls/hr Documented By: HEATHER Discontinued Medications Albuterol (Albut/Ipratrop 3mg/0.5mg Neb 3 Ml Vial) 3 ml NEB NOW STA; Protocol Stop: 02/02/24 06:59 Last Admin: 02/02/24 07:23 Dose: 3 ml Documented By: DAO Piperacillin Sod/Tazobactam Sod (Zosyn) 4.5 gm in 120 mls @ 240 mls/hr IV NOW ONE Stop: 02/02/24 09:54 Last Admin: 02/02/24 09:36 Dose: Not Given Documented By: DAO Vancomycin HCl 1,750 mg/ (Sodium Chloride) 535 mls @ 200 mls/hr IV NOW STA Stop: 02/02/24 12:34 Last Infusion: 02/02/24 14:46 Dose: Infused Documented By: Admin: 02/02/24 10:52 Dose: 200 mls/hr Documented By: DAO Ampicillin Sodium/Sulbactam Sodium 3,000 mg/ Sodium Chloride 100 mls @ 100 mls/hr IV ONE STA Stop: 02/02/24 10:53 Last Infusion: 02/02/24 11:15 Dose: Infused Documented By: Admin: 02/02/24 10:18 Dose: 100 mls/hr Documented By: DAO Doxycycline Hyclate 100 mg/ (Dextrose) 100 mls @ 50 mls/hr IV ONE STA Stop: 02/02/24 13:17 Last Admin: 02/02/24 12:52 Dose: Not Given Documented By: HEATHER Ioversol (Optiray 320 125ml) 119 ml IV ONCE ONE Stop: 02/02/24 08:53 Last Admin: 02/02/24 08:53 Dose: 119 ml Documented By: KIN Methylprednisolone (Methylprednisolone 125 Mg/2 Ml Vial) 60 mg IV NOW STA Stop: 02/02/24 06:59 Last Admin: 02/02/24 07:24 Dose: 60 mg Documented By: DAO Imaging Data Radiologist's Impression: Chest X-Ray 02/02/24 06:57 XR chest 1V portable CLINICAL HISTORY: Dyspnea COMPARISON STUDY: Chest CT January 17, 2008. Chest radiograph January 18, 2024. FINDINGS: Patient is mildly rotated. There is no pneumothorax or pleural effusion. Calcified left midlung nodule is unchanged. There is no evidence for pulmonary edema. No consolidation is identified. Density at the right cardiophrenic angle favors epicardial fat pad. IMPRESSION: No acute cardiopulmonary findings. ACT 112: Negative or not required by law. Electronically signed by: Eloy Mora M.D. 02/02/2024 7:21 AM Chest CTA 02/02/24 06:58 CT ANGIOGRAPHY OF THE CHEST, PULMONARY EMBOLUS PROTOCOL CLINICAL HISTORY: Shortness of breath. Cough. Wheezing. Evaluate for pulmonary embolus. COMPARISON STUDY: Chest CT January 17, 2008. Chest radiograph performed earlier today. TECHNIQUE: Following IV administration of mL of Optiray, helical axial images of the chest were obtained utilizing the pulmonary embolus protocol. Maximal intensity projections and sagittal and coronal reformats were viewed on an independent 3D workstation. IV contrast was administered without complication. Automated exposure control was utilized for the study. A dose lowering technique was utilized adhering to the principles of ALARA. CT DOSE: 616.68 mGy.cm FINDINGS: No pulmonary emboli are identified. There is no thoracic aortic dissection. Size the heart is normal. There is no pericardial effusion. Moderate coronary artery calcification is present. Mild aortic valvular calcification is noted. There is no pneumothorax or pleural effusion. Bilateral lower lobe bronchial wall thickening is present. Secretions within the airways are noted. There is ground glass opacity within the right middle lobe. A 4.2 x 1.5 cm subpleural fluid and gas containing focus within the medial right middle lobe is noted on image 79 of 247. Visualized portions of the upper abdomen are unremarkable. IMPRESSION: 1. No pulmonary emboli identified. 2. 4.2 x 1.5 cm subpleural fluid and gas containing focus within the medial right middle lobe. Although nonspecific, an infectious etiology such as cavitary/necrotizing pneumonia is favored. Adjacent groundglass opacity within the right middle lobe also favors an infectious etiology. A follow-up chest CT in 2 months to ensure resolution is recommended to exclude the less likely possibility of an underlying lesion. 3. Bilateral lower lobe bronchial wall thickening with secretions within the airways. ACT 112: Negative or not required by law. Electronically signed by: Eloy Mora M.D. 02/02/2024 9:20 AM Discharge Plan Visit Data Chief Complaint: Respiratory Problems Stated Complaint: BREATHING PROBLEMS ED Provider: Derick Finley Discharge Problem: Hypoxia, SOB (shortness of breath), Wheezing, Pneumonia, Failure of outpatient treatment Patient Disposition: Admitted As Inpatient Condition: Fair Discharge Instructions Interventions: ED Discharge Assessment Last Done: 02/02/24 11:44 Discharge Problem: Pneumonia Qualifiers: Pneumonia type: due to unspecified organism Laterality: right Lung location: m iddle lobe of lung Qualified Code(s): J18.9 - Pneumonia, unspecified organism
[2024-02-02] MEDS: ALBUT/IPRATROP 3MG/0.5MG NEB 3 ML VIAL NEB STA (07:23)
--- NOTE | 2024-02-02 07:23 | XRay Report ---
XR chest 1V portable CLINICAL HISTORY: Dyspnea COMPARISON STUDY: Chest CT January 17, 2008. Chest radiograph January 18, 2024. FINDINGS: Patient is mildly rotated. There is no pneumothorax or pleural effusion. Calcified left mid lung nodule is unchanged. There is no evidence for pulmonary edema. No consolidation is identified. D ensity at the right cardiophrenic angle favors epicardial fat pad. IMPRESSION: No acute cardiopulmonary findings. ACT 112: Negative or not required by law. Electronically signed by: Eloy Mora M.D. 02/02/2024 7:21 AM
[2024-02-02] MEDS: methylPREDNISolone 125 MG/2 ML VIAL IV STA (07:24)
[2024-02-02 07:43] LABS: Basophils # (auto) 0.06 K/uL (0.00-0.20); Basophils % (auto) 0.7 %; Eosinophils # (auto) 0.76 K/uL (0.00-0.50); Eosinophils % (auto) 9.1 %; Hematocrit (blood only) 42.7 % (42.0-52.0); Hemoglobin 14.2 g/dl (14.0-18.0); Immature Granulocytes # (auto) 0.03 K/uL (0.01-0.20); Immature Granulocytes % (auto) 0.4 %; Lymphocytes # (auto) 0.83 K/uL (1.20-3.40); Lymphocytes % (auto) 9.9 %; Mean Corpuscular Hemoglobin 30.7 pg (25.0-34.0); Mean Corpuscular Hgb Conc 33.3 g/dL (32.0-36.0); Mean Corpuscular Volume 92.4 fL (80.0-100.0); Mean Platelet Volume 8.7 fL (9.4-12.4); Monocytes # (auto) 0.59 K/uL (0.11-0.59); Neutrophils # (auto) 6.12 K/uL (1.40-6.50); Neutrophils % (auto) 72.9 %; Platelet Count 203 K/uL (130-400); RDW Coefficient of Variation 13.5 % (11.5-14.5); RDW Standard Deviation 46.1 fL (36.4-46.3); Red Blood Count 4.62 M/uL (4.70-6.10); White Blood Count 8.39 K/ul (4.8-10.8)
[2024-02-02 07:54] LABS: Partial Thromboplastin Time 29 Seconds (21-31)
[2024-02-02 08:08] LABS: Albumin Globulin Ratio 1.8 (0.9-2); Albumin Level 4.1 gm/dl (3.4-5.0); BUN Creatinine Ratio 18.9 (10-20); Bilirubin,Total 0.7 mg/dl (0.2-1.0); Calcium 9.2 mg/dl (8.6-10.3); Est GFR (African American) 108.3 ml/min; Est GFR (Non-African American) 93.5 ml/min; Globulin 2.3 gm/dl (2.5-4.0); Total Protein 6.4 gm/dl (6.0-8.3)
[2024-02-02 08:13] LABS: Troponin I High Sensitivity 4.9 pg/ml (0-20)
[2024-02-02 08:37] LABS: Adenovirus PCR Not Detected (NotDetected); Bordetella parapertussis PCR Not Detected (NotDetected); Bordetella pertussis PCR Not Detected (NotDetected); Chlamydia pneumoniae PCR Not Detected (NotDetected); Coronavirus 229E PCR Not Detected (NotDetected); Coronavirus CoV-2 (COVID19)PCR Not Detected (NotDetected); Coronavirus HKU1 PCR Not Detected (NotDetected); Coronavirus NL63 PCR Not Detected (NotDetected); Coronavirus OC43PCR Not Detected (NotDetected); Human Metapneumovirus PCR Not Detected (NotDetected); Influenza A PCR Not Detected (NotDetected); Influenza B PCR Not Detected (NotDetected); Mycoplasma pneumoniae PCR Not Detected (NotDetected); Parainfluenza Virus 1 PCR Not Detected (NotDetected); Parainfluenza Virus 2 PCR Not Detected (NotDetected); Parainfluenza Virus 3 PCR Not Detected (NotDetected); Parainfluenza Virus 4 PCR Not Detected (NotDetected); Respiratory Syncytial VirusPCR Not Detected (NotDetected); Rhinovirus/Enterovirus PCR Not Detected (NotDetected)
[2024-02-02] MEDS: OPTIRAY 320 125ml IV ONE (08:53)
--- NOTE | 2024-02-02 09:22 | CT Scan Report ---
CT ANGIOGRAPHY OF THE CHEST, PULMONARY EMBOLUS PROTOCOL CLINICAL HISTORY: Shortness of breath. Cough. Wheezing. Evaluate for pulmonary embolus. COMPARISON STUDY: Chest CT January 17, 2008. Chest radiograph performed earlier today. TECHNIQUE: Following IV administration of mL of Optiray, helical axial images of the chest were obtai john utilizing the pulmonary embolus protocol. Maximal intensity projections and sagittal and coronal reformats were viewed on an independent 3D workstation. IV contrast was administered without compli cation. Automated exposure control was utilized for the study. A dose lowering technique was utiliz ed adhering to the principles of ALARA. CT DOSE: 616.68 mGy.cm FINDINGS: No pulmonary emboli are identified. There is no thoracic aortic dissection. Size the heart is normal. There is no pericardial effusion. Moderate coronary artery calcification is present. Mild aortic valvular calcification is noted. There is no pneumothorax or pleural effusion. Bilateral lowe r lobe bronchial wall thickening is present. Secretions within the airways are noted. There is ground glass opacity within the right middle lobe. A 4.2 x 1.5 cm subpleural fluid and gas containing focus within the medial right middle lobe is noted on image 79 of 247. Visualized portions of the upper ab domen are unremarkable. IMPRESSION: 1. No pulmonary emboli identified. 2. 4.2 x 1.5 cm subpleural fluid and gas containing focus within the medial right middle lobe. Althou gh nonspecific, an infectious etiology such as cavitary/necrotizing pneumonia is favored. Adjacent gr oundglass opacity within the right middle lobe also favors an infectious etiology. A follow-up chest CT in 2 months to ensure resolution is recommended to exclude the less likely possibility of an under lying lesion. 3. Bilateral lower lobe bronchial wall thickening with secretions within the airways. ACT 112: Negative or not required by law. Electronically signed by: Eloy Mora M.D. 02/02/2024 9:20 AM
[2024-02-02] MEDS ORDERED: VANCOMYCIN CONSULT ACTIVE PRN (09:30)
[2024-02-02] MEDS: PIPERACILLIN/TAZOBACTAM 4.5 GM/120 ML BAG IV ONE (09:36)
--- NOTE | 2024-02-02 09:51 | History & Physical Report ---
Date of Service February 02, 2024 Assessment & Plan (1) Necrotizing pneumonia: Plan: Necrotizing PNA - 2 weeks of sx. Some transient improvement with steroids followed by worsening. +chills. +hypoxia - CTA no PE, +RML necrotizing PNA. Unasyn/Vancomycin/doxy ordered. Patient will need repeat CT in 6 to 8 weeks and if not improving/resolving will need followup bronchoscopy to r/o malignancy - Sputum culture, blood culture, MRSA nare pending - Pt is not septic on admission -Saturating normally on 2 L oxygen at time bedside assessment. Wean as tolerated (2) Asthma: Plan: Mild, well-controlled Prior to his current illness 2 weeks ago denies nighttime awakenings, wheezing at night or during the day, or limitations due to his asthma. Had been switched from Breo inhaler to Singulair due to cost but this had been working well for him. Many years ago had looked into alternative such as Advair/Dulera but they were expensive at the time and has not needed to look into these recently. Patient treated for potential asthma exacerbation/bronchitis 1 week ago without improvement, suspect symptoms were due to pneumonia as above Patient has end expiratory wheezing on forced expiration most prominent in the right middle lobe on exam Continue Singulair, albuterol as needed, methylprednisolone 40 mg daily Will check with insurance if Symbicort/Advair would be a cost beneficial alternative to him if needed (3) CAD (coronary artery disease): Plan: With history of CAD and mild residual disease, patient denies any chest pressure/anginal symptoms in the preceding few months or prior to admission Continue aspirin 81 mg daily. Patient reports he is intermittently compliant with this, encouraged to continue taking this for prevention. Patient also takes his atorvastatin about one third of the time at home. This is continued on admission Troponin is normal No acute ischemic EKG nsr, no acute ischemic changes Patient with reported BP of 182/93, no headache/vision change and coughing during cycling. Blood pressure at rest 140s, additional antihypertensive treatment not indicated at time of admitting assessment (4) Dyslipidemia: Plan: Atorvastatin as noted Plan DVT prophylaxis: Lovenox Diet: Heart healthy Disposition: Medical surgical CODE STATUS: Full code History of Present Illness Primary Care Provider: SADE Jiménez Tahir is a 68-year-old male with a history of CAD with distal residual disease with no recent anginal symptoms on aspirin and no history of stents, asthma on Singulair and albuterol as needed, aortic valve sclerosis, anxiety, BPH who presents with approximately 2 weeks of shortness of breath, cough, and difficulty breathing. Shortness of breath, cough, difficulty breathing which began at least 7 days ago, thinks it was probably a week before that. [place] the steroids helped a little bit and was working around the house and then progressively worsened over the next few days. Has exercise induced asthma and moving boxes and getting ready to move seems to exacerbate this. SpO2 meter at home was 79-80s at home, does not have an oxygen requirement normally cough is minimally productive for clear whitish sputum +night sweats last night, soaked the bed. No fevers that he knows of. No rigors Has had some rib discomfort with cough, denies exertional angina/pressure/neck pain otherwise No nausea/vomiting No diarrhea/constipation no abdominal pain Using albuterol, has not been using Breo --> was switched to Singulair and has been using this as directed. Switched a few months ago due to cost. Many years ago was trialed on some alternative inhalers including Dulera and Advair but they were expensive at the time, has not looked into these recently. Does note that prior to his illness 2 weeks ago he was doing well and while he has had nighttime wheezing, awakenings, and nighttime shortness of breath prior to this snored a little bit but was not having significant wheezing/nighttime awakening with the Singulair. Hx of distal coronary disease, denies chest pain/pressure last few months or exertional angina. Supposed to asa 81mg daily, takes this sporadically/intermittently. Takes atorvastatin about 1/3 of the time he should 'if I think about it I'll take one' Medical History: Reviewed Medications: Reviewed Surgical History: Reviewed Family history: Reviewed Allergies: Reviewed Social History: No tobacco product use. Rare social etoh use. No rec drug use Code Status: Full Code Allergies Allergy/AdvReac Type Severity Reaction Status Date / Time No Known Drug Allergies Allergy Verified 12/11/23 08:53 Home Medications Medication Instructions Recorded Confirmed Type atorvastatin 40 mg tablet 40 mg PO HS #90 tabs 10/19/22 02/02/24 Rx albuterol sulfate 90 mcg/actuation 2 puff inhalation QID PRN 12/11/23 02/02/24 Rx aerosol inhaler shortness of breath or wheezing #24 grams montelukast 10 mg tablet 10 mg PO DAILY #30 tabs 12/11/23 02/02/24 Rx albuterol sulfate 2.5 mg/3 mL 2.5 mg (3 mL) inhalation Q6H PRN 01/18/24 02/02/24 Rx (0.083 %) solution for nebulization shortness of breath or wheezing #75 mL benzonatate 100 mg capsule 100 mg PO TID PRN cough #20 caps 01/18/24 02/02/24 Rx Past Med/Surg History Medical History Dyslipidemia Surgical History History of tooth extraction History of cardiac catheterization Family History Mother Myocardial infarction, Onset Age: 67 Denies family history of Ovarian cancer Prostate cancer Breast cancer Colorectal cancer Social History Smoking Status: Former smoker Second Hand Exposure: No; Do You Dip or Chew Tobacco: No; Hx Alcohol Use: Yes Alcohol type: beer Hx Substance Use: No Preferred Language: Urdu Communication Ability: Effective Hearing Ability: Normal Brazing Machine Feeder Required: No Beliefs That Will Affect Care: None marital status: Current Living Situation: Spouse current occupational status: employed and 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 NAD. Cooperative. HEENT: Atraumatic, normocephalic. Pulm: CTAB A&P. -wheezes, -rales, -rhonchi with normal respiration. on forced expiration diffuse high pitched expiratory wheezing worst in RML. Cardiac: RRR, -mrg. Radial pulses intact and symmetrical. Abdominal: Nontender, nondistended, soft. BS present. Ext: warm, dry. Results & Data Results & Data Vital Signs (Past 12 Hours) Vital Signs Temp Pulse Resp BP Pulse Ox O2 Del Method O2 Flow Rate 02/02/24 08:52 87 L Room Air 02/02/24 08:33 91 Nasal Cannula 2 02/02/24 07:21 92 Nasal Cannula 2 02/02/24 06:38 76 02/02/24 06:26 36.5 C 80 20 182/93 H 91 Room Air PG Care Time/CCT Total # of Minutes Spent Total Time Spent with Patient: Total time spent is greater than 50% in coordination of care (as documented) at patient's floor/unit and/or counseling patient: Coding Level of Care Code 25023 INT INP/OBS CARE MIN Diagnoses Necrotizing pneumonia J85.0 Uncomplicated asthma, unspecified asthma severity, unspecified whether persist ent J45.901 Asthma complication type: with acute exacerbation Asthma persistence: unspecified Asthma severity: mild Coronary artery disease without angina pectoris, unspecified vessel or lesion type, unspecified whether [place] or transplanted heart I25.10 Associated angina: without angina Coronary Disease-Associated Artery/Lesion type: unspecified vessel or lesion type [place] vs. transplanted heart: unspecified whether [place] or transplanted heart Dyslipidemia E78.5 (2) Asthma Asthma complication type: with acute exacerbation Asthma persistence: unspecified Asthma severity: mild Qualified Code(s): J45.901 - Unspecified asthma with (acute) exacerbation (3) CAD (coronary artery disease) Associated angina: without angina Coronary Disease-Associated Artery/Lesion t ype: unspecified vessel or lesion type [place] vs. transplanted heart: unspecified whether [place] or transplanted heart Qualified Code(s): I25.10 - Atherosclerotic heart disease of [place] coronary artery without angina pectoris
[2024-02-02] MEDS: AMPICILLIN/SULBACTAM SOD 3,000 MG in SODIUM CHLOR 0.9% MINI-B 100 ML IV STA (10:18)
[2024-02-02] MEDS ORDERED: ACETAMINOPHEN 325 MG TAB PO PRN (10:27)
[2024-02-02] MEDS: VANCOMYCIN HCL 1,750 MG in SODIUM CHLORIDE 0.9% 500 ML IV STA (10:52)
[2024-02-02] MEDS ORDERED: ALBUTEROL HFA 8 GM INHALER INH PRN (12:47)
[2024-02-02] MEDS ORDERED: POLYETHYLENE (MIRALAX) 17 GM PACK PO PRN (12:47)
[2024-02-02] MEDS: DOXYCYCLINE HYCLATE 100 MG in DEXTROSE 5% MINI-B 100 ML IV STA (12:52)
--- NOTE | 2024-02-02 13:08 | Pharmacy Report ---
Pharmacy PK ABX Note - Date of Service February 02, 2024 - Assessment and Plan Assessment 68 year old M receiving vancomycin/Unasyn/doxycycline for treatment of necrotizing pneumonia. Pertinent microbiologic data includes: negative MRSA Nasal Swab, blood cultures pending. Day # 1 of antimicrobial therapy. Plan Vancomycin * Loading dose: 1750 mg IV x 1 * Maintenance dose: 1250 mg IV every 12 hours * Regimen is predicted to achieve target AUC/EMERITA of 400-600 mg/L.hr * Random level ordered for: 02/04/24 with AM labs Pharmacy will continue to follow and will adjust dose/frequency as necessary. Thank you. Pharmacy has transitioned to AUC monitoring for vancomycin. AUC/EMERITA is the preferred PK/PD target and is associated with decreased risk of nephrotoxicity compared to traditional trough targets.
[2024-02-02] MEDS: DOXYCYCLINE HYCLATE 100 MG in DEXTROSE 5% MINI-B 100 ML IV SCH (13:44)
[2024-02-02] MEDS: ENOXAPARIN INJ 40 MG/0.4 ML SYR SQ SCH (13:48)
[2024-02-02] MEDS: BENZONATATE 100 MG CAPSULE PO PRN (13:50)
[2024-02-02] MEDS: AMPICILLIN/SULBACTAM SOD 3,000 MG in SODIUM CHLOR 0.9% MINI-B 100 ML IV SCH (15:51)
--- NOTE | 2024-02-02 16:13 | Electrocardiogram Report ---
Test Reason : Blood Pressure : / mmHG Vent. Rate : 066 BPM Atrial Rate : 066 BPM P-R Int : 170 ms QRS Dur : 080 ms QT Int : 378 ms P-R-T Axes : 067 058 065 degrees QTc Int : 396 ms Normal sinus rhythm Normal ECG When compared with ECG of 18-JAN-2024 20:04, Criteria for Septal infarct are no longer Present Confirmed by Maynor Valdez ([id number]) on 02/02/2024 4:13:28 PM Referred By: REFERRED SELF Confirmed By:Maynor Valdez
[2024-02-02] MEDS ORDERED: VANCOMYCIN HCL 1,250 MG in SODIUM CHLORIDE 0.9% 500 ML IV SCH (17:00)
[2024-02-02] MEDS ORDERED: VANCOMYCIN HCL 1,250 MG in SODIUM CHLORIDE 0.9% 250 ML IV SCH (20:00)
[2024-02-02] MEDS: ATORVASTATIN 40 MG TAB PO SCH (20:47)
[2024-02-03 06:28] LABS: Basophils # (auto) 0.02 K/uL (0.00-0.20); Basophils % (auto) 0.2 %; Eosinophils # (auto) 0.02 K/uL (0.00-0.50); Eosinophils % (auto) 0.2 %; Hematocrit (blood only) 42.6 % (42.0-52.0); Hemoglobin 14.8 g/dl (14.0-18.0); Immature Granulocytes # (auto) 0.07 K/uL (0.01-0.20); Immature Granulocytes % (auto) 0.6 %; Lymphocytes # (auto) 1.14 K/uL (1.20-3.40); Lymphocytes % (auto) 9.3 %; Mean Corpuscular Hemoglobin 31.5 pg (25.0-34.0); Mean Corpuscular Hgb Conc 34.7 g/dL (32.0-36.0); Mean Corpuscular Volume 90.6 fL (80.0-100.0); Mean Platelet Volume 8.8 fL (9.4-12.4); Monocytes # (auto) 0.94 K/uL (0.11-0.59); Monocytes % (auto) 7.7 %; Neutrophils # (auto) 10.03 K/uL (1.40-6.50); Platelet Count 233 K/uL (130-400); RDW Coefficient of Variation 13.5 % (11.5-14.5); White Blood Count 12.22 K/ul (4.8-10.8)
[2024-02-03 07:10] LABS: BUN Creatinine Ratio 22.5 (10-20); Calcium 9.3 mg/dl (8.6-10.3); Creatinine Clr Calc Pharmacy 94.3 ml/min; Est GFR (African American) 104.9 ml/min; Est GFR (Non-African American) 90.5 ml/min; Potassium 4.1 mmol/L (3.5-5.1)
--- NOTE | 2024-02-03 07:32 | Hospitalist Progress Note ---
Date of Service February 03, 2024 Assessment & Plan (1) Pneumothorax: (2) Hypoxia: (3) Necrotizing pneumonia: (4) Ex-smoker: (5) SOB (shortness of breath): (6) Asthma: (7) CAD (coronary artery disease): Plan Patient is a 68 yo M w/ a PMHx of CAD with distal residual disease with no recent anginal symptoms on aspirin and no history of stents, asthma on Singulair and albuterol as needed, aortic valve sclerosis, anxiety, BPH who presents with approximately 2 weeks of shortness of breath, cough, and difficulty breathing. (1) Necrotizing pneumonia Necrotizing PNA - 2 weeks of sx. Some transient improvement with steroids followed by worsening. +chills. +hypoxia - CTA no PE, +RML necrotizing PNA. Unasyn/Vancomycin/doxy ordered initially ordered but changed, see below. Patient will need repeat CT in 6 to 8 weeks and if not improving/resolving will need followup bronchoscopy to r/o malignancy - Sputum culture, blood culture, MRSA nare Cx pending - Pt is not septic on admission -Saturating normally on 2 L oxygen upon admission - Patient's Abx broadened to P[place], Vancomycin, and doxycycline 2) Pneumothorax - patient reported pleuritic chest pain on r. side that radiated to his back and was needing 35 L, 80% O2 to maintain his O2 sats at 90% with more relief when sitting up and leaning forward - Repeat CXR today revealed interval change in patient's lungs with r. pneumothorax noted on exam - chest tube placed by environmental protection forester, patient now stable - Patient ex-smoker, Dx w/ asthma and states that father had a pneumothorax during case of pneumonia years ago - Patient has no other know risk factors including: current smoking, COPD, tuberculosis infxn, sarcoidosis, malignancy, pulmonary fibrosis, not of unusual thin and tall built - presentation and symptoms consistent w/ secondary pneumothorax, suggests patient might benefit from further workup to assess for presence of risk factors (2) Asthma Mild, well-controlled Prior to his current illness 2 weeks ago denies nighttime awakenings, wheezing at night or during the day, or limitations due to his asthma. Had been switched from Breo inhaler to Singulair due to cost but this had been working well for him. Many years ago had looked into alternative such as Advair/Dulera but they were expensive at the time and has not needed to look into these recently. Patient treated for potential asthma exacerbation/bronchitis 1 week ago without improvement, suspect symptoms were due to pneumonia as above Patient has end expiratory wheezing on forced expiration most prominent in the right middle lobe on exam Continue Singulair, albuterol as needed, methylprednisolone 40 mg daily Will check with insurance if Symbicort/Advair would be a cost beneficial alternative to him if needed (3) CAD (coronary artery disease): With history of CAD and mild residual disease, patient denies any chest p ressure/anginal symptoms in the preceding few months or prior to admission Continue aspirin 81 mg daily. Patient reports he is intermittently compliant with this, encouraged to continue taking this for prevention. Patient also takes his atorvastatin about one third of the time at home. This is continued on admission Troponin is normal upon admission and normal the following morning during c hest pain No acute ischemic EKG, NSR, no acute ischemic changes upon admission; 1st repeat EKG following morning also NSR, no ischemic changes; 2nd repeat EKG with noticeable artifacts due to patient's profuse sweating, inability to secure leads on chest well but no acute ischemic changes Patient with reported BP of 182/93, no headache/vision change and coughing during cycling. Blood pressure at rest 140s, additional antihypertensive treatment not indicated at time of admitting assessment (4) Dyslipidemia Atorvastatin as noted Plan DVT prophylaxis: Lovenox Diet: Heart healthy Disposition: Medical surgical CODE STATUS: Full code Admission and Anticipated Discharge Date Admission Date: February 02, 2024 Supervising Physician Co-Signing Physician Notes I personally examined the patient and verified all boyd points of history and exam, discussed case, and agree with decision making with Dr Sharp seen 3x today. dr sharp noted worsening respiratory distress - we expanded abx coverage, increased FiO2 and pt still had ELAM but was comfortable at rest when i saw him first. later wosrening respiratory distress and recurrence of pleuritic CP - pt had self-removed O2 and with time and a nebulizer was getting more comfortable. 3rd time sudden recurrence of distress while exam did not suggest anything new obtained stat CXR as i was going to see him - and had pneumothorax/immediately alerted pulmonary/reassesssed pt - overall stable O2 sats and breathing despite a degree of distress, but on high flow NC O2 Vitals noted, in general on his first visit he was in no distress, quite talkative, lungs faintly coarse throughout more or less symmetric may be slightly quieter on the right but adventitious sounds present bilaterally and air entry noted bilaterally. Same with follow-up visits although the adventitious sounds were slightly louder. In his follow-up visits he did appear uncomfortable due to pleuritic pain on visit #2 he was also fairly diaphoretic. Visit #3 that had cleared up. He was requiring 80% high flow on first visit 100% high flow on second and third. Chest x-ray showed a moderate-sized pneumothorax not present yesterday on x-ray or CT. Pneumoniawith area of apparent necrosiscontinue broad antibiotic coverage. Initial plan was to treat, follow, and then as he was getting more stable consider follow-up imaging versus bronchoscopy, obviously with sputum sampling pending. Given pneumothorax, pulmonary is now involved, and when he is more stable, possibly sooner bronchoscopy at their discretion. Pneumothorax appears to be spontaneous informed pulmonary as soon as it was identified, chest tube placed promptly by pulmonary, input greatly appreciated. DVT prophylaxis with Lovenox Review of Systems Constitutional: no fever and no chills Respiratory: + cough, + dyspnea and + pain on inspira tion Cardiovascular: + chest pain, + dyspnea at rest and + or thopnea; no radiating jaw, neck or arm pain Physical Exam Constitutional: well developed, well nourished, + acute distress, cooperative and + diaphoretic Respiratory: + respiratory distress, + labored breath ing, + uses accessory muscles, + cough and + tachypneic Auscultation: + wheezes; breath sounds present and no diminished lung sounds Cardiovascular: RRR, no murmur, no edema Psychiatric: A+Ox3, euthymic affect Results & Data Results & Data Vital Signs (Past 12 Hours) Vital Signs Temp Pulse Resp BP Pulse Ox O2 Del Method O2 Flow Rate 02/02/24 21:14 Nasal Cannula 2 02/02/24 20:48 36.8 C 78 16 139/73 91 Nasal Cannula 2 (6) Asthma Asthma severity: mild Asthma persistence: unspecified Asthma complication type: with acute exacerbation Qualified Code(s): J45.901 - Unspecified asthma with (acute) exacerbation (7) CAD (coronary artery disease) Coronary Disease-Associated Artery/Lesion type: unspecified vessel or lesion type [place] vs. transplanted heart: unspecified whether [place] or transplanted heart Associated angina: without angina Qualified Code(s): I25.10 - Atherosclerotic heart disease of [place] coronary artery without angina pectoris
[2024-02-03] MEDS: FLUTICASONE/VILANTEROL 100/25MCG 14 PUFFS/INHALER INH SCH (08:41)
[2024-02-03] MEDS: MONTELUKAST SODIUM 10 MG TABLET PO SCH (08:41)
[2024-02-03] MEDS: methylPREDNISolone 40 MG in SYRINGE 0 ML IV SCH (08:41)
[2024-02-03] MEDS: ALBUTEROL 0.083% NEBU SOLN 3 ML VIAL INH PRN (08:55)
[2024-02-03] MEDS ORDERED: methylPREDNISolone 125 MG/2 ML VIAL IV SCH (09:00)
[2024-02-03 12:50] LABS: Base Excess ABG -0.1 mEq/L (-9-1.8); HCO3 ABG 24 mmol/L (19-24); Oxygen Saturation ABG 90.7 % (90-95); PCO2 ABG 36 mmHg (35-46); PO2 ABG 58 mmHg (80-95); pH ABG 7.43 (7.35-7.45)
[2024-02-03 12:51] LABS: Allen Test Pos (Pos)
[2024-02-03] MEDS: SODIUM CHLOR 7% 4 ML NEB ONE (13:30)
--- NOTE | 2024-02-03 14:15 | XRay Report ---
XR chest 1V portable HISTORY: increased oxygen requirements COMPARISON: Chest 02/02/2024. FINDINGS: Interval development of a moderate to large right pneumothorax demonstrate a maximal pleura l gap of 5.4 cm. No significant midline shift at this time. There are bibasilar airspace opacities. N o pleural effusions. The heart is stable in size. No acute fractures. IMPRESSION: Interval development of a moderate to large right pneumothorax. This was communicated to the patient' s professor of nursing, Dr. Sharp at the time of dictation. ACT 112: Negative or not required by law. Electronically signed by: Hoang Leal M.D. 02/03/2024 2:14 PM
[2024-02-03] MEDS: PIPER/TAZO 4.5g in D5W MINI-B 100 ML IV ONE (14:50)
[2024-02-03] MEDS: LIDOCAINE 1% LOCAL 20 ML VIAL ONE (15:06)
--- NOTE | 2024-02-03 15:26 | Pulmonary Consultation ---
Date of Consultation February 03, 2024 Assessment & Plan (1) SOB (shortness of breath): (2) Necrotizing pneumonia: (3) Asthma: Asthma severity: mild Asthma persistence: unspecified Asthma complication type: with acute exacerbation Qualified Code(s): J45.901 - Unspecified asthma with (acute) exacerbation (4) Pneumothorax: (5) Ex-smoker: Plan CT chest 02/02/2024 personally reviewed: Groundglass opacity with cavitary pneumonia in the right middle lobe Right lower lobe cyst No significant mediastinal lymphadenopathy -- Spontaneous secondary pneumothorax Etiology is likely from necrotizing pneumonia Malignancy still cannot be totally ruled out S/p chest tube placement 02/03/2024 -- Pneumonia Continue with antibiotics --History of asthma as a child Continue with Breo and montelukast while in the hospital -- Ex-smoker Approximately [id number] smoking history Quit at the age of 33 Encouraged to continue abstinence from smoking Plan: Continue with chest tube to waterseal Daily chest x-rays Pain management Continue with antibiotics with atypical coverage Avoid positive pressure ventilation which includes but not limited to BiPAP as well as high flow. DC flutter valve. Keep O2 saturation between 90-92% Please note the above document was generated using voice recognition software. It may contain grammatical, syntax or spelling errors.Any formal questions or concerns about the content, text or information contained within the body of this dictation should be directly addressed to the provider for clarification. History of Present Illness Attending Physician: Kurtis Johnson DO History of Present Illness 76-year-old male was admitted to the hospital with complaints of shortness of breath and pneumonia Past medical history: Coronary artery disease, anxiety, BPH Pulmonary consulted as a stat consult for moderate right-sided pneumothorax and chest pain At the time of examination patient was in respiratory distress. He was complaining of chest pain. He was on high flow 40 L, 100%. Saturating 93-94% The chest pain was on the right side retrosternal and going to the back. Denied any nausea or vomiting Shortness of breath was there when he took deep breath. No headache, no blurry vision Social history: Approximately [id number] smoking history, quit at the age of 33. 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 No history of lung cancer in the family Allergies Allergy/AdvReac Type Severity Reaction Status Date / Time No Known Drug Allergies Allergy Verified 12/11/23 08:53 Home Medications Medication Instructions Recorded Confirmed Type atorvastatin 40 mg tablet 40 mg PO HS #90 tabs 10/19/22 02/02/24 Rx albuterol sulfate 90 mcg/actuation 2 puff inhalation QID PRN 12/11/23 02/02/24 Rx aerosol inhaler shortness of breath or wheezing #24 grams montelukast 10 mg tablet 10 mg PO DAILY #30 tabs 12/11/23 02/02/24 Rx albuterol sulfate 2.5 mg/3 mL 2.5 mg (3 mL) inhalation Q6H PRN 01/18/24 02/02/24 Rx (0.083 %) solution for nebulization shortness of breath or wheezing #75 mL benzonatate 100 mg capsule 100 mg PO TID PRN cough #20 caps 01/18/24 02/02/24 Rx Patient History Medical History Dyslipidemia Surgical History History of tooth extraction History of cardiac catheterization Family History Mother Myocardial infarction, Onset Age: 67 Denies family history of Ovarian cancer Prostate cancer Breast cancer Colorectal cancer Social History Smoking Status: Former smoker Second Hand Exposure: No; Do You Dip or Chew Tobacco: No; Tobacco Cessation Education Requested by Patient: No Hx Alcohol Use: Yes Alcohol type: beer Hx Substance Use: No Preferred Language: Kyrgyz Communication Ability: Effective Hearing Ability: Normal Hebrew Teacher Required: No Beliefs That Will Affect Care: None marital status: Current Living Situation: Spouse current occupational status: employed and retired current occupation: [employer] How many Children do You have: 1 Other Information That Helps Us Care for You: No Feels Safe at Home: Yes Safety Concerns: Feels Safe At This Time Childhood Exposure to Second-Hand Smoke: No Diet: regular caffeine: Yes Dental Care, Regularly: No Physical Activity Frequency: Daily Seatbelt Use: always Sunscreen Use: Yes (sometimes) Assistive Devices: None Review of Systems 2 Review of Systems: All systems reviewed & are unremarkable except as noted in HPI & below Physical Exam 2 Physical Exam: Constitutional: In respiratory distress HEENT: EOMI, PERRLA, no subcu emphysema Respiratory system: Decreased air entry on the right side, no wheeze, no rhonchi, mild crackles bilaterally CVS: S1-S2 positive, no murmurs or gallops Abdomen: Soft, nontender, nondistended, positive bowel sounds x4 Extremities: +2 pulses bilaterally radialis/ dorsalis pedis, no cyanosis, no edema Neuro: Awake alert oriented x3 Psych: Normal mood and affect G/U: No [place] Skin: no rashes, warm and dry Lymphatic: no cervical or axillary lymphadenopathy Results & Data Results & Data Vital Signs (Past 12 Hours) Vital Signs Temp Pulse Resp BP Pulse Ox O2 Del Method O2 Flow Rate 02/03/24 11:18 79 20 90 High Flow Nasal Cannula 35 02/03/24 09:27 78 20 93 High Flow Nasal Cannula 30 02/03/24 08:57 89 20 85 L Nasal Cannula 2 02/03/24 08:45 Nasal Cannula 2 02/03/24 08:40 Nasal Cannula 2 02/03/24 07:35 36.5 C 67 18 163/83 H 94 Room Air FiO2 02/03/24 11:18 80 02/03/24 09:27 75 02/03/24 08:57 02/03/24 08:45 02/03/24 08:40 02/03/24 07:35 Laboratory Results 02/03/24 05:55 02/03/24 05:55 PG Care Time/CCT Total # of Minutes Spent Total Time Spent with Patient: Total time spent is greater than 50% in coordination of care (as documented) at patient's floor/unit and/or counseling patient: Coding Level of Care Code 62340 INT INP/OBS CARE 75MIN Diagnoses SOB (shortness of breath) R06.02 Necrotizing pneumonia J85.0 Uncomplicated asthma, unspecified asthma severity, unspecified whether persistent J45.901 Asthma severity: mild Asthma persistence: unspecified Asthma complication type: with acute exacerbation Pneumothorax J93.9 Ex-smoker Z87.891
--- NOTE | 2024-02-03 15:29 | Procedure Note ---
Procedure Note Date of Service February 03, 2024 Note Procedure: Pigtail chest tube insertion Outpatient Therapist: Dr. Vianey Tyson Indication: Moderate right-sided pneumothorax Consent: Signed by patient and verified with timeout prior to procedure Anesthesia: 1% lidocaine without epinephrine local Procedure: Consent was verified and timeout performed. Appropriate imaging studies were reviewed prior to the procedure. Patient was placed in a seated position. With the help of ultrasound it was made sure that the positioning at the insertion site of the pigtail catheter is above the diaphragm. No lung sliding was appreciated on the ultrasound Appropriate site above the diaphragm on the right midaxillary line fourth intercostal space for chest tube insertion was selected. The skin was prepped and draped in normal sterile fashion. Lidocaine was used for local analgesia. Air was aspirated via the finder needle. A small skin joshua was made with the scalpel and the catheter over the needle apparatus was advanced over the rib into the pleural space. With the help of guidewire and Seldinger technique, 14 [place] pigtail catheter was inserted and connected to Pleur-evac. Air leak was appreciated which was variable with each breath Chest x-ray to follow The patient tolerated the procedure without obvious complication Complications: None Blood loss: Less than 1 cc. Coding CPT Codes Pulmonary/Thoracic - Pulmonary and Thoracic: 25590 Tube thoracostomy ([id number]) Pulmonary/Thoracic - Pulmonary and Thoracic: 57497 US, Chest, real time with imaging documentation ([id number]) [facility] [place] Codes (Charges) Pulmonary/Thoracic Procedure 1: Pulmonary and Thoracic: 86868 Tube thoracostomy Procedure 2: Pulmonary and Thoracic: 56843 US, Chest, real time with imaging documentation
--- NOTE | 2024-02-03 15:35 | XRay Report ---
SINGLE VIEW CHEST CLINICAL HISTORY: Chest tube placement. FINDINGS: An AP, portable, upright chest radiograph is compared to study dated 02/03/2024 and correlat ed with chest CT dated 02/02/2024. The cardiomediastinal silhouette is top normal for projection. A ch est tube has been placed at the right lung base. There is a small residual right apical pneumothorax with approximately 1 cm of pleural separation. There may be atelectasis of the right middle lobe. Con solidation and trace pleural fluid is seen in the right lung base. Left lung appears clear noting bib asilar atelectasis. No pneumothorax is seen on the left. The skeletal structures are osteopenic. The bony thorax is grossly intact. IMPRESSION: 1. A right-sided chest tube has been placed as above. There is a small residual right apical pneumoth orax. 2. Consolidation and trace pleural fluid is seen in the right lung base 3. Question atelectasis of the right middle lobe. ACT 112: Negative or not required by law. Electronically signed by: Derick Gimenez M.D. 02/03/2024 3:33 PM
--- NOTE | 2024-02-03 15:52 | Billing Data ---
Date of Service February 03, 2024 Coding Level of Care Code 31020 SUB INP/OBS CARE MIN
[2024-02-03] MEDS: KETOROLAC TROMETHAMINE 15 MG/ML VIAL IV ONE (18:01)
[2024-02-03] MEDS: PIPERACILLIN/TAZOBACTAM 4.5 GM in DEXTROSE 5% MINI-B 100 ML IV SCH (18:10)
[2024-02-03] MEDS: KETOROLAC TROMETHAMINE 15 MG/ML VIAL IV PRN (18:23)
[2024-02-03] MEDS ORDERED: SODIUM CHLOR 7% 4 ML NEB NEB SCH (19:00)
[2024-02-03] MEDS: ACETAMINOPHEN 325 MG TAB PO SCH (20:39)
[2024-02-04 06:12] LABS: Basophils # (auto) 0.03 K/uL (0.00-0.20); Basophils % (auto) 0.2 %; Eosinophils # (auto) 0.05 K/uL (0.00-0.50); Eosinophils % (auto) 0.4 %; Hematocrit (blood only) 41.6 % (42.0-52.0); Hemoglobin 14.2 g/dl (14.0-18.0); Immature Granulocytes # (auto) 0.05 K/uL (0.01-0.20); Immature Granulocytes % (auto) 0.4 %; Lymphocytes % (auto) 13.6 %; Mean Corpuscular Hemoglobin 31.2 pg (25.0-34.0); Mean Corpuscular Hgb Conc 34.1 g/dL (32.0-36.0); Mean Corpuscular Volume 91.4 fL (80.0-100.0); Mean Platelet Volume 8.8 fL (9.4-12.4); Monocytes # (auto) 1.01 K/uL (0.11-0.59); Monocytes % (auto) 8.1 %; Neutrophils # (auto) 9.62 K/uL (1.40-6.50); Neutrophils % (auto) 77.3 %; Platelet Count 213 K/uL (130-400); RDW Coefficient of Variation 13.3 % (11.5-14.5); RDW Standard Deviation 45.2 fL (36.4-46.3); Red Blood Count 4.55 M/uL (4.70-6.10); White Blood Count 12.46 K/ul (4.8-10.8)
[2024-02-04] MEDS: MoRPHine SULFATE 2 MG/ML CARP IV PRN (06:31)
--- NOTE | 2024-02-04 06:50 | Hospitalist Progress Note ---
Date of Service February 04, 2024 Assessment & Plan (1) Pneumothorax: (2) Hypoxia: (3) Necrotizing pneumonia: (4) Ex-smoker: (5) SOB (shortness of breath): (6) Asthma: (7) CAD (coronary artery disease): Plan Patient is a 68 yo M w/ a PMHx of CAD with distal residual disease with no recent anginal symptoms on aspirin and no history of stents, asthma on Singulair and albuterol as needed, aortic valve sclerosis, anxiety, BPH who presents with approximately 2 weeks of shortness of breath, cough, and difficulty breathing. (1) Necrotizing pneumonia Necrotizing PNA - 2 weeks of sx. Some transient improvement with steroids followed by worsening. +chills. +hypoxia - CTA no PE, +RML necrotizing PNA. Unasyn/Vancomycin/doxy ordered initially ordered but changed, see below. Patient will need repeat CT in 6 to 8 weeks and if not improving/resolving will need followup bronchoscopy to r/o malignancy - Sputum culture, blood culture, MRSA nare Cx pending - Pt is not septic on admission -Saturating normally on 2 L oxygen upon admission - Patient's Abx narrowed back to Pip-Tazo, Vancomycin, and doxycycline 2) Pneumothorax - patient reported pleuritic chest pain on r. side that radiated to his back and was needing 35 L, 80% O2 to maintain his O2 sats at 90% with more relief when sitting up and leaning forward - Repeat CXR 02/03/24 revealed interval change in patient's lungs with r. pneumothorax noted on exam --> chest tube placed by [employer], patient now stable - Repeat CXR 02/04/24 did not reveal any change in size of right-sided pneumothorax - Patient ex-smoker, Dx w/ asthma and states that father had a pneumothorax during case of pneumonia years ago - Patient has no other known risk factors including: current smoking, COPD, tuberculosis infxn, sarcoidosis, malignancy, pulmonary fibrosis, not of unusual thin and tall built - presentation and symptoms consistent w/ secondary pneumothorax, suggests patient might benefit from further workup to assess for presence of risk factors (2) Asthma Mild, well-controlled Prior to his current illness 2 weeks ago denies nighttime awakenings, wheezing at night or during the day, or limitations due to his asthma. Had been switched from Breo inhaler to Singulair due to cost but this had been working well for him. Many years ago had looked into alternative such as Advair/Dulera but they were expensive at the time and has not needed to look into these recently. Patient treated for potential asthma exacerbation/bronchitis 1 week ago without improvement, suspect symptoms were due to pneumonia as above Patient has end expiratory wheezing on forced expiration most prominent in the right middle lobe on exam Continue Singulair, albuterol as needed, methylprednisolone 40 mg daily Will check with insurance if Symbicort/Advair would be a cost beneficial alternative to him if needed (3) CAD (coronary artery disease): With history of CAD and mild residual disease, patient denies any chest pressure/anginal symptoms in the preceding few months or prior to admission Continue aspirin 81 mg daily. Patient reports he is intermittently compliant with this, encouraged to continue taking this for prevention. Patient also takes his atorvastatin about one third of the time at home. This is continued on admission Troponin is normal upon admission and normal the following morning during chest pain No acute ischemic EKG, NSR, no acute ischemic changes upon admission; 1st repeat EKG following morning also NSR, no ischemic changes; 2nd repeat EKG with noticeable artifacts due to patient's profuse sweating, inability to secure leads on chest well but no acute ischemic changes; troponins also have all been below threshold of concern Patient with reported BP of 182/93, no headache/vision change and coughing during cycling. Blood pressure at rest 140s, additional antihypertensive treatment not indicated at time of admitting assessment (4) Dyslipidemia Atorvastatin as noted Plan DVT prophylaxis: Lovenox Diet: Heart healthy Disposition: Medical surgical CODE STATUS: Full code Admission and Anticipated Discharge Date Admission Date: February 02, 2024 Supervising Physician Co-Signing Physician Notes I personally examined the patient and verified all boyd points of history and exam, discussed case, and agree with decision making with Dr Aron Ny doing much better. Breathing better although he does feel a degree of shortness of breath, and a degree of chest pain particularly with deep inspirati on or a cough. Pain is overall controlled. vitals noted, in general he is awake and alert pleasant no distress. HEENT normocephalic atraumatic mucous membranes moist. Breathing unlabored no accessory muscle use good effort. Skin shows no rashes no pallor or icterus. Neuro without focal deficits. Pneumoniawith area of apparent necrosiscontinue broad antibiotic coverage, But given that his worsening yesterday was clearly related to his pneumothorax not a rapidly worsening infection, I do not see the need to continue pseudomonal coverageswitching Zosyn back to Unasyn. Given the area of necrosis, continuing MRSA coverage with vancomycin, continuing atypical coverage with doxycycline. appreciate pulmonary management of chest tube, as well as assistance in working up the necrotic pneumonia. Clinically appears much better today than yesterday. Continue current care and close follow-up otherwise. DVT prophylaxis with Lovenox Review of Systems Constitutional: no fever, no chills, no fatigue and no weakness Ear, Nose, Mouth, Throat: + nasal congestion; no nasal discharge a nd no sore throat Respiratory: + cough (less coughing up of phlegm), + dyspnea and + pain on inspiration (pain worse w/ breathing) Cardiovascular: + chest pain, + dyspnea at rest and + or thopnea; no radiating jaw, neck or arm pain and no palpitations Gastrointestinal: no abdominal pain, no nausea, no vomiting and no diarrhea/loose stools Genitourinary: no dysuria or no urinary frequency Physical Exam Constitutional: well developed, well nourished and cooperative; no acute distress and not diaphoretic Respiratory: + cough; no respiratory distress, no lab ored breathing, does not use accessory muscles and not tachypneic Auscultation: + wheezes; breath sounds present and no diminished lung sounds Cardiovascular: RRR, no murmur, no edema Gastrointestinal (Abdomen): normal bowel sounds, soft, nontender, no hepatosplenomegaly Psychiatric: A+Ox3, euthymic affect Results & Data Results & Data Vital Signs (Past 12 Hours) Vital Signs Temp Pulse Resp BP BP Pulse Ox O2 Del Method 02/04/24 03:31 36.7 C 52 L 16 147/78 H 97 Nasal Cannula 02/03/24 23:00 High Flow Nasal Cannula 02/03/24 23:00 36.7 C 66 22 143/70 H 96 Nasal Cannula 02/03/24 18:54 36.7 C 65 17 148/81 H 93 Nasal Cannula O2 Flow Rate 02/04/24 03:31 8.0 02/03/24 23:00 02/03/24 23:00 8 02/03/24 18:54 8 Resident Activity Tracking Resident Involvement: Resident Care Provided Care Provided: Adult Hospital Medicine (6) Asthma Asthma complication type: with acute exacerbation Asthma persistence: unsp ecified Asthma severity: mild Qualified Code(s): J45.901 - Unspecified asthma with (acute) exacerbation (7) CAD (coronary artery disease) Associated angina: without angina Coronary Disease-Associated Artery/Lesion type: unspecified vessel or lesion type [place] vs. transplanted heart: unspecified whether [place] or transplanted heart Qualified Code(s): I25.10 - Atherosclerotic heart disease of [place] coronary artery without angina pectoris
[2024-02-04 07:00] LABS: BUN Creatinine Ratio 32.2 (10-20); Calcium 9.2 mg/dl (8.6-10.3); Creatinine Clr Calc Pharmacy 86.7 ml/min; Est GFR (African American) 101.3 ml/min; Est GFR (Non-African American) 87.4 ml/min; Potassium 3.9 mmol/L (3.5-5.1)
[2024-02-04] MEDS ORDERED: VANCOMYCIN LEVEL ONE (07:00)
--- NOTE | 2024-02-04 07:10 | Pulmonology Progress Note ---
Date of Service February 04, 2024 Assessment & Plan (1) SOB (shortness of breath): (2) Necrotizing pneumonia: (3) Asthma: Asthma complication type: with acute exacerbation Asthma persistence: unspecified Asthma severity: mild Qualified Code(s): J45.901 - Unspecified asthma with (acute) exacerbation (4) Pneumothorax: (5) Ex-smoker: Plan CT chest 02/02/2024 personally reviewed: Groundglass opacity with cavitary pneumonia in the right middle lobe Right lower lobe cyst No significant mediastinal lymphadenopathy -- Spontaneous secondary pneumothorax Etiology is likely from necrotizing pneumonia Malignancy still cannot be totally ruled out S/p chest tube placement 02/03/2024 -- Pneumonia Continue with antibiotics --History of asthma as a child Continue with Breo and montelukast while in the hospital -- Ex-smoker Approximately [id number] smoking history Quit at the age of 33 Encouraged to continue abstinence from smoking Plan: Chest x-ray from today shows small right apical pneumothorax, at bedside there was no continuous leak on the chest tube. I connected the chest tube to -20 suction. No continuous air leak. There is worsening of left-sided pleural effusion. 20 mg of Lasix given to the patient Daily chest x-rays Continue with antibiotics with atypical coverage Avoid positive pressure ventilation which includes but not limited to BiPAP as well as high flow. Keep O2 saturation between 90-92% Case was discussed with RN at bedside Please note the above document was generated using voice recognition software. It may contain grammatical, syntax or spelling errors.Any formal questions or concerns about the content, text or information contained within the body of this dictation should be directly addressed to the provider for clarification. Admission and Anticipated Discharge Date Admission Date: February 02, 2024 Subjective Patient seen and examined at bedside. No acute distress. Overnight he had some pain on the right side for which repeat chest x-ray was done and did not show any change Right now he said he is feeling better. Denied any chest pain. Does have some discomfort at the site of the chest tube Fair appetite, no nausea vomiting No headache, no blurry vision Has been afebrile He was saturating 88-89% on 8 L nasal cannula. Review of Systems 2 Review of Systems: All systems reviewed & are unremarkable except as noted in Subjective Physical Exam 2 Physical Exam: Constitutional: No respiratory distress HEENT: EOMI, PERRLA, no subcu emphysema Respiratory system: Decreased air entry on the right side, no wheeze, no rhonchi, positive crackles bilaterally, more on the right side CVS: S1-S2 positive, no murmurs or gallops Abdomen: Soft, nontender, nondistended, positive bowel sounds x4 Extremities: +2 pulses bilaterally radialis/ dorsalis pedis, no cyanosis, no edema Neuro: Awake alert oriented x3 Psych: Normal mood and affect G/U: No [place] Skin: no rashes, warm and dry Lymphatic: no cervical or axillary lymphadenopathy Results & Data Results & Data Vital Signs (Past 12 Hours) Vital Signs Temp Pulse Resp BP Pulse Ox O2 Del Method O2 Flow Rate 02/04/24 03:31 36.7 C 52 L 16 147/78 H 97 Nasal Cannula 8.0 02/03/24 23:00 High Flow Nasal Cannula 02/03/24 23:00 36.7 C 66 22 143/70 H 96 Nasal Cannula 8 Laboratory Results 02/04/24 05:39 02/04/24 05:39 PG Care Time/CCT Total # of Minutes Spent Total Time Spent with Patient: Total time spent is greater than 50% in coordination of care (as documented) at patient's floor/unit and/or counseling patient: Coding Level of Care Code 80300 SUB INP/OBS CARE 3/50MIN Diagnoses SOB (shortness of breath) R06.02 Necrotizing pneumonia J85.0 Uncomplicated asthma, unspecified asthma severity, unspecified whether persistent J45.901 Asthma complication type: with acute exacerbation Asthma persistence: unspecified Asthma severity: mild Pneumothorax J93.9 Ex-smoker Z87.891
--- NOTE | 2024-02-04 07:22 | XRay Report ---
SINGLE VIEW CHEST CLINICAL HISTORY: Pneumothorax. Chest tube. FINDINGS: An AP, portable, upright chest radiograph is compared to study performed earlier the same d ay 02/04/2024 and correlated with chest CT dated 02/02/2024. The cardiomediastinal silhouette is top no rmal for projection. A chest tube at the right lung base is unchanged in position. A small residual r ight apical pneumothorax is unchanged. There are small pleural effusions with dependent consolidation . There is no left-sided pneumothorax. The skeletal structures are osteopenic. The bony thorax is leticia ssly intact. IMPRESSION: 1. A right-sided chest tube is unchanged in position. A small residual right apical pneumothorax is u nchanged. 2. Layering pleural effusions with bibasilar consolidation. The left pleural effusion has modestly in creased from previous. ACT 112: Negative or not required by law. Electronically signed by: Derick Gimenez M.D. 02/04/2024 7:20 AM
--- NOTE | 2024-02-04 07:22 | XRay Report ---
SINGLE VIEW CHEST CLINICAL HISTORY: Pneumothorax. Chest tube. FINDINGS: An AP, portable, upright chest radiograph is compared to study performed earlier the same d ay 02/03/2024 and correlated with chest CT dated 02/02/2024. The cardiomediastinal silhouette is top no rmal for projection. A chest tube at the right lung base is unchanged in position. A small residual r ight apical pneumothorax is unchanged. There are layering pleural effusions with bibasilar consolidat ion. A calcified granuloma is noted on the left. There is no left-sided pneumothorax. The skeletal st ructures are osteopenic. The bony thorax is grossly intact. IMPRESSION: 1. A right-sided chest tube is unchanged in position. A small residual right apical pneumothorax is u nchanged. 2. Small pleural effusions with dependent consolidation. ACT 112: Negative or not required by law. Electronically signed by: Derick Gimenez M.D. 02/04/2024 7:21 AM
[2024-02-04] MEDS: FUROSEMIDE INJ 20 MG/2 ML VIAL IV ONE (07:53)
--- NOTE | 2024-02-04 13:07 | Billing Data ---
Date of Service February 04, 2024 Coding Level of Care Code 25070 SUB INP/OBS CARE MIN
[2024-02-04] MEDS: AMPICILLIN/SULBACTAM SOD 3,000 MG in SODIUM CHLOR 0.9% MINI-B 100 ML IV SCH (14:44)
--- NOTE | 2024-02-05 06:55 | XRay Report ---
XR chest 1V portable HISTORY: 68 years-old Male f/u acute shortness of breath COMPARISON: 02/04/2024 TECHNIQUE: AP view of the chest FINDINGS: Cardiac silhouette is enlarged. Right basilar pigtail pleural catheter appears to be in stable positi oning. Layering pleural effusions with bibasilar consolidation again noted. Probable trace residual r ight apical pneumothorax. Bones appear grossly intact. Calcified granuloma lateral left midlung. IMPRESSION: 1. Right basilar pigtail pleural drainage catheter in place with probable trace residual right apical pneumothorax. 2. Layering pleural effusions with bibasilar consolidation redemonstrated. ACT 112: Negative or not required by law. The above report was generated using voice recognition software. It may contain grammatical, syntax o r spelling errors. Electronically signed by: Kyler Simpson M.D. 02/05/2024 6:53 AM
--- NOTE | 2024-02-05 06:57 | Hospitalist Progress Note ---
Date of Service February 05, 2024 Assessment & Plan (1) Pneumothorax: (2) Hypoxia: (3) Necrotizing pneumonia: (4) Ex-smoker: (5) SOB (shortness of breath): (6) Asthma: (7) CAD (coronary artery disease): Plan Pt is a 68 yo M w/ a PMHx of CAD without stent placement or anginal symptoms, asthma on Singulair and albuterol as needed, aortic valve sclerosis, anxiety, and BPH who presents on 02/01 with approximately 2 weeks of shortness of breath, cough, and difficulty breathing found to have necrotizing pneumonia which was then complicated with pneumothorax, here for further management. Today, chest tube in place but disconnected from suction by pulm for possible removal later today. Continue IV antibiotics until chest tube removed, then may switch to oral such as augmentin for 4-6 weeks. #Necrotizing pneumonia - 2 weeks of sx, had some transient improvement with steroids followed by worsening symtpoms days later - CTA on admission; no PE, +RML necrotizing PNA - initially on unasyn/Vancomycin/doxy ordered initially ordered but changed, now on amp + doxy, initially on vanc as well but dropped as MRSA nare neg - Patient will need repeat CT in 6 to 8 weeks and if not improving/resolving will need followup bronchoscopy to r/o malignancy - Sputum culture; wnl, blood culture; neg 48 hrs, MRSA nare; neg - continue to wean O2 as tolerated - continue IV AB coverage with amp + doxy while chest tube in place, once removed will consider transition to oral #Pneumothorax - patient reported pleuritic chest pain on r. side that radiated to his back and was needing 35 L, 80% O2 to maintain his O2 sats at 90% with more relief when sitting up and leaning forward - Repeat CXR 02/03/24 revealed interval change in patient's lungs with r. pneumothorax noted on exam --> chest tube placed by head of integrated media, patient now stable - Repeat CXR 02/04/24 did not reveal any change in size of right-sided pneumothorax - Patient ex-smoker, Dx w/ asthma and states that father had a pneumothorax during case of pneumonia years ago - Patient has no other known risk factors including: current smoking, COPD, tuberculosis infxn, sarcoidosis, malignancy, pulmonary fibrosis, not of unusual thin and tall built - presentation and symptoms consistent w/ secondary pneumothorax, - pulm consulted; chest tube placed 02/02, in place today #Asthma, mild, Patient treated for potential asthma exacerbation/bronchitis 1 week ago without improvement, suspect symptoms were due to pneumonia as above Continue Singulair, albuterol as needed, - pt was on IV methylprednisolone 40 mg daily here for 2 days, discontinued today #CAD (coronary artery disease) With history of CAD and mild residual disease, patient denies any chest pressure/anginal symptoms in the preceding few months or prior to admission Continue aspirin 81 mg daily and atorvastatin. Patient reports he is intermittently compliant with these, encouraged to continue taking this for prevention Troponin is normal upon admission and normal the following morning during chest pain No acute ischemic EKG, NSR, no acute ischemic changes upon admission; 1st repeat EKG following morning also NSR, no ischemic changes; 2nd repeat EKG with noticeable artifacts due to patient's profuse sweating, inability to secure leads on chest well but no acute ischemic changes; troponins also have all been below threshold of concern Patient with reported BP of 182/93, no headache/vision change and coughing during cycling. Blood pressure at rest 140s, additional antihypertensive treatment not indicated at time of admitting assessment #Dyslipidemia continue home Atorvastatin DVT prophylaxis: Lovenox Admission and Anticipated Discharge Date Admission Date: February 02, 2024 Supervising Physician Co-Signing Physician Notes Attending Physician Supervision Note: I independently interviewed and examined the patient and verified the boyd history and physical, reviewed labs and image studies and agree with findings and care plan noted above. Necrotizing pneumonia - RML cavitary lesion. Neg sputum and blood cx. On IV ampicillin and doxycycline. -check for legionella - if negative- transition to augmentin on discharge. -repeat CT in 6-8wks - per Pulm Spontaneous Right Pneumothorax - later in the hospital stay. s/p Pigtail catheter placement - removed today. History of tobacco abuse - -No known diagnosis of COPD. to have outpatient PFT. -d/ekta steroids. Acute respiratory failure - sec to pneumothorax. resolved. CXR findings of pulmonary vascular congestion and trace to small bilateral pleural effusion - s/p lasix dose 02/03. follow. Subjective Pt is a 68 yo M w/ a PMHx of CAD without stent placement or anginal symptoms, asthma on Singulair and albuterol as needed, aortic valve sclerosis, anxiety, and BPH who presents on 02/01 with approximately 2 weeks of shortness of breath, cough, and difficulty breathing found to have necrotizing pneumonia which was then complicated with pneumothorax, here for further management. Today, pt states he is feeling overall pretty good. He states he does have some discomfort where the chest tube is and his upper and middle R lung when he coughs. He states otherwise he is just feeling sort of restless today. No other questions or concerns at this point in time. States before all this started he had bronchitis. No recent travel outside of the country, never been out of the country before, and no sick contacts with anyone he knows about with TB. Review of Systems Review of Systems: Constitutional: denies fever, chills, Cardio: denies palpitations Resp: denies shortness of breath, GI: denies abdominal pain, nausea, vomiting, Physical Exam Physical Exam: General:Alert and oriented, no acute distress, HEENT: Normocephalic, moist oral mucosa, Cardio: Regular rate and rhythm, no murmur, Chest: chest tube in place on R lateral chest wall Resp:Lungs clear to auscultation b/l, some wheezing noted in the apices of the lungs bilaterally GI: Soft and nontender, nondistended, bowel sounds active Skin: Warm, pink, dry, Results & Data Results & Data Vital Signs (Past 12 Hours) Vital Signs Temp Pulse Pulse Resp BP Pulse Ox O2 Del Method 02/05/24 03:50 36.7 C 53 L 18 128/78 95 Nasal Cannula 02/04/24 23:09 55 L 02/04/24 22:23 36.6 C 56 L 18 153/70 H 97 Nasal Cannula 02/04/24 20:40 High Flow Nasal Cannula 02/04/24 19:30 36.7 C 58 L 18 140/79 95 Nasal Cannula O2 Flow Rate 02/05/24 03:50 8.0 02/04/24 23:09 02/04/24 22:23 8.0 02/04/24 20:40 8 02/04/24 19:30 8.0 Resident Activity Tracking Resident Involvement: Resident Care Provided Care Provided: Adult Hospital Medicine (6) Asthma Asthma complication type: with acute exacerbation Asthma persistence: unspecified Asthma severity: mild Qualified Code(s): J45.901 - Unspecified asthma with (acute) exacerbation (7) CAD (coronary artery disease) Associated angina: without angina Coronary Disease-Associated Artery/Lesion type: unspecified vessel or lesion type [place] vs. transplanted heart: u nspecified whether [place] or transplanted heart Qualified Code(s): I25.10 - Atherosclerotic heart disease of [place] coronary artery without angina pectoris
[2024-02-05 08:33] LABS: Basophils # (auto) 0.02 K/uL (0.00-0.20); Basophils % (auto) 0.2 %; Eosinophils # (auto) 0.16 K/uL (0.00-0.50); Eosinophils % (auto) 1.9 %; Hematocrit (blood only) 43.2 % (42.0-52.0); Hemoglobin 14.6 g/dl (14.0-18.0); Immature Granulocytes # (auto) 0.03 K/uL (0.01-0.20); Immature Granulocytes % (auto) 0.3 %; Lymphocytes # (auto) 2.04 K/uL (1.20-3.40); Lymphocytes % (auto) 23.8 %; Mean Corpuscular Hgb Conc 33.8 g/dL (32.0-36.0); Mean Corpuscular Volume 91.7 fL (80.0-100.0); Mean Platelet Volume 8.8 fL (9.4-12.4); Monocytes % (auto) 4.7 %; Neutrophils # (auto) 5.93 K/uL (1.40-6.50); Neutrophils % (auto) 69.1 %; Platelet Count 238 K/uL (130-400); RDW Coefficient of Variation 13.2 % (11.5-14.5); RDW Standard Deviation 44.7 fL (36.4-46.3); Red Blood Count 4.71 M/uL (4.70-6.10); White Blood Count 8.58 K/ul (4.8-10.8)
[2024-02-05 08:53] LABS: BUN Creatinine Ratio 28.9 (10-20); Calcium 9.3 mg/dl (8.6-10.3); Creatinine Clr Calc Pharmacy 90.9 ml/min; Est GFR (African American) 103.3 ml/min; Est GFR (Non-African American) 89.2 ml/min; Potassium 3.9 mmol/L (3.5-5.1)
--- NOTE | 2024-02-05 09:19 | Pulmonology Progress Note ---
Date of Service February 05, 2024 Assessment & Plan (1) SOB (shortness of breath): (2) Necrotizing pneumonia: (3) Asthma: Asthma severity: mild Asthma persistence: unspecified Asthma complication type: with acute exacerbation Qualified Code(s): J45.901 - Unspecified asthma with (acute) exacerbation (4) Pneumothorax: (5) Ex-smoker: Plan 68-year-old male with a history of former tobacco abuse, anxiety and aortic valve sclerosis who presented to the hospital with community-acquired pneumonia. Found to have right middle lobe cavitary lesion on CT chest. Also found to have a spontaneous pneumothorax later this hospitalization status post right- sided pigtail catheter placement with a 14 [place] tube. Currently the patient is on -20 cm suction of water. There is no air leak noted after flushing the chest tube with 30 cc of saline. I disconnected the suction and placed a chest tube on waterseal. Will repeat a chest x-ray in [place] roximately 3 hours since changing him to waterseal. Anticipate potential removal of chest tube later today. Continue broad-spectrum antibiotics and will strongly consider repeating a CT chest in 6 to 8 weeks to follow-up on the right middle lobe cavitary lesion. Pulmonary will continue to follow. Thank you for the consult. Admission and Anticipated Discharge Date Admission Date: February 02, 2024 Subjective Patient seen and examined. Breathing overall is better, but still has pain around the chest tube insertion site. He still notes he becomes short of breath with minimal exertion such as moving about in bed. Cough is better. Review of Systems Review of Systems: All systems reviewed & are unremarkable except as noted in HPI & below Physical Exam Physical Exam: Constitutional: No respiratory distress HEENT: EOMI, PERRLA, no subcu emphysema Respiratory system: Decreased air entry on the right side, no wheeze, no rhonchi, positive crackles bilaterally, more on the right side CVS: S1-S2 positive, no murmurs or gallops Abdomen: Soft, nontender, nondistended, positive bowel sounds x4 Extremities: +2 pulses bilaterally radialis/ dorsalis pedis, no cyanosis, no edema Neuro: Awake alert oriented x3 Psych: Normal mood and affect G/U: No [place] Skin: no rashes, warm and dry Lymphatic: no cervical or axillary lymphadenopathy Results & Data Results & Data Vital Signs (Past 12 Hours) Vital Signs Temp Pulse Pulse Resp BP Pulse Ox O2 Del Method 02/05/24 07:52 Nasal Cannula 02/05/24 07:37 36.9 C 60 19 148/72 H 93 Nasal Cannula 02/05/24 03:50 36.7 C 53 L 18 128/78 95 Nasal Cannula 02/04/24 23:09 55 L 02/04/24 22:23 36.6 C 56 L 18 153/70 H 97 Nasal Cannula O2 Flow Rate 02/05/24 07:52 02/05/24 07:37 8.0 02/05/24 03:50 8.0 02/04/24 23:09 02/04/24 22:23 8.0 PG Care Time/CCT Total # of Minutes Spent Total Time Spent with Patient: Total time spent is greater than 50% in coordination of care (as documented) at patient's floor/unit and/or counseling patient: Coding Level of Care Code 54066 SUB INP/OBS CARE 2/35MIN Diagnoses SOB (shortness of breath) R06.02 Necrotizing pneumonia J85.0 Uncomplicated asthma, unspecified asthma severity, unspecified whether persistent J45.901 Asthma severity: mild Asthma persistence: unspecified Asthma complication type: with acute exacerbation Pneumothorax J93.9 Ex-smoker Z87.891
--- NOTE | 2024-02-05 12:20 | XRay Report ---
XR chest 1V portable CLINICAL HISTORY: s/p waterseal COMPARISON STUDY: Chest radiograph February 05, 2024. FINDINGS: Right basilar pleural catheter is unchanged in position. There is a trace right apical pneu mothorax. Small left and trace right pleural effusions are noted with bibasilar opacities. Cardiomedi astinal silhouette is stable. Pulmonary vascular congestion is noted. IMPRESSION: 1. Right basilar pleural catheter in place. Trace right apical pneumothorax. 2. Bibasilar opacities with small left and trace right pleural effusions. 3. Pulmonary vascular congestion. ACT 112: Negative or not required by law. Electronically signed by: Eloy Mora M.D. 02/05/2024 12:19 PM
--- NOTE | 2024-02-06 06:47 | Hospitalist Progress Note ---
Date of Service February 06, 2024 Assessment & Plan (1) Pneumothorax: (2) Hypoxia: (3) Necrotizing pneumonia: (4) Ex-smoker: (5) SOB (shortness of breath): (6) Asthma: (7) CAD (coronary artery disease): Plan Pt is a 68 yo M w/ a PMHx of CAD without stent placement or anginal symptoms, asthma on Singulair and albuterol as needed, aortic valve sclerosis, anxiety, and BPH who presents on 02/01 with approximately 2 weeks of shortness of breath, cough, and difficulty breathing found to have necrotizing pneumonia which was then complicated with pneumothorax, here for further management. Will transition from IV to oral ABs today for 4 week AB course. Plan for repeat CT in 6-8 weeks. Continue to wean O2 as tolerated. #Necrotizing pneumonia - 2 weeks of sx, had some transient improvement with steroids followed by worsening symptoms days later - CTA on admission; no PE, +RML necrotizing PNA - initially on unasyn/Vancomycin/doxy ordered initially ordered but changed, now on amp + doxy, initially on vanc as well but dropped as MRSA nare neg - Patient will need repeat CT in 6 to 8 weeks and if not improving/resolving will need followup bronchoscopy to r/o malignancy - Sputum culture; wnl, blood culture; neg 48 hrs, MRSA nare; neg - continue to wean O2 as tolerated - continue IV AB coverage with amp + doxy while chest tube in place, was removed 02/05 so transitioned to oral ABs #Pneumothorax - patient reported pleuritic chest pain on r. side that radiated to his back and was needing 35 L, 80% O2 to maintain his O2 sats at 90% with more relief when sitting up and leaning forward - Repeat CXR 02/03/24 revealed interval change in patient's lungs with r. pneumothorax noted on exam --> chest tube placed by contracts intern, patient now stable - Repeat CXR 02/04/24 did not reveal any change in size of right-sided p neumothorax - Patient ex-smoker, Dx w/ asthma and states that father had a pneumothorax during case of pneumonia years ago - Patient has no other known risk factors including: current smoking, COPD, t uberculosis infxn, sarcoidosis, malignancy, pulmonary fibrosis, not of unusual thin and tall built - presentation and symptoms consistent w/ secondary pneumothorax, - pulm consulted; chest tube placed 02/02, removed 02/05 #Asthma, mild, Patient treated for potential asthma exacerbation/bronchitis 1 week ago without improvement, suspect symptoms were due to pneumonia as above Continue Singulair, albuterol as needed, - pt was on IV methylprednisolone 40 mg daily here for 2 days, discontinued 02/04 #CAD (coronary artery disease) With history of CAD and mild residual disease, patient denies any chest pressure/anginal symptoms in the preceding few months or prior to admission Continue aspirin 81 mg daily and atorvastatin. Patient reports he is intermittently compliant with these, encouraged to continue taking this for prevention Troponin is normal upon admission and normal the following morning during chest pain No acute ischemic EKG, NSR, no acute ischemic changes upon admission; 1st repeat EKG following morning also NSR, no ischemic changes; 2nd repeat EKG with noticeable artifacts due to patient's profuse sweating, inability to secure leads on chest well but no acute ischemic changes; troponins also have all been below threshold of concern Patient with reported BP of 182/93, no headache/vision change and coughing d uring cycling. Blood pressure at rest 140s, additional antihypertensive treatment not indicated at time of admitting assessment #Dyslipidemia continue home Atorvastatin DVT prophylaxis: Lovenox Admission and Anticipated Discharge Date Admission Date: February 02, 2024 Supervising Physician Co-Signing Physician Notes Attending Physician Supervision Note: I independently interviewed and examined the patient and verified the boyd history and physical, reviewed labs and image studies and agree with findings and care plan noted above. Necrotizing pneumonia - RML cavitary lesion. Neg sputum and blood cx. Received IV ampicillin and doxycycline. -legionella test pending. -transition to augmentin (02/05) for total of 4 wks -repeat CT in 6-8wks - per Pulm Spontaneous Right Pneumothorax - later in the hospital stay. s/p Pigtail catheter placement - removed 02/06/24. complete resolution on CXR. Acute respiratory failure - on admissoin and now with persistent hypoxia needing 9-10L of O2. Likely from pulmonary process. BNP normal. Echo pending. -will discuss with respiratory on discharge option for this level of O2 needs at home. CXR findings of pulmonary vascular congestion and trace to small bilateral pleural effusion - s/p lasix dose 02/03. BNP normal. Echo pending. follow. History of tobacco abuse - -No known diagnosis of COPD. to have outpatient PFT. -d/ekta steroids. Subjective Pt is a 68 yo M w/ a PMHx of CAD without stent placement or anginal symptoms, asthma on Singulair and albuterol as needed, aortic valve sclerosis, anxiety, and BPH who presents on 02/01 with approximately 2 weeks of shortness of breath, cough, and difficulty breathing found to have necrotizing pneumonia which was then complicated with pneumothorax, here for further management. Today, pt states he is doing about the same as yesterday. He is occasionally coughing and is able to bring up some sputum. Still having some chest wall discomfort where the chest tube is and anterior middle to upper chest areas. He states otherwise he is just getting restless and would like to be able to walk around and take a shower soon. No further questions or complaints at this point in time. Review of Systems Review of Systems: Per HPI. Physical Exam Physical Exam: General:Alert and oriented, no acute distress, HEENT: Normocephalic, moist oral mucosa, Cardio: Regular rate and rhythm, no murmur, Chest: chest tube in place on R lateral chest wall Resp:Lungs clear to auscultation b/l but lung sounds somewhat decreased on the R side compared to left, GI: Soft and nontender, nondistended, bowel sounds active Skin: Warm, pink, dry, Results & Data Results & Data Vital Signs (Past 12 Hours) Vital Signs Temp Pulse Pulse Resp BP Pulse Ox O2 Del Method 02/06/24 02:37 36.5 C 58 L 18 149/86 H 99 Nasal Cannula 02/05/24 23:56 55 L 02/05/24 22:59 36.7 C 56 L 18 134/70 96 Nasal Cannula 02/05/24 20:39 Nasal Cannula 02/05/24 19:13 36.6 C 64 18 140/70 94 Nasal Cannula O2 Flow Rate 02/06/24 02:37 8 02/05/24 23:56 02/05/24 22:59 02/05/24 20:39 8 02/05/24 19:13 Resident Activity Tracking Resident Involvement: Resident Care Provided Care Provided: Adult Hospital Medicine (6) Asthma Asthma complication type: with acute exacerbation Asthma persistence: unspecified Asthma severity: mild Qualified Code(s): J45.901 - Unspecified asthma with (acute) exacerbation (7) CAD (coronary artery disease) Associated angina: without angina Coronary Disease-Associated Artery/Lesion type: unspecified vessel or lesion type [place] vs. transplanted heart: unspecified whether [place] or transplanted heart Qualified Code(s): I25.10 - Atherosclerotic heart disease of [place] coronary artery without angina pectoris
--- NOTE | 2024-02-06 07:02 | Electrocardiogram Report ---
Test Reason : Blood Pressure : / mmHG Vent. Rate : 070 BPM Atrial Rate : 070 BPM P-R Int : 158 ms QRS Dur : 088 ms QT Int : 394 ms P-R-T Axes : 064 046 063 degrees QTc Int : 425 ms Normal sinus rhythm Normal ECG When compared with ECG of 02-FEB-2024 07:19, No significant change was found Confirmed by Fco Valenzuela ([id number]) on 02/06/2024 7:02:12 AM Referred By: REFERRED SELF Confirmed By:Fco Valenzuela
--- NOTE | 2024-02-06 07:10 | Electrocardiogram Report ---
Test Reason : Blood Pressure : / mmHG Vent. Rate : 065 BPM Atrial Rate : 063 BPM P-R Int : 120 ms QRS Dur : 070 ms QT Int : 376 ms P-R-T Axes : 079 048 -28 degrees QTc Int : 391 ms Poor data quality, interpretation may be adversely affected Sinus rhythm Normal ECG When compared with ECG of 03-FEB-2024 09:36, (unconfirmed) No significant change Confirmed by Fco Valenzuela ([id number]) on 02/06/2024 7:10:13 AM Referred By: REFERRED SELF Confirmed By:Fco Valenzuela
--- NOTE | 2024-02-06 07:11 | Electrocardiogram Report ---
Test Reason : Blood Pressure : / mmHG Vent. Rate : 071 BPM Atrial Rate : 071 BPM P-R Int : 000 ms QRS Dur : 070 ms QT Int : 374 ms P-R-T Axes : 000 048 007 degrees QTc Int : 406 ms Poor data quality, interpretation may be adversely affected Sinus rhythm Probable Normal ECG When compared with ECG of 03-FEB-2024 13:31, (unconfirmed) No significant change Confirmed by Fco Valenzuela ([id number]) on 02/06/2024 7:11:13 AM Referred By: REFERRED SELF Confirmed By:Fco Valenzuela
--- NOTE | 2024-02-06 07:46 | XRay Report ---
XR chest 1V portable CLINICAL HISTORY: f/u TECHNIQUE: Single frontal radiograph of the chest was obtained. Comparison: Comparison is made to chest radiograph 02/05/2024 FINDINGS: The cardiomediastinal silhouette is normal. Left lower lung airspace opacity is seen. There is a sma ll left pleural effusion. Right chest tube is seen without pneumothorax. IMPRESSION: 1. Small left pleural effusion, increased from prior exam, with underlying airspace opacity likely r epresenting atelectasis. Superimposed aspiration/pneumonia cannot be excluded. 2. Right chest tube without significant effusion. Previously noted pneumothorax is no longer well se en. ACT 112: Negative or not required by law. Electronically signed by: Ashkan Carney M.D. 02/06/2024 7:43 AM
[2024-02-06 08:28] LABS: Basophils # (auto) 0.03 K/uL (0.00-0.20); Basophils % (auto) 0.4 %; Eosinophils # (auto) 0.18 K/uL (0.00-0.50); Eosinophils % (auto) 2.5 %; Hematocrit (blood only) 47.2 % (42.0-52.0); Hemoglobin 15.5 g/dl (14.0-18.0); Immature Granulocytes # (auto) 0.03 K/uL (0.01-0.20); Immature Granulocytes % (auto) 0.4 %; Lymphocytes # (auto) 2.06 K/uL (1.20-3.40); Lymphocytes % (auto) 28.7 %; Mean Corpuscular Hemoglobin 30.6 pg (25.0-34.0); Mean Corpuscular Hgb Conc 32.8 g/dL (32.0-36.0); Mean Corpuscular Volume 93.1 fL (80.0-100.0); Mean Platelet Volume 8.6 fL (9.4-12.4); Monocytes # (auto) 0.27 K/uL (0.11-0.59); Monocytes % (auto) 3.8 %; Neutrophils % (auto) 64.2 %; Platelet Count 229 K/uL (130-400); RDW Coefficient of Variation 13.2 % (11.5-14.5); RDW Standard Deviation 44.7 fL (36.4-46.3); Red Blood Count 5.07 M/uL (4.70-6.10); White Blood Count 7.17 K/ul (4.8-10.8)
[2024-02-06 09:20] LABS: BUN Creatinine Ratio 28.4 (10-20); Calcium 9.4 mg/dl (8.6-10.3); Creatinine Clr Calc Pharmacy 93.1 ml/min; Est GFR (African American) 104.4 ml/min; Potassium 3.8 mmol/L (3.5-5.1)
--- NOTE | 2024-02-06 09:32 | Procedure Note ---
Procedure Note Date of Service February 06, 2024 Note Right pigtail catheter dressing taken down. Chest tube removed upon exhalation. Occlusive dressing placed over the site. Chest tube intact. No complications. Coding CPT Codes Pulmonary/Thoracic - Pulmonary and Thoracic: 46543 Remove lung catheter ([id number]) [facility] [place] ([place]) Pulmonary/Thoracic Procedure 1: Pulmonary and Thoracic: 99564 Remove lung catheter
--- NOTE | 2024-02-06 09:58 | Pulmonology Progress Note ---
Date of Service February 06, 2024 Assessment & Plan (1) SOB (shortness of breath): (2) Necrotizing pneumonia: (3) Asthma: Asthma severity: mild Asthma persistence: unspecified Asthma complication type: with acute exacerbation Qualified Code(s): J45.901 - Unspecified asthma with (acute) exacerbation (4) Pneumothorax: (5) Ex-smoker: Plan 68-year-old male with a history of former tobacco abuse, anxiety and aortic valve sclerosis who presented to the hospital with community-acquired pneumonia. Found to have right middle lobe cavitary lesion on CT chest. Also found to have a spontaneous pneumothorax later this hospitalization status post right- sided pigtail catheter placement with a 14 [place] tube. Chest tube removed at bedside. Ptx resolved. Will check echo and BNP to eval for CHF. Pulmonary will continue to follow. Thank you for the consult. Admission and Anticipated Discharge Date Admission Date: February 02, 2024 Subjective Symptoms unchanged. Continues with dyspnea on minimal exertion. Review of Systems Review of Systems: All systems reviewed & are unremarkable except as noted in HPI & below Physical Exam Physical Exam: Constitutional: No respiratory distress HEENT: EOMI, PERRLA, no subcu emphysema Respiratory system: Decreased air entry on the right side, no wheeze, no rhonchi, positive crackles bilaterally, more on the right side CVS: S1-S2 positive, no murmurs or gallops Abdomen: Soft, nontender, nondistended, positive bowel sounds x4 Extremities: +2 pulses bilaterally radialis/ dorsalis pedis, no cyanosis, no edema Neuro: Awake alert oriented x3 Psych: Normal mood and affect G/U: No [place] Skin: no rashes, warm and dry Lymphatic: no cervical or axillary lymphadenopathy Results & Data Results & Data Vital Signs (Past 12 Hours) Vital Signs Temp Pulse Pulse Resp BP Pulse Ox O2 Del Method 02/06/24 07:37 36.7 C 59 L 20 152/78 H 90 Nasal Cannula 02/06/24 07:22 53 L 02/06/24 02:37 36.5 C 58 L 18 149/86 H 99 Nasal Cannula 02/05/24 23:56 55 L 02/05/24 22:59 36.7 C 56 L 18 134/70 96 Nasal Cannula O2 Flow Rate 02/06/24 07:37 9.0 02/06/24 07:22 02/06/24 02:37 8 04/01/24 23:56 02/05/24 22:59 PG Care Time/CCT Total # of Minutes Spent Total Time Spent with Patient: Total time spent is greater than 50% in coordination of care (as documented) at patient's floor/unit and/or counseling patient: Coding Level of Care Code 60040 SUB INP/OBS CARE 2/35MIN Diagnoses SOB (shortness of breath) R06.02 Necrotizing pneumonia J85.0 Uncomplicated asthma, unspecified asthma severity, unspecified whether persistent J45.901 Asthma severity: mild Asthma persistence: unspecified Asthma complication type: with acute exacerbation Pneumothorax J93.9 Ex-smoker Z87.891
--- NOTE | 2024-02-06 13:03 | XRay Report ---
XR chest 1V portable HISTORY: 68 years-old Male post chest tube removal status post removal of a right-sided chest tube COMPARISON: Chest radiograph of same day at 6:51 AM TECHNIQUE: AP view of the chest FINDINGS: Status post removal of the right-sided pleural catheter. No definite residual pneumothorax identified . Cardiomediastinal and hilar silhouettes are unchanged bibasilar opacities are again noted along wit h unchanged layering pleural effusions. Pulmonary vascular congestion. Bones appear grossly intact. IMPRESSION: 1. Status post removal of the right-sided pleural catheter. 2. No pneumothorax. 3. Unchanged pleural effusions with bibasilar densities. ACT 112: Negative or not required by law. The above report was generated using voice recognition software. It may contain grammatical, syntax o r spelling errors. Electronically signed by: Kyler Simpson M.D. 02/06/2024 1:00 PM
[2024-02-06] MEDS: AMOXICILLIN/CLAVULANATE 875 MG TAB PO SCH (16:45)
--- NOTE | 2024-02-07 06:56 | Hospitalist Progress Note ---
Date of Service February 07, 2024 Assessment & Plan (1) Pneumothorax: (2) Hypoxia: (3) Necrotizing pneumonia: (4) Ex-smoker: (5) SOB (shortness of breath): (6) Asthma: (7) CAD (coronary artery disease): Plan Pt is a 68 yo M w/ a PMHx of CAD without stent placement or anginal symptoms, asthma on Singulair and albuterol as needed, aortic valve sclerosis, anxiety, and BPH who presents on 02/01 with approximately 2 weeks of shortness of breath, cough, and difficulty breathing found to have necrotizing pneumonia which was then complicated with pneumothorax, here for further management. Continue augmentin for 4 weeks total AB coverage. Plan for repeat CT in 6-8 weeks. Continue to wean O2 as tolerated. Nasal sprays for congestion started today. #Necrotizing pneumonia - 2 weeks of sx, had some transient improvement with steroids followed by worse [place] symptoms days later - CTA on admission; no PE, +RML necrotizing PNA - initially on unasyn/Vancomycin/doxy ordered initially ordered but changed, now on amp + doxy, initially on vanc as well but dropped as MRSA nare neg - Patient will need repeat CT in 6 to 8 weeks and if not improving/resolving will need followup bronchoscopy to r/o malignancy - Sputum culture; wnl, blood culture; neg 48 hrs, MRSA nare; neg - continue to wean O2 as tolerated - continue IV AB coverage with amp + doxy while chest tube in place, was removed 02/05 so transitioned to oral augmentin 02/05 #Pneumothorax - patient reported pleuritic chest pain on r. side that radiated to his back and was needing 35 L, 80% O2 to maintain his O2 sats at 90% with more relief when sitting up and leaning forward - Repeat CXR 02/03/24 revealed interval change in patient's lungs with r. pneumothorax noted on exam --> chest tube placed by manager business continuity, patient now stable - Repeat CXR 02/04/24 did not reveal any change in size of right-sided pneumothorax - Patient ex-smoker, Dx w/ asthma and states that father had a pneumothorax during case of pneumonia years ago - Patient has no other known risk factors including: current smoking, COPD, tuberculosis infxn, sarcoidosis, malignancy, pulmonary fibrosis, not of unusual thin and tall built - presentation and symptoms consistent w/ secondary pneumothorax, - pulm consulted; chest tube placed 02/02, removed 02/05; appreciate further recs #Asthma, mild, Patient treated for potential asthma exacerbation/bronchitis 1 week ago without improvement, suspect symptoms were due to pneumonia as above Continue Singulair, albuterol as needed, - pt was on IV methylprednisolone 40 mg daily here for 2 days, discontinued 02/04 #CAD (coronary artery disease) With history of CAD and mild residual disease, patient denies any chest pressure/anginal symptoms in the preceding few months or prior to admission Continue aspirin 81 mg daily and atorvastatin. Patient reports he is intermittently compliant with these, encouraged to continue taking this for prevention Troponin is normal upon admission and normal the following morning during chest pain No acute ischemic EKG, NSR, no acute ischemic changes upon admission; 1st repeat EKG following morning also NSR, no ischemic changes; 2nd repeat EKG with noticeable artifacts due to patient's profuse sweating, inability to secure leads on chest well but no acute ischemic changes; troponins also have all been below threshold of concern Patient with reported BP of 182/93, no headache/vision change and coughing during cycling. Blood pressure at rest 140s, additional antihypertensive treatment not indicated at time of admitting assessment - echo 02/05; 60-65% without wall abnormalities, BNP 33 #Dyslipidemia continue home Atorvastatin DVT prophylaxis: Lovenox Admission and Anticipated Discharge Date Admission Date: February 02, 2024 Supervising Physician Co-Signing Physician Notes Attending Physician Supervision Note: I independently interviewed and examined the patient and verified the boyd history and physical, reviewed labs and image studies and agree with findings and care plan noted above. Necrotizing pneumonia - RML cavitary lesion. Neg sputum and blood cx. Received IV ampicillin and doxycycline. -legionella test pending. -transition to augmentin (02/05) for total of 4 wks -repeat CT in 6-8wks - per Pulm Spontaneous Right Pneumothorax - later in the hospital stay. s/p Pigtail catheter placement - removed 02/06/24. complete resolution on CXR. Acute respiratory failure - on admissoin and now with persistent hypoxia needing 9-11L of O2. -Multifactorial - pneumonia, pleural effusion and related atelectasis/VQ shun t. -Echo with mild LVH. Normal BNP. s/p lasix dose on 02/03 with no improvement. -pulmonary recommending IR directed thoracentesis. -If hypoxia persists - to re-image. History of tobacco abuse - -No known diagnosis of COPD. to have outpatient PFT. -d/ekta steroids. Subjective Pt is a 68 yo M w/ a PMHx of CAD without stent placement or anginal symptoms, asthma on Singulair and albuterol as needed, aortic valve sclerosis, anxiety, and BPH who presents on 02/01 with approximately 2 weeks of shortness of breath, cough, and difficulty breathing found to have necrotizing pneumonia which was then complicated with pneumothorax, here for further management. Today, pt states he is doing well. No real questions or complaints at this point, just continues to be restless with not being able to walk around freely. Otherwise, no better or worse than yesterday per pt. He does note he feels his nasal passages are a little bit irritated and did have a bloody nose last night. He states he has tried flonase in the past for some nasal congestion and got nose bleeds with that. Has never tried a saline nasal spray or other sprays before. Review of Systems Review of Systems: Per HPI. Physical Exam Physical Exam: General:Alert and oriented, no acute distress, HEENT: Normocephalic, moist oral mucosa, Cardio: Regular rate and rhythm, no murmur, Chest: chest tube in place on R lateral chest wall Resp:Lungs clear to auscultation b/l without wheezes or rhonchi GI: Soft and nontender, nondistended, bowel sounds active Skin: Warm, pink, dry, Results & Data Results & Data Vital Signs (Past 12 Hours) Vital Signs Temp Pulse Pulse Resp BP Pulse Ox O2 Del Method 02/07/24 03:04 36.6 C 61 18 153/88 H 94 Nasal Cannula 02/07/24 01:23 56 L 02/06/24 22:52 36.8 C 55 L 18 148/75 H 95 Nasal Cannula 02/06/24 20:43 Nasal Cannula 02/06/24 19:20 36.7 C 65 18 136/78 93 Nasal Cannula O2 Flow Rate 02/07/24 03:04 11 02/07/24 01:23 02/06/24 22:52 02/06/24 20:43 11 02/06/24 19:20 11 Resident Activity Tracking Resident Involvement: Resident Care Provided Care Provided: Adult Hospital Medicine (6) Asthma Asthma complication type: with acute exacerbation Asthma persistence: unspecified Asthma severity: mild Qualified Code(s): J45.901 - Unspecified asthma with (acute) exacerbation (7) CAD (coronary artery disease) Associated angina: without angina Coronary Disease-Associated Artery/Lesion type: unspecified vessel or lesion type [place] vs. transplanted heart: unspecified whether [place] or transplanted heart Qualified Code(s): I25.10 - Atherosclerotic heart disease of [place] coronary artery without angina pectoris
[2024-02-07 07:36] LABS: Basophils # (auto) 0.06 K/uL (0.00-0.20); Basophils % (auto) 0.8 %; Eosinophils # (auto) 0.82 K/uL (0.00-0.50); Eosinophils % (auto) 10.9 %; Hematocrit (blood only) 46.5 % (42.0-52.0); Hemoglobin 15.5 g/dl (14.0-18.0); Immature Granulocytes # (auto) 0.03 K/uL (0.01-0.20); Immature Granulocytes % (auto) 0.4 %; Mean Corpuscular Hemoglobin 30.4 pg (25.0-34.0); Mean Corpuscular Hgb Conc 33.3 g/dL (32.0-36.0); Mean Corpuscular Volume 91.2 fL (80.0-100.0); Mean Platelet Volume 8.6 fL (9.4-12.4); Monocytes # (auto) 0.68 K/uL (0.11-0.59); Monocytes % (auto) 9.1 %; Neutrophils % (auto) 58.8 %; Platelet Count 244 K/uL (130-400); RDW Coefficient of Variation 12.9 % (11.5-14.5); RDW Standard Deviation 43.3 fL (36.4-46.3); White Blood Count 7.49 K/ul (4.8-10.8)
--- NOTE | 2024-02-07 07:46 | XRay Report ---
XR chest 1V portable HISTORY: 68 years-old Male f/u acute shortness of breath COMPARISON: Chest radiograph of same day at 12:35 PM TECHNIQUE: AP view of the chest FINDINGS: Cardiomediastinal and hilar silhouettes are unchanged. No pneumothorax. Pulmonary vascular congestion . Small pleural effusions with bibasilar opacities redemonstrated. Bones appear grossly intact. IMPRESSION: 1. Cardiomegaly with pulmonary vascular congestion. 2. Persistent pleural effusions with bibasilar opacities. 3. No pneumothorax identified. ACT 112: Negative or not required by law. The above report was generated using voice recognition software. It may contain grammatical, syntax o r spelling errors. Electronically signed by: Kyler Simpson M.D. 02/07/2024 7:44 AM
[2024-02-07 08:27] LABS: BUN Creatinine Ratio 32.1 (10-20); Calcium 9.2 mg/dl (8.6-10.3); Creatinine Clr Calc Pharmacy 96.7 ml/min; Est GFR (Non-African American) 91.5 ml/min; Potassium 3.8 mmol/L (3.5-5.1)
[2024-02-07] MEDS: AZELASTINE HCL 0.1% NASAL 200 SPRAYS/27,400 MCG BTL SCH (10:13)
[2024-02-07] MEDS: FLUTICASONE PROPIONATE NA SPR 16 GM BTL SCH (10:13)
[2024-02-07] MEDS ORDERED: SODIUM CHLORIDE 0.65% NA SOLN 45 ML (OCEAN) PRN (10:16)
--- NOTE | 2024-02-07 12:15 | Pulmonology Progress Note ---
Date of Service February 07, 2024 Assessment & Plan (1) SOB (shortness of breath): (2) Necrotizing pneumonia: (3) Asthma: Asthma severity: mild Asthma persistence: unspecified Asthma complication type: with acute exacerbation Qualified Code(s): J45.901 - Unspecified asthma with (acute) exacerbation (4) Pneumothorax: (5) Ex-smoker: Plan 68-year-old male with a history of former tobacco abuse, anxiety and aortic valve sclerosis who presented to the hospital with community-acquired pneumonia. Found to have right middle lobe cavitary lesion on CT chest. Also found to have a spontaneous pneumothorax later this hospitalization status post right- sided pigtail catheter placement with a 14 [place] tube. Chest tube removed 02/06/2024. Right-sided pneumothorax resolved. Patient appears to have left-sided pleural effusion with compressive atelectasis on chest x-ray today. Will ask radiology to perform a thoracentesis for diagnostic and therapeutic purposes. Echo reviewed from yesterday without evidence of RV or LV dysfunction. Unfortunately bubble study was not performed. BNP was unremarkable. Suspect hypoxia is from VQ mismatch related to atelectasis and effusion. Will have low threshold for repeating CT chest to follow-up on the right lower lobe pneumonia and other parenchymal changes. Continue total course of 4 weeks of antibiotics for right lower lobe necrotic pneumonia. Pulmonary will continue to follow. Thank you for the consult. Admission and Anticipated Discharge Date Admission Date: February 02, 2024 Subjective Patient feels similar to yesterday. Continues to have shortness of breath with mild exertion. Remains on 11 L/min nasal cannula. Chest tube on the right removed yesterday. Denies any significant pain or drainage. Review of Systems Review of Systems: All systems reviewed & are unremarkable except as noted in HPI & below Physical Exam Physical Exam: Constitutional: No respiratory distress HEENT: EOMI, PERRLA, no subcu emphysema Respiratory system: Clear to auscultation on the right. Mild crackles in the left lower lobe. Chest tube insertion site appears clean dry and intact. Bandage noted. CVS: S1-S2 positive, no murmurs or gallops Abdomen: Soft, nontender, nondistended, positive bowel sounds x4 Extremities: +2 pulses bilaterally radialis/ dorsalis pedis, no cyanosis, no edema Neuro: Awake alert oriented x3 Psych: Normal mood and affect G/U: No [place] Skin: no rashes, warm and dry Lymphatic: no cervical or axillary lymphadenopathy Results & Data Results & Data Vital Signs (Past 12 Hours) Vital Signs Temp Pulse Pulse Resp BP Pulse Ox O2 Del Method 02/07/24 11:42 37.1 C 78 18 124/73 91 High Flow Nasal Cannula 02/07/24 09:00 High Flow Nasal Cannula 02/07/24 08:05 36.6 C 69 19 145/58 H 92 High Flow Nasal Cannula 02/07/24 07:00 55 L 02/07/24 03:04 36.6 C 61 18 153/88 H 94 Nasal Cannula 02/07/24 01:23 56 L O2 Flow Rate 02/07/24 11:42 11.0 02/07/24 09:00 11 02/07/24 08:05 11.0 02/07/24 07:00 02/07/24 03:04 11 02/07/24 01:23 PG Care Time/CCT Total # of Minutes Spent Total Time Spent with Patient: Total time spent is greater than 50% in coordination of care (as documented) at patient's floor/unit and/or counseling patient: Coding Level of Care Code 97282 SUB INP/OBS CARE 2/35MIN Diagnoses SOB (shortness of breath) R06.02 Necrotizing pneumonia J85.0 Uncomplicated asthma, unspecified asthma severity, unspecified whether persistent J45.901 Asthma severity: mild Asthma persistence: unspecified Asthma complication type: with acute exacerbation Pneumothorax J93.9 Ex-smoker Z87.891
--- NOTE | 2024-02-07 14:18 | Ultrasound Report ---
LIMITED LEFT CHEST ULTRASOUND INDICATION: Requested thoracentesis FINDINGS: Real time ultrasound imaging of the left posterior chest demonstrates a scant left pleural effusion with consolidated/atelectatic lung. Ultrasound images were obtained. Estimated pleural effus ion is less than 100 mL. The referring physician was notified of the above findings and the procedure was canceled. IMPRESSION: Scant left pleural effusion with consolidated/atelectatic lung as above. Performed, dictated, and signed by Santhosh Gilliland PA-C; to be co-signed by Dr. Kyler Simpson. Electronically signed by: Kyler Simpson M.D. 02/07/2024 2:58 PM
--- NOTE | 2024-02-08 06:56 | Hospitalist Progress Note ---
Date of Service February 08, 2024 Assessment & Plan (1) Pneumothorax: (2) Hypoxia: (3) Necrotizing pneumonia: (4) Ex-smoker: (5) SOB (shortness of breath): (6) Asthma: (7) CAD (coronary artery disease): Plan Pt is a 68 yo M w/ a PMHx of CAD without stent placement or anginal symptoms, asthma on Singulair and albuterol as needed, aortic valve sclerosis, anxiety, and BPH who presents on 02/01 with approximately 2 weeks of shortness of breath, cough, and difficulty breathing found to have necrotizing pneumonia which was then complicated with pneumothorax, here for further management. Continue to wean O2 as tolerated. Continue augmentin for 4 weeks total AB coverage. Plan for repeat CT in 6-8 weeks. If resp status worsens can consider repeat CT this admission as well. #Necrotizing pneumonia - 2 weeks of sx, had some transient improvement with steroids followed by worsening symptoms days later - CTA on admission; no PE, +RML necrotizing PNA - initially on unasyn/Vancomycin/doxy ordered initially ordered but changed, now on amp + doxy, initially on vanc as well but dropped as MRSA nare neg - Patient will need repeat CT in 6 to 8 weeks and if not improving/resolving will need followup bronchoscopy to r/o malignancy - Sputum culture; wnl, blood culture; neg 48 hrs, MRSA nare; neg - continue to wean O2 as tolerated - continue IV AB coverage with amp + doxy while chest tube in place, was removed 02/05 so transitioned to oral augmentin 02/05 #Pneumothorax - patient reported pleuritic chest pain on r. side that radiated to his back and was needing 35 L, 80% O2 to maintain his O2 sats at 90% with more relief when sitting up and leaning forward - Repeat CXR 02/03/24 revealed interval change in patient's lungs with r. pneumothorax noted on exam --> chest tube placed by insulation professional, patient now stable - Repeat CXR 02/04/24 did not reveal any change in size of right-sided pneumothorax - Patient ex-smoker, Dx w/ asthma and states that father had a pneumothorax during case of pneumonia years ago - Patient has no other known risk factors including: current smoking, COPD, tuberculosis infxn, sarcoidosis, malignancy, pulmonary fibrosis, not of unusual thin and tall built - presentation and symptoms consistent w/ secondary pneumothorax, - pulm consulted; chest tube placed 02/02, removed 02/05; appreciate further recs #Asthma, mild, Patient treated for potential asthma exacerbation/bronchitis 1 week ago without improvement, suspect symptoms were due to pneumonia as above Continue Singulair, albuterol as needed, - pt was on IV methylprednisolone 40 mg daily here for 2 days, discontinued 02/04 #CAD (coronary artery disease) With history of CAD and mild residual disease, patient denies any chest pressure/anginal symptoms in the preceding few months or prior to admission Continue aspirin 81 mg daily and atorvastatin. Patient reports he is intermittently compliant with these, encouraged to continue taking this for prevention Troponin is normal upon admission and normal the following morning during chest pain No acute ischemic EKG, NSR, no acute ischemic changes upon admission; 1st repeat EKG following morning also NSR, no ischemic changes; 2nd repeat EKG with noticeable artifacts due to patient's profuse sweating, inability to secure leads on chest well but no acute ischemic changes; troponins also have all been below threshold of concern Patient with reported BP of 182/93, no headache/vision change and coughing during cycling. Blood pressure at rest 140s, additional antihypertensive treatment not indicated at time of admitting assessment - echo 02/05; 60-65% without wall abnormalities, BNP 33 #Dyslipidemia continue home Atorvastatin DVT prophylaxis: Lovenox Admission and Anticipated Discharge Date Admission Date: February 02, 2024 Supervising Physician Co-Signing Physician Notes Attending Physician Supervision Note: I independently interviewed and examined the patient and verified the boyd history and physical, reviewed labs and image studies and agree with findings and care plan noted above. Diarrhea - checked for c diff - negative. add probiotics. Necrotizing pneumonia - RML cavitary lesion. Neg sputum and blood cx. Received IV ampicillin and doxycycline. -legionella test pending. -transition to augmentin (02/05) for total of 4 wks -repeat CT in 6-8wks - per Pulm Spontaneous Right Pneumothorax - later in the hospital stay. s/p Pigtail catheter placement - removed 02/06/24. complete resolution on CXR. Acute respiratory failure - on admissoin and now with persistent hypoxia needing 9-11L of O2. -Multifactorial - pneumonia and related atelectasis/VQ shunt. Pleural effusion is resolved. -Echo with mild LVH. Normal BNP. s/p lasix dose on 02/03 with no improvement. -Hypoxia improving. History of tobacco abuse - -No known diagnosis of COPD. to have outpatient PFT. -d/ekta steroids. Lovenox. Anticipate d/c home soon if hypoxia continues to improve Subjective Pt is a 68 yo M w/ a PMHx of CAD without stent placement or anginal symptoms, asthma on Singulair and albuterol as needed, aortic valve sclerosis, anxiety, and BPH who presents on 02/01 with approximately 2 weeks of shortness of breath, cough, and difficulty breathing found to have necrotizing pneumonia which was then complicated with pneumothorax, here for further management. Today, pt states he had a bit of a rough night. He states that he had an episode of copious watery nonbloody diarrhea last night and when he went up to go to the bathroom he had significant anxiety and his oxygen dropped. He is feeling better this morning, no abdominal pain but he just notes some grumbling in his stomach this morning. No nausea or vomiting. No chest pain or SOB. No other questions or complaints at this time. Review of Systems Review of Systems: Per HPI. Physical Exam Physical Exam: General:Alert and oriented, no acute distress, HEENT: Normocephalic, moist oral mucosa, Cardio: Regular rate and rhythm, no murmur, Resp:Lungs clear to auscultation b/l without wheezes or rhonchi GI: Soft and nontender, nondistended, bowel sounds active Skin: Warm, pink, dry, Results & Data Results & Data Vital Signs (Past 12 Hours) Vital Signs Temp Pulse Pulse Resp BP BP Pulse Ox 02/08/24 02:40 36.7 C 60 18 129/75 94 02/07/24 22:56 64 02/07/24 22:42 37.0 C 66 18 146/75 H 95 02/07/24 20:40 02/07/24 20:27 02/07/24 19:46 36.7 C 67 18 134/76 94 O2 Del Method O2 Flow Rate 02/08/24 02:40 High Flow Nasal Cannula 10 02/07/24 22:56 02/07/24 22:42 Nasal Cannula 10 02/07/24 20:40 High Flow Nasal Cannula 10 02/07/24 20:27 High Flow Nasal Cannula 10 02/07/24 19:46 Nasal Cannula 11 Resident Activity Tracking Resident Involvement: Resident Care Provided Care Provided: Adult Hospital Medicine (6) Asthma Asthma complication type: with acute exacerbation Asthma persistence: unspecified Asthma severity: mild Qualified Code(s): J45.901 - Unspecified asthma with (acute) exacerbation (7) CAD (coronary artery disease) Associated angina: without angina Coronary Disease-Associated Artery/Lesion type: unspecified vessel or lesion type [place] vs. transplanted heart: unspecified whether [place] or transplanted heart Qualified Code(s): I25.10 - Atherosclerotic heart disease of [place] coronary artery without angina pectoris
[2024-02-08 07:56] LABS: Basophils # (auto) 0.05 K/uL (0.00-0.20); Basophils % (auto) 0.6 %; Eosinophils # (auto) 0.91 K/uL (0.00-0.50); Eosinophils % (auto) 11.8 %; Hemoglobin 15.8 g/dl (14.0-18.0); Immature Granulocytes # (auto) 0.02 K/uL (0.01-0.20); Immature Granulocytes % (auto) 0.3 %; Lymphocytes # (auto) 1.39 K/uL (1.20-3.40); Mean Corpuscular Hemoglobin 30.5 pg (25.0-34.0); Mean Corpuscular Hgb Conc 33.6 g/dL (32.0-36.0); Mean Corpuscular Volume 90.7 fL (80.0-100.0); Mean Platelet Volume 8.5 fL (9.4-12.4); Monocytes # (auto) 0.55 K/uL (0.11-0.59); Monocytes % (auto) 7.1 %; Neutrophils % (auto) 62.2 %; Platelet Count 249 K/uL (130-400); RDW Standard Deviation 42.9 fL (36.4-46.3); Red Blood Count 5.18 M/uL (4.70-6.10); White Blood Count 7.72 K/ul (4.8-10.8)
[2024-02-08 08:11] LABS: Calcium 8.9 mg/dl (8.6-10.3); Creatinine Clr Calc Pharmacy 106.3 ml/min; Est GFR (African American) 110.2 ml/min; Est GFR (Non-African American) 95.1 ml/min; Potassium 3.8 mmol/L (3.5-5.1)
--- NOTE | 2024-02-08 12:09 | Pulmonology Progress Note ---
Date of Service February 08, 2024 Assessment & Plan (1) SOB (shortness of breath): (2) Necrotizing pneumonia: (3) Asthma: Asthma severity: mild Asthma persistence: unspecified Asthma complication type: with acute exacerbation Qualified Code(s): J45.901 - Unspecified asthma with (acute) exacerbation (4) Pneumothorax: (5) Ex-smoker: Plan 68-year-old male with a history of former tobacco abuse, anxiety and aortic valve sclerosis who presented to the hospital with community-acquired pneumonia. Found to have right middle lobe cavitary lesion on CT chest. Also found to have a spontaneous pneumothorax later this hospitalization status post right- sided pigtail catheter placement with a 14 [place] tube. Chest tube removed 02/06/2024. Right-sided pneumothorax resolved. Left-sided ultrasound revealed very small pleural effusion and consolidation of the left lower lobe. Patient with bilateral pneumonia. His oxygen requirements are i mproving. Continue to wean as able. Continue Augmentin as previously noted for total of 4 weeks. Recommend follow-up CT scan in 6 to 8 weeks as an outpatient. No further recommendations at this time. Please call with questions. Thank you for the consult Admission and Anticipated Discharge Date Admission Date: February 02, 2024 Subjective His hypoxemia and shortness of breath continues to improve. He is down to 5 L oxygen via nasal cannula. Review of Systems Review of Systems: All systems reviewed & are unremarkable except as noted in HPI & below Physical Exam Physical Exam: Constitutional: No respiratory distress HEENT: EOMI, PERRLA, no subcu emphysema Respiratory system: Clear to auscultation on the right. Mild crackles in the left lower lobe. Chest tube insertion site appears clean dry and intact. Bandage noted. CVS: S1-S2 positive, no murmurs or gallops Abdomen: Soft, nontender, nondistended, positive bowel sounds x4 Extremities: +2 pulses bilaterally radialis/ dorsalis pedis, no cyanosis, no edema Neuro: Awake alert oriented x3 Psych: Normal mood and affect G/U: No [place] Skin: no rashes, warm and dry Lymphatic: no cervical or axillary lymphadenopathy Results & Data Results & Data Vital Signs (Past 12 Hours) Vital Signs Temp Pulse Pulse Resp BP BP Pulse Ox 02/08/24 11:40 36.6 C 68 20 133/71 92 02/08/24 08:24 02/08/24 07:36 36.8 C 64 20 118/70 92 02/08/24 07:28 72 02/08/24 02:40 36.7 C 60 18 129/75 94 O2 Del Method O2 Flow Rate 02/08/24 11:40 Nasal Cannula 5 02/08/24 08:24 Nasal Cannula 8 02/08/24 07:36 High Flow Nasal Cannula 8 02/08/24 07:28 02/08/24 02:40 High Flow Nasal Cannula 10 PG Care Time/CCT Total # of Minutes Spent Total Time Spent with Patient: Total time spent is greater than 50% in coordination of care (as documented) at patient's floor/unit and/or counseling patient: Coding Level of Care Code 21394 SUB INP/OBS CARE 235MIN Diagnoses SOB (shortness of breath) R06.02 Necrotizing pneumonia J85.0 Uncomplicated asthma, unspecified asthma severity, unspecified whether persistent J45.901 Asthma severity: mild Asthma persistence: unspecified Asthma complication type: with acute exacerbation Pneumothorax J93.9 Ex-smoker Z87.891
[2024-02-08] MEDS: SODIUM CHLORIDE 0.65% NA SOLN 45 ML (OCEAN) SCH (13:57)
[2024-02-09 05:12] LABS: BUN Creatinine Ratio 30.4 (10-20); Calcium 9.2 mg/dl (8.6-10.3); Creatinine Clr Calc Pharmacy 109.3 ml/min; Est GFR (African American) 111.5 ml/min; Est GFR (Non-African American) 96.2 ml/min
[2024-02-09 05:21] LABS: Basophils # (auto) 0.04 K/uL (0.00-0.20); Basophils % (auto) 0.4 %; Eosinophils # (auto) 0.75 K/uL (0.00-0.50); Eosinophils % (auto) 8.1 %; Hematocrit (blood only) 47.5 % (42.0-52.0); Immature Granulocytes # (auto) 0.06 K/uL (0.01-0.20); Immature Granulocytes % (auto) 0.6 %; Lymphocytes % (auto) 12.9 %; Mean Corpuscular Hemoglobin 30.5 pg (25.0-34.0); Mean Corpuscular Hgb Conc 33.7 g/dL (32.0-36.0); Mean Corpuscular Volume 90.6 fL (80.0-100.0); Mean Platelet Volume 8.8 fL (9.4-12.4); Monocytes # (auto) 0.77 K/uL (0.11-0.59); Monocytes % (auto) 8.3 %; Neutrophils # (auto) 6.49 K/uL (1.40-6.50); Neutrophils % (auto) 69.7 %; Platelet Count 243 K/uL (130-400); RDW Coefficient of Variation 12.9 % (11.5-14.5); RDW Standard Deviation 42.4 fL (36.4-46.3); Red Blood Count 5.24 M/uL (4.70-6.10); White Blood Count 9.31 K/ul (4.8-10.8)
--- NOTE | 2024-02-09 10:49 | Hospitalist Progress Note ---
Date of Service February 09, 2024 Assessment & Plan (1) Pneumothorax: (2) Hypoxia: (3) Necrotizing pneumonia: (4) Ex-smoker: (5) SOB (shortness of breath): (6) Asthma: (7) CAD (coronary artery disease): Plan Pt is a 68 yo M w/ a PMHx of CAD without stent placement or anginal symptoms, asthma on Singulair and albuterol as needed, aortic valve sclerosis, anxiety, and BPH who presents on 02/01 with approximately 2 weeks of shortness of breath, cough, and difficulty breathing found to have necrotizing pneumonia which was then complicated with pneumothorax, here for further management. Will continue to wean O2 as tolerated. Continue augmentin for 4 weeks total AB coverage. Plan for repeat CT in 6-8 weeks. #Necrotizing pneumonia - 2 weeks of sx, had some transient improvement with steroids followed by worsening symptoms days later - CTA on admission; no PE, +RML necrotizing PNA - initially on unasyn/Vancomycin/doxy ordered initially ordered but changed, now on amp + doxy, initially on vanc as well but dropped as MRSA nare neg - Patient will need repeat CT in 6 to 8 weeks and if not improving/resolving will need followup bronchoscopy to r/o malignancy - Sputum culture; wnl, blood culture; neg 48 hrs, MRSA nare; neg - continue to wean O2 as tolerated - continue IV AB coverage with amp + doxy while chest tube in place, was removed 02/05 so transitioned to oral augmentin 02/05 #Pneumothorax, resolved - patient reported pleuritic chest pain on r. side that radiated to his back and was needing 35 L, 80% O2 to maintain his O2 sats at 90% with more relief when sitting up and leaning forward - Repeat CXR 02/03/24 revealed interval change in patient's lungs with r. pneumothorax noted on exam --> chest tube placed by board finisher, patient now stable - Repeat CXR 02/04/24 did not reveal any change in size of right-sided pneumothorax - Patient ex-smoker, Dx w/ asthma and states that father had a pneumothorax during case of pneumonia years ago - Patient has no other known risk factors including: current smoking, COPD, tuberculosis infxn, sarcoidosis, malignancy, pulmonary fibrosis, not of unusual thin and tall built - presentation and symptoms consistent w/ secondary pneumothorax, - pulm consulted; chest tube placed 02/02, removed 02/05; appreciate any further recs #Diarrhea, resolved - 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 Patient reports he is intermittently compliant with these, encouraged to continue taking this for prevention Troponin is normal upon admission and normal the following morning during chest pain No acute ischemic EKG, NSR, no acute ischemic changes upon admission; 1st repeat EKG following morning also NSR, no ischemic changes; 2nd repeat EKG with noticeable artifacts due to patient's profuse sweating, inability to secure leads on chest well but no acute ischemic changes; troponins also have all been below threshold of concern Patient with reported BP of 182/93, no headache/vision change and coughing during cycling. Blood pressure at rest 140s, additional antihypertensive treatment not indicated at time of admitting assessment - echo 02/05; 60-65% without wall abnormalities, BNP 33 #Dyslipidemia continue home Atorvastatin DVT prophylaxis: Lovenox Admission and Anticipated Discharge Date Admission Date: February 02, 2024 Supervising Physician Co-Signing Physician Notes Attending Physician Supervision Note: I independently interviewed and examined the patient and verified the boyd history and physical, reviewed labs and image studies and agree with findings and care plan noted above. Necrotizing pneumonia - RML cavitary lesion. Neg sputum and blood cx. Received IV ampicillin and doxycycline. -legionella test pending. -transitioned to augmentin (02/05) for total of 4 wks -repeat CT in 6-8wks - per Pulm Spontaneous Right Pneumothorax - later in the hospital stay. s/p Pigtail catheter placement - removed 02/06/24. complete resolution on CXR. Acute respiratory failure - on admission and later with persistent O2 need -Multifactorial - pneumonia and related atelectasis/VQ shunt. Pleural effusion is resolved. -Echo with mild LVH. Normal BNP. s/p lasix dose on 02/03 with no improvement. -Hypoxia improving. History of tobacco abuse - -No known diagnosis of COPD. to have outpatient PFT. -d/ekta steroids. Nasal congestion - flonase, astelin, saline nasal spray added. Lovenox. Subjective Pt is a 68 yo M w/ a PMHx of CAD without stent placement or anginal symptoms, asthma on Singulair and albuterol as needed, aortic valve sclerosis, anxiety, and BPH who presents on 02/01 with approximately 2 weeks of shortness of breath, cough, and difficulty breathing found to have necrotizing pneumonia which was then complicated with pneumothorax, here for further management. Today, he states he is really starting to feel restless and feels like he is starting to get a little sick. He states his nose is more congested now and he had some chills and sinus pressure overnight and has a bit of a headache this morning. No questions or complaints otherwise, just hoping to go home sometime soon. No more episodes of diarrhea noted. Review of Systems Review of Systems: Per HPI. Physical Exam Physical Exam: General:Alert and oriented, no acute distress, HEENT: Normocephalic, moist oral mucosa, Cardio: Regular rate and rhythm, no murmur, Resp:Lungs clear to auscultation b/l without wheezes or rhonchi GI: Soft and nontender, Skin: Warm, pink, dry, Results & Data Results & Data Vital Signs (Past 12 Hours) Vital Signs Temp Pulse Resp BP Pulse Ox O2 Del Method O2 Flow Rate 02/09/24 08:10 36.8 C 72 20 131/70 96 High Flow Nasal Cannula 4 02/09/24 07:56 Nasal Cannula 3 02/09/24 02:44 36.6 C 63 18 136/73 90 High Flow Nasal Cannula 4 02/08/24 22:55 36.6 C 62 18 138/77 95 High Flow Nasal Cannula 3 Resident Activity Tracking Resident Involvement: Resident Care Provided Care Provided: Adult Hospital Medicine (6) Asthma Asthma complication type: with acute exacerbation Asthma persistence: unspecified Asthma severity: mild Qualified Code(s): J45.901 - Unspecified asthma with (acute) exacerbation (7) CAD (coronary artery disease) Associated angina: without angina Coronary Disease-Associated Artery/Lesion type: unspecified vessel or lesion type [place] vs. transplanted heart: unspecified whether [place] or transplanted heart Qualified Code(s): I25.10 - Atherosclerotic heart disease of [place] coronary artery without angina pectoris
[2024-02-09] MEDS: OXYMETAZOLINE 0.05% 30 ML BTL STA (16:35)
[2024-02-09 17:22] LABS: Legionella pneumoph IgM, IFA <1:256 TITER
--- NOTE | 2024-02-10 07:05 | Hospitalist Progress Note ---
Date of Service February 10, 2024 Assessment & Plan (1) Pneumothorax: (2) Hypoxia: (3) Necrotizing pneumonia: (4) Ex-smoker: (5) SOB (shortness of breath): (6) Asthma: (7) CAD (coronary artery disease): Plan Pt is a 68 yo M w/ a PMHx of CAD without stent placement or anginal symptoms, asthma on Singulair and albuterol as needed, aortic valve sclerosis, anxiety, and BPH who presents on 02/01 with approximately 2 weeks of shortness of breath, cough, and difficulty breathing found to have necrotizing pneumonia which was then complicated with pneumothorax, here for further management. Will continue to wean O2 as tolerated. Continue augmentin for 4 weeks total AB coverage. Plan for repeat CT in 6-8 weeks. #Necrotizing pneumonia - 2 weeks of sx, had some transient improvement with steroids followed by worsening symptoms days later - CTA on admission; no PE, +RML necrotizing PNA - initially on unasyn/Vancomycin/doxy ordered initially ordered but changed, now on amp + doxy, initially on vanc as well but dropped as MRSA nare neg - Patient will need repeat CT in 6 to 8 weeks and if not improving/resolving will need followup bronchoscopy to r/o malignancy - Sputum culture; wnl, blood culture; neg 48 hrs, MRSA nare; neg - continue IV AB coverage with amp + doxy while chest tube in place, was removed 02/05 so transitioned to oral augmentin 2 - continue to wean O2 as tolerated, if able to get a little more improvement, can do 2 step #Pneumothorax, resolved - patient reported pleuritic chest pain on r. side that radiated to his back and was needing 35 L, 80% O2 to maintain his O2 sats at 90% with more relief when sitting up and leaning forward - Repeat CXR 02/03/24 revealed interval change in patient's lungs with r. pneumothorax noted on exam --> chest tube placed by manager card, patient now stable - Repeat CXR 02/04/24 did not reveal any change in size of right-sided pneumothorax - Patient ex-smoker, Dx w/ asthma and states that father had a pneumothorax during case of pneumonia years ago - Patient has no other known risk factors including: current smoking, COPD, tuberculosis infxn, sarcoidosis, malignancy, pulmonary fibrosis, not of unusual thin and tall built - presentation and symptoms consistent w/ secondary pneumothorax, - pulm consulted; chest tube placed 02/02, removed 02/05; appreciate any further recs #Diarrhea, resolved - 1 episode noted yesterday nurse 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 Patient reports he is intermittently compliant with these, encouraged to continue taking this for prevention Troponin is normal upon admission and normal the following morning during chest pain No acute ischemic EKG, NSR, no acute ischemic changes upon admission; 1st repeat EKG following morning also NSR, no ischemic changes; 2nd repeat EKG with noticeable artifacts due to patient's profuse sweating, inability to secure leads on chest well but no acute ischemic changes; troponins also have all been below threshold of concern Patient with reported BP of 182/93, no headache/vision change and coughing during cycling. Blood pressure at rest 140s, additional antihypertensive treatment not indicated at time of admitting assessment - echo 02/05; 60-65% without wall abnormalities, BNP 33 #Dyslipidemia continue home Atorvastatin DVT prophylaxis: Lovenox Admission and Anticipated Discharge Date Admission Date: February 02, 2024 Supervising Physician Co-Signing Physician Notes Attending Physician Supervision Note: I independently interviewed and examined the patient and verified the boyd history and physical, reviewed labs and image studies and agree with findings and care plan noted above. Necrotizing pneumonia - RML cavitary lesion. Neg sputum and blood cx. Received IV ampicillin and doxycycline. -legionella test pending. -transitioned to augmentin (02/05) for total of 4 wks -repeat CT in 6-8wks - per Pulm Spontaneous Right Pneumothorax - later in the hospital stay. s/p Pigtail catheter placement - removed 02/06/24. complete resolution on CXR. Acute respiratory failure - on admission and later with persistent O2 need -Hypoxia improving - will arrange 2 step in am. History of tobacco abuse - -No known diagnosis of COPD. to have outpatient PFT. -d/ekta steroids. Nasal congestion - flonase, astelin, saline nasal spray added. Lovenox. Subjective Pt is a 68 yo M w/ a PMHx of CAD without stent placement or anginal symptoms, asthma on Singulair and albuterol as needed, aortic valve sclerosis, anxiety, and BPH who presents on 02/01 with approximately 2 weeks of shortness of breath, cough, and difficulty breathing found to have necrotizing pneumonia which was then complicated with pneumothorax, here for further management. Today, pt states he is feeling okay. No questions or complaints today. Again, just hoping to go home soon. Review of Systems Review of Systems: Per HPI. Physical Exam Physical Exam: General:Alert and oriented, no acute distress, HEENT: Normocephalic, moist oral mucosa, Cardio: Regular rate and rhythm, no murmur, Resp:Lungs clear to auscultation b/l without wheezes or rhonchi, no resp distress or increased work of breathing GI: Soft and nontender, Skin: Warm, pink, dry, Results & Data Results & Data Vital Signs (Past 12 Hours) Vital Signs Temp Pulse Pulse Resp BP Pulse Ox O2 Del Method 02/10/24 03:38 36.9 C 64 18 134/76 95 High Flow Nasal Cannula 02/09/24 22:54 36.7 C 78 18 120/78 High Flow Nasal Cannula 02/09/24 22:00 70 02/09/24 20:00 Nasal Cannula 02/09/24 19:34 37.0 C 69 18 125/78 94 Nasal Cannula O2 Flow Rate 02/10/24 03:38 4 02/09/24 22:54 02/09/24 22:00 02/09/24 20:00 4 02/09/24 19:34 4 Resident Activity Tracking Resident Involvement: Resident Care Provided Care Provided: Adult Hospital Medicine (6) Asthma Asthma complication type: with acute exacerbation Asthma persistence: un specified Asthma severity: mild Qualified Code(s): J45.901 - Unspecified asthma with (acute) exacerbation (7) CAD (coronary artery disease) Associated angina: without angina Coronary Disease-Associated Artery/Lesion type: unspecified vessel or lesion type [place] vs. transplanted heart: unspecified whether [place] or transplanted heart Qualified Code(s): I25.10 - Atherosclerotic heart disease of [place] coronary artery without angina pectoris
[2024-02-10 08:01] LABS: Basophils # (auto) 0.03 K/uL (0.00-0.20); Basophils % (auto) 0.4 %; Eosinophils # (auto) 0.33 K/uL (0.00-0.50); Eosinophils % (auto) 4.4 %; Hematocrit (blood only) 43.8 % (42.0-52.0); Hemoglobin 15.3 g/dl (14.0-18.0); Immature Granulocytes # (auto) 0.03 K/uL (0.01-0.20); Immature Granulocytes % (auto) 0.4 %; Lymphocytes # (auto) 1.28 K/uL (1.20-3.40); Lymphocytes % (auto) 17.1 %; Mean Corpuscular Hemoglobin 30.9 pg (25.0-34.0); Mean Corpuscular Hgb Conc 34.9 g/dL (32.0-36.0); Mean Corpuscular Volume 88.5 fL (80.0-100.0); Mean Platelet Volume 8.6 fL (9.4-12.4); Monocytes # (auto) 0.87 K/uL (0.11-0.59); Monocytes % (auto) 11.6 %; Neutrophils # (auto) 4.96 K/uL (1.40-6.50); Neutrophils % (auto) 66.1 %; Platelet Count 238 K/uL (130-400); RDW Coefficient of Variation 12.9 % (11.5-14.5); RDW Standard Deviation 41.8 fL (36.4-46.3); Red Blood Count 4.95 M/uL (4.70-6.10)
[2024-02-10 08:15] LABS: BUN Creatinine Ratio 25.4 (10-20); Calcium 9.1 mg/dl (8.6-10.3); Creatinine Clr Calc Pharmacy 106.3 ml/min; Est GFR (African American) 110.2 ml/min; Est GFR (Non-African American) 95.1 ml/min; Potassium 4.2 mmol/L (3.5-5.1)
--- NOTE | 2024-02-11 06:52 | Hospitalist Progress Note ---
Date of Service February 11, 2024 Assessment & Plan (1) Pneumothorax: (2) Hypoxia: (3) Necrotizing pneumonia: (4) Ex-smoker: (5) SOB (shortness of breath): (6) Asthma: (7) CAD (coronary artery disease): Plan Pt is a 68 yo M w/ a PMHx of CAD without stent placement or anginal symptoms, asthma on Singulair and albuterol as needed, aortic valve sclerosis, anxiety, and BPH who presents on 02/01 with approximately 2 weeks of shortness of breath, cough, and difficulty breathing found to have necrotizing pneumonia which was then complicated with pneumothorax, here for further management. Today, continue to wean O2 as tolerated. Continue augmentin for 4 weeks total AB coverage. Will do 2 step today and possible D/C tonight but likely tomorrow. Plan for repeat CT in 6-8 weeks. #Necrotizing pneumonia - 2 weeks of sx, had some transient improvement with steroids followed by worsening symptoms days later - CTA on admission; no PE, +RML necrotizing PNA - initially on unasyn/Vancomycin/doxy ordered initially ordered but changed, now on amp + doxy, initially on vanc as well but dropped as MRSA nare neg - Patient will need repeat CT in 6 to 8 weeks and if not improving/resolving will need followup bronchoscopy to r/o malignancy - Sputum culture; wnl, blood culture; neg 48 hrs, MRSA nare; neg - continue IV AB coverage with amp + doxy while chest tube in place, was removed 02/05 so transitioned to oral augmentin 2 - continue to wean O2 as tolerated #Pneumothorax, resolved - patient reported pleuritic chest pain on r. side that radiated to his back and was needing 35 L, 80% O2 to maintain his O2 sats at 90% with more relief when sitting up and leaning forward - Repeat CXR 02/03/24 revealed interval change in patient's lungs with r. pneumothorax noted on exam --> chest tube placed by turfgrass management professor, patient now s table - Repeat CXR 02/04/24 did not reveal any change in size of right-sided pneumothorax - Patient ex-smoker, Dx w/ asthma and states that father had a pneumothorax during case of pneumonia years ago - Patient has no other known risk factors including: current smoking, COPD, tuberculosis infxn, sarcoidosis, malignancy, pulmonary fibrosis, not of unusual thin and tall built - presentation and symptoms consistent w/ secondary pneumothorax, - pulm consulted; chest tube placed 02/02, removed 02/05; appreciate any further recs #Diarrhea, resolved - 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 Patient reports he is intermittently compliant with these, encouraged to continue taking this for prevention Troponin is normal upon admission and normal the following morning during chest pain No acute ischemic EKG, NSR, no acute ischemic changes upon admission; 1st repeat EKG following morning also NSR, no ischemic changes; 2nd repeat EKG with noticeable artifacts due to patient's profuse sweating, inability to secure leads on chest well but no acute ischemic changes; troponins also have all been below threshold of concern Patient with reported BP of 182/93, no headache/vision change and coughing during cycling. Blood pressure at rest 140s, additional antihypertensive treatment not indicated at time of admitting assessment - echo 02/05; 60-65% without wall abnormalities, BNP 33 #Dyslipidemia continue home Atorvastatin DVT prophylaxis: Lovenox Admission and Anticipated Discharge Date Admission Date: February 02, 2024 Subjective Pt is a 68 yo M w/ a PMHx of CAD without stent placement or anginal symptoms, asthma on Singulair and albuterol as needed, aortic valve sclerosis, anxiety, and BPH who presents on 02/01 with approximately 2 weeks of shortness of breath, cough, and difficulty breathing found to have necrotizing pneumonia which was then complicated with pneumothorax, here for further management. Today, pt states he feels okay. He is hoping to get to go home sometime soon since he states him and his are in the process of moving and his is doing the house showing today. He states the chest discomfort he had of the R upper chest and into R should he was having before with deep breaths is pretty much totally resolved and his congestion has improved a lot as well. Tolerating meals without issues and overall feeling good, just restless. Review of Systems Review of Systems: Per HPI. Physical Exam Physical Exam: General:Alert and oriented, no acute distress, HEENT: Normocephalic, moist oral mucosa, Cardio: Regular rate and rhythm, no murmur, Resp:Lungs clear to auscultation b/l without wheezes or rhonchi, no resp distress or increased work of breathing GI: Soft and nontender, Skin: Warm, pink, dry, Results & Data Results & Data Vital Signs (Past 12 Hours) Vital Signs Temp Pulse Pulse Resp BP Pulse Ox O2 Del Method 02/11/24 03:28 36.8 C 57 L 18 146/78 H 96 Nasal Cannula 02/10/24 23:09 36.6 C 78 18 126/78 94 Nasal Cannula 02/10/24 22:00 67 02/10/24 20:00 Nasal Cannula 02/10/24 19:43 36.6 C 69 18 128/71 91 Nasal Cannula O2 Flow Rate 02/11/24 03:28 3 02/10/24 23:09 4 02/10/24 22:00 02/10/24 20:00 3 02/10/24 19:43 3 Resident Activity Tracking Resident Involvement: Resident Care Provided Care Provided: Adult Hospital Medicine (6) Asthma Asthma complication type: with acute exacerbation Asthma persistence: unspecified Asthma severity: mild Qualified Code(s): J45.901 - Unspecified asthma with (acute) exacerbation (7) CAD (coronary artery disease) Associated angina: without angina Coronary Disease-Associated Artery/Lesion type: unspecified vessel or lesion type [place] vs. transplanted heart: unspecified whether [place] or transplanted heart Qualified Code(s): I25.10 - Atherosclerotic heart disease of [place] coronary artery without angina pectoris
[2024-02-11 07:30] LABS: Basophils # (auto) 0.04 K/uL (0.00-0.20); Basophils % (auto) 0.6 %; Eosinophils # (auto) 0.44 K/uL (0.00-0.50); Eosinophils % (auto) 6.3 %; Hematocrit (blood only) 43.7 % (42.0-52.0); Hemoglobin 15.4 g/dl (14.0-18.0); Immature Granulocytes # (auto) 0.03 K/uL (0.01-0.20); Immature Granulocytes % (auto) 0.4 %; Lymphocytes # (auto) 1.23 K/uL (1.20-3.40); Lymphocytes % (auto) 17.6 %; Mean Corpuscular Hemoglobin 31.4 pg (25.0-34.0); Mean Corpuscular Hgb Conc 35.2 g/dL (32.0-36.0); Mean Corpuscular Volume 89.2 fL (80.0-100.0); Mean Platelet Volume 8.4 fL (9.4-12.4); Monocytes # (auto) 0.79 K/uL (0.11-0.59); Monocytes % (auto) 11.3 %; Neutrophils # (auto) 4.46 K/uL (1.40-6.50); Neutrophils % (auto) 63.8 %; Platelet Count 246 K/uL (130-400); RDW Coefficient of Variation 12.7 % (11.5-14.5); White Blood Count 6.99 K/ul (4.8-10.8)
[2024-02-11 07:46] LABS: BUN Creatinine Ratio 26.5 (10-20); Calcium 9.2 mg/dl (8.6-10.3); Creatinine Clr Calc Pharmacy 110.9 ml/min; Est GFR (African American) 112.1 ml/min; Est GFR (Non-African American) 96.8 ml/min
--- NOTE | 2024-02-11 13:31 | Discharge Summary ---
Date of Service February 11, 2024 Admission HPI Per Admitting Provider Tahir is a 68-year-old male with a history of CAD with distal residual disease with no recent anginal symptoms on aspirin and no history of stents, asthma on Singulair and albuterol as needed, aortic valve sclerosis, anxiety, BPH who presents with approximately 2 weeks of shortness of breath, cough, and difficulty breathing. Shortness of breath, cough, difficulty breathing which began at least 7 days ago, thinks it was probably a week before that. [place] the steroids helped a little bit and was working around the house and then progressively worsened over the next few days. Has exercise induced asthma and moving boxes and getting ready to move seems to exacerbate this. SpO2 meter at home was 79-80s at home, does not have an oxygen requirement normally cough is minimally productive for clear whitish sputum +night sweats last night, soaked the bed. No fevers that he knows of. No rigors Has had some rib discomfort with cough, denies exertional angina/pressure/neck pain otherwise No nausea/vomiting No diarrhea/constipation no abdominal pain Using albuterol, has not been using Breo --> was switched to Singulair and has been using this as directed. Switched a few months ago due to cost. Many years ago was trialed on some alternative inhalers including Dulera and Advair but they were expensive at the time, has not looked into these recently. Does note that prior to his illness 2 weeks ago he was doing well and while he has had nighttime wheezing, awakenings, and nighttime shortness of breath prior to this snored a little bit but was not having significant wheezing/nighttime awakening with the Singulair. Hx of distal coronary disease, denies chest pain/pressure last few months or exertional angina. Supposed to asa 81mg daily, takes this sporadically/intermittently. Takes atorvastatin about 1/3 of the time he should 'if I think about it I'll take one' Medical History: Reviewed Medications: Reviewed Surgical History: Reviewed Family history: Reviewed Allergies: Reviewed Social History: No tobacco product use. Rare social etoh use. No rec drug use Code Status: Full Code Admission Exam Per Admitting Provider General: A&Ox3. NAD. Cooperative. HEENT: Atraumatic, normocephalic. Pulm: CTAB A&P. -wheezes, -rales, -rhonchi with normal respiration. on forced expiration diffuse high pitched expiratory wheezing worst in RML. Cardiac: RRR, -mrg. Radial pulses intact and symmetrical. Abdominal: Nontender, nondistended, soft. BS present. Ext: warm, dry. Principal Diagnosis Necrotizing pneumonia, spontaneous pneumothorax Discharge Exam General:Alert and oriented, no acute distress, HEENT: Normocephalic, moist oral mucosa, Cardio: Regular rate and rhythm, no murmur, Resp:Lungs clear to auscultation b/l without wheezes or rhonchi, no resp distress or increased work of breathing while on nasal canula O2 GI: Soft and nontender, Skin: Warm, pink, dry Discharge Data Allergies Allergy/AdvReac Type Severity Reaction Status Date / Time No Known Drug Allergies Allergy Verified 12/11/23 08:53 Consultations 02/02/24 09:25 ED Decision to Admit Stat 02/03/24 13:51 Consult Pulmonology Stat Ordered Studies 02/02/24 06:58 CT angio chest PE protocol Stat 02/03/24 14:01 US point of care ultrasound Urgent 02/07/24 13:30 US effusion-chest/mediastinum Routine Hospital Course (1) Pneumothorax: (2) Hypoxia: (3) Necrotizing pneumonia: (4) Ex-smoker: (5) SOB (shortness of breath): (6) Asthma: (7) CAD (coronary artery disease): Plan Pt is a 68 yo M w/ a PMHx of CAD without stent placement or anginal symptoms, asthma on Singulair and albuterol as needed, aortic valve sclerosis, anxiety, and BPH who presents on 02/01 with approximately 2 weeks of shortness of breath, cough, and difficulty breathing found to have necrotizing pneumonia which was then complicated with pneumothorax, here for further management. #Necrotizing pneumonia - 2 weeks of sx, had some transient improvement with steroids followed by worsening symptoms days later - Sputum culture; wnl, blood culture; neg, MRSA nare; neg - CTA on admission; no PE, +RML necrotizing PNA - Patient will need repeat CT in 6 weeks and if not improving/resolving will need followup bronchoscopy to r/o malignancy - on IV AB coverage with amp + doxy while chest tube was in place, was removed 02/05 so transitioned to oral augmentin 02/05; 4 weeks total ABs recommended so will end augmentin course on 03/02 - 2 step done; required 2L of O2, which was arranged on discharge #Pneumothorax, resolved - patient reported pleuritic chest pain on r. side that radiated to his back and was needing 35 L, 80% O2 to maintain his O2 sats at 90% with more relief when sitting up and leaning forward - Repeat CXR 02/03/24 revealed interval change in patient's lungs with r. pneumothorax noted on exam --> chest tube placed by manager [employer], which was removed on 02/05 with total resolution of pneumothorax - Patient ex-smoker, Dx w/ asthma and states that father had a pneumothorax during case of pneumonia years ago #Asthma, mild, chronic Patient treated for potential asthma exacerbation/bronchitis 1 week ago without improvement, suspect symptoms were due to pneumonia as above Continue Singulair, albuterol as needed, - pt was on IV methylprednisolone 40 mg daily here for 2 days, discontinued 02/04 as pt was not felt to be in acute exac #CAD (coronary artery disease) With history of CAD and mild residual disease, patient denies any chest pressure/anginal symptoms in the preceding few months or prior to admission Continue aspirin 81 mg daily and atorvastatin. Patient reports he is intermittently compliant with these, encouraged to continue taking this for pr evention No acute ischemic EKG, NSR, no acute ischemic changes upon admission - echo 02/05; 60-65% without wall abnormalities, BNP 33 Total Time Total Time Spent Total Time Spent (In Minutes): As per attending attestation. Discharge Plan Discharge Items Patient Disposition: Home - Self-Care Reason For Visit: BREATHING PROBLEMS Discharge Diagnosis: Necrotizing pneumonia, spontaneous pneumothorax Condition on Discharge: Fair Activity: Per Instructions section Non-emergency contact: Primary Care Provider Call non-emergency contact if: you have any medication questions Follow-up/Referrals: Lesley Obregon CRNP [Primary Care Provider] - 02/14/24 10:30 am Diet: Regular Addtl Attending Provider Instructions: Please follow up with your primary care physician within one week after being discharge from the hospital. You will continue to take the antibiotic (augmentin) 875-125 mg dosing twice daily for 3 more week to finish total of 4 weeks of antibiotics. You will need CT scan of your chest to check for resolution of your pneumonia in 6 weeks. Please let your primary care physician know to order this at your next appointment. You will continue to use oxygen which is arranged at the time of discharge. Pending Studies at Discharge: No Stand-Alone Forms: My [facility] Medications and DC Order Prescriptions: New azelastine 137 mcg (0.1 %) Aerosol,[place] 1 spray NA BID Qty: 1 0RF fluticasone propionate 50 mcg/actuation [place],Suspension 1 spray NA BID Qty: 1 0RF amoxicillin-pot clavulanate 875-125 mg Tablet 1 tab PO BIDM Qty: 42 0RF Continued atorvastatin 40 mg tablet 40 mg PO HS Qty: 90 3RF montelukast 10 mg tablet 10 mg PO DAILY Qty: 30 5RF albuterol sulfate 90 mcg/actuation HFA aerosol inhaler 2 puff inhalation QID PRN (Reason: shortness of breath or wheezing) Qty: 24 3RF benzonatate 100 mg capsule 100 mg PO TID PRN (Reason: cough) Qty: 20 0RF albuterol sulfate 2.5 mg /3 mL (0.083 %) solution for nebulization 2.5 mg inhalation Q6H PRN (Reason: shortness of breath or wheezing) Qty: 75 0RF Admission Data Admit Date/Time: 02/02/24 10:26 Attending Provider: Fany Molina Admit Provider: Pablo Pope Primary Care Provider: Lesley Obregon Other Providers: Pablo Pope; Papo Pitt; Mik Martin; Jhoan Ohara; Vianey Tyson; Thao Stover; Monica Reagan; Brandon Mustafa; Pedro Olmedo; Lakeisha Osborn; Kurtis Johnson Resident Activity Tracking Resident Involvement: Resident Care Provided Care Provided: Adult Hospital Medicine
--- NOTE | 2024-02-11 15:29 | Hospitalist Progress Note ---
Date of Service February 11, 2024 Assessment & Plan (1) Pneumothorax: (2) Hypoxia: (3) Necrotizing pneumonia: (4) Ex-smoker: (5) SOB (shortness of breath): (6) Asthma: (7) CAD (coronary artery disease): Plan Pt is a 68 yo M w/ a PMHx of CAD without stent placement or anginal symptoms, asthma on Singulair and albuterol as needed, aortic valve sclerosis, anxiety, and BPH who presents on 02/01 with approximately 2 weeks of shortness of breath, cough, and difficulty breathing found to have necrotizing pneumonia which was then complicated with pneumothorax, here for further management. #Necrotizing pneumonia - 2 weeks of sx, had some transient improvement with steroids followed by worsening symptoms days later - Sputum culture; wnl, blood culture; neg, MRSA nare; neg - CTA on admission; no PE, +RML necrotizing PNA - Patient will need repeat CT in 6 weeks and if not improving/resolving will need followup bronchoscopy to r/o malignancy - on IV AB coverage with amp + doxy while chest tube was in place, was removed 02/05 so transitioned to oral augmentin 02/05; 4 weeks total ABs recommended so will end augmentin course on 03/02 - 2 step done; required 2L of O2, Alexx's able to get tomorrow so plan for D/C tomorrow #Pneumothorax, resolved - patient reported pleuritic chest pain on r. side that radiated to his back and was needing 35 L, 80% O2 to maintain his O2 sats at 90% with more relief when sitting up and leaning forward - Repeat CXR 02/03/24 revealed interval change in patient's lungs with r. pneumothorax noted on exam --> chest tube placed by drill press set up operator radial, which was removed on 02/05 with total resolution of pneumothorax - Patient ex-smoker, Dx w/ asthma and states that father had a pneumothorax during case of pneumonia years ago #Asthma, mild, chronic Patient treated for potential asthma exacerbation/bronchitis 1 week ago without improvement, suspect symptoms were due to pneumonia as above Continue Singulair, albuterol as needed, - pt was on IV methylprednisolone 40 mg daily here for 2 days, discontinued 02/04 as pt was not felt to be in acute exac #CAD (coronary artery disease) With history of CAD and mild residual disease, patient denies any chest pressure/anginal symptoms in the preceding few months or prior to admission Continue aspirin 81 mg daily and atorvastatin. Patient reports he is intermittently compliant with these, encouraged to continue taking this for prevention No acute ischemic EKG, NSR, no acute ischemic changes upon admission - echo 02/05; 60-65% without wall abnormalities, BNP 33 Admission and Anticipated Discharge Date Admission Date: February 02, 2024 Supervising Physician Co-Signing Physician Notes Attending Physician Supervision Note: I independently interviewed and examined the patient and verified the boyd history and physical, reviewed labs and image studies and agree with findings and care plan noted above. Necrotizing pneumonia - RML cavitary lesion. Neg sputum and blood cx. Received IV ampicillin and doxycycline. -legionella test pending. -transitioned to augmentin (02/05) for total of 4 wks -repeat CT in 6-8wks - per Pulm Spontaneous Right Pneumothorax - later in the hospital stay. s/p Pigtail catheter placement - removed 02/06/24. complete resolution on CXR. Acute respiratory failure - on admission and later with persistent O2 need -Hypoxia improving - 2 step done 02/10 - needing 2L O2. History of tobacco abuse - -No known diagnosis of COPD. to have outpatient PFT. -d/ekta steroids. Nasal congestion - flonase, astelin, saline nasal spray added. Lovenox. d/c in am after home O2 arranged. Subjective Today, pt states he is feeling fine. No questions or complaints at this time. He states that his R upper chest pain and R shoulder pain has resolved and that his congestion has cleared. Review of Systems Review of Systems: Per HPI. Physical Exam Physical Exam: General:Alert and oriented, no acute distress, HEENT: Normocephalic, moist oral mucosa, Cardio: Regular rate and rhythm, no murmur, Resp:Lungs clear to auscultation b/l without wheezes or rhonchi, no resp distress or increased work of breathing while on nasal canula O2 GI: Soft and nontender, Skin: Warm, pink, dry Results & Data Results & Data Vital Signs (Past 12 Hours) Vital Signs Temp Pulse Pulse Pulse Pulse Resp Resp 02/11/24 11:41 36.6 C 60 18 02/11/24 11:12 63 87 65 20 02/11/24 08:01 02/11/24 07:43 36.9 C 74 20 02/11/24 03:28 36.8 C 57 L 18 Resp Resp BP Pulse Ox Pulse Ox Pulse Ox Pulse Ox 02/11/24 11:41 135/69 93 02/11/24 11:12 20 20 91 91 86 L 02/11/24 08:01 02/11/24 07:43 124/61 97 02/11/24 03:28 146/78 H 96 O2 Del Method O2 Flow Rate O2 Flow Rate O2 Flow Rate 02/11/24 11:41 Nasal Cannula 3 02/11/24 11:12 2 2 02/11/24 08:01 Nasal Cannula 3 02/11/24 07:43 Nasal Cannula 3 02/11/24 03:28 Nasal Cannula 3 Resident Activity Tracking Resident Involvement: Resident Care Provided Care Provided: Adult Hospital Medicine (6) Asthma Asthma complication type: with acute exacerbation Asthma persistence: unspecified Asthma severity: mild Qualified Code(s): J45.901 - Unspecified asthma with (acute) exacerbation (7) CAD (coronary artery disease) Associated angina: without angina Coronary Disease-Associated Artery/Lesion type: unspecified vessel or lesion type [place] vs. transplanted heart: unspecified whether [place] or transplanted heart Qualified Code(s): I25.10 - Atherosclerotic heart disease of [place] coronary artery without angina pectoris
[2024-02-12 04:23] VITALS: TEMP 98.1
--- NOTE | 2024-02-12 06:51 | Discharge Summary ---
Date of Service February 12, 2024 Admission HPI Per Admitting Provider Tahir is a 68-year-old male with a history of CAD with distal residual disease with no recent anginal symptoms on aspirin and no history of stents, asthma on Singulair and albuterol as needed, aortic valve sclerosis, anxiety, BPH who presents with approximately 2 weeks of shortness of breath, cough, and difficulty breathing. Shortness of breath, cough, difficulty breathing which began at least 7 days ago, thinks it was probably a week before that. [place] the steroids helped a little bit and was working around the house and then progressively worsened over the next few days. Has exercise induced asthma and moving boxes and getting ready to move seems to exacerbate this. SpO2 meter at home was 79-80s at home, does not have an oxygen requirement normally cough is minimally productive for clear whitish sputum +night sweats last night, soaked the bed. No fevers that he knows of. No rigors Has had some rib discomfort with cough, denies exertional angina/pressure/neck pain otherwise No nausea/vomiting No diarrhea/constipation no abdominal pain Using albuterol, has not been using Breo --> was switched to Singulair and has been using this as directed. Switched a few months ago due to cost. Many years ago was trialed on some alternative inhalers including Dulera and Advair but they were expensive at the time, has not looked into these recently. Does note that prior to his illness 2 weeks ago he was doing well and while he has had nighttime wheezing, awakenings, and nighttime shortness of breath prior to this snored a little bit but was not having significant wheezing/nighttime awakening with the Singulair. Hx of distal coronary disease, denies chest pain/pressure last few months or exertional angina. Supposed to asa 81mg daily, takes this sporadically/intermittently. Takes atorvastatin about 1/3 of the time he should 'if I think about it I'll take one' Admission Exam Per Admitting Provider General: A&Ox3. NAD. Cooperative. HEENT: Atraumatic, normocephalic. Pulm: CTAB A&P. -wheezes, -rales, -rhonchi with normal respiration. on forced expiration diffuse high pitched expiratory wheezing worst in RML. Cardiac: RRR, -mrg. Radial pulses intact and symmetrical. Abdominal: Nontender, nondistended, soft. BS present. Ext: warm, dry. Principal Diagnosis Necrotizing pneumonia complicated by pneumothorax Discharge Exam General:Alert and oriented, no acute distress, HEENT: Normocephalic, moist oral mucosa, Cardio: Regular rate and rhythm, no murmur, Resp:Lungs clear to auscultation b/l without wheezes or rhonchi, no resp dis tress or increased work of breathing while on nasal canula O2 GI: Soft and nontender, Skin: Warm, pink, dry Discharge Data Allergies Allergy/AdvReac Type Severity Reaction Status Date / Time No Known Drug Allergies Allergy Verified 12/11/23 08:53 Consultations 02/02/24 09:25 ED Decision to Admit Stat 02/03/24 13:51 Consult Pulmonology Stat Ordered Studies 02/02/24 06:58 CT angio chest PE protocol Stat 02/03/24 14:01 US point of care ultrasound Urgent 02/07/24 13:30 US effusion-chest/mediastinum Routine Hospital Course (1) Pneumothorax: (2) Hypoxia: (3) Necrotizing pneumonia: (4) Ex-smoker: (5) SOB (shortness of breath): (6) Asthma: (7) CAD (coronary artery disease): Plan Pt is a 68 yo M w/ a PMHx of CAD without stent placement or anginal symptoms, asthma on Singulair and albuterol as needed, aortic valve sclerosis, anxiety, a nd BPH who presents on 02/01 with approximately 2 weeks of shortness of breath, cough, and difficulty breathing found to have necrotizing pneumonia which was then complicated with pneumothorax, here for further management. #Necrotizing pneumonia - 2 weeks of sx, had some transient improvement with steroids followed by worsening symptoms days later - Sputum culture; wnl, blood culture; neg, MRSA nare; neg - CTA on admission; no PE, +RML necrotizing PNA - Patient will need repeat CT in 6 weeks and if not improving/resolving will need followup bronchoscopy to r/o malignancy - on IV AB coverage with amp + doxy while chest tube was in place, was removed 02/05 so transitioned to oral augmentin 02/05; 4 weeks total ABs recommended so will end augmentin course on 03/02 - 2 step done; required 2L of O2, Alexx's able to get tomorrow so plan for D/C tomorrow #Pneumothorax, resolved - patient reported pleuritic chest pain on r. side that radiated to his back and was needing 35 L, 80% O2 to maintain his O2 sats at 90% with more relief when sitting up and leaning forward - Repeat CXR 02/03/24 revealed interval change in patient's lungs with r. pneumothorax noted on exam --> chest tube placed by printed circuit board pcb draftsman, which was removed on 02/05 with total resolution of pneumothorax - Patient ex-smoker, Dx w/ asthma and states that father had a pneumothorax during case of pneumonia years ago #Asthma, mild, chronic Patient treated for potential asthma exacerbation/bronchitis 1 week ago without improvement, suspect symptoms were due to pneumonia as above Continue Singulair, albuterol as needed, - pt was on IV methylprednisolone 40 mg daily here for 2 days, discontinued 02/04 as pt was not felt to be in acute exac #CAD (coronary artery disease) With history of CAD and mild residual disease, patient denies any chest pressure/anginal symptoms in the preceding few months or prior to admission Continue aspirin 81 mg daily and atorvastatin. Patient reports he is intermittently compliant with these, encouraged to continue taking this for pr evention No acute ischemic EKG, NSR, no acute ischemic changes upon admission - echo 02/05; 60-65% without wall abnormalities, BNP 33 Total Time Total Time Spent Total Time Spent (In Minutes): <30 Discharge Plan Discharge Items Patient Disposition: Home - Self-Care Reason For Visit: BREATHING PROBLEMS Discharge Diagnosis: Necrotizing pneumonia, spontaneous pneumothorax Condition on Discharge: Fair Activity: Per Instructions section Non-emergency contact: Primary Care Provider Call non-emergency contact if: you have any medication questions Follow-up/Referrals: Lesley Obregon CRNP [Primary Care Provider] - 02/14/24 10:30 am Diet: Regular Addtl Attending Provider Instructions: You were admitted for pneumonia (an infection in your lungs). You also ended up having a spontaneous pneumothorax (collapsed lung) requiring a chest tube. You were treated with IV antibiotics and switched over time to oral antibiotics. You should plan to take this antibiotic the next 3 weeks or so for a full 4 weeks of antibiotic. Your symptoms have improved and your oxygen use as decreased, and we feel it is safe for you to return home with home oxygen. You should call your primary care provider when you leave the hospital to set up an appointment with them for a hospital follow-up within the next 1 week. You will also need to get another chest CT in 6 weeks to check for resolution of your pneumonia. Let your primary care provider know about this at your next appointment, as they will need to order it for you. Medications: Your medication list has been reviewed and reconciled upon discharge to ensure accuracy and continuity of care. An updated list of all your medications is included with your hospital discharge paperwork. Please review this list closely, and make note of any changes. We sent a new medication called Augmentin to your pharmacy. Take Augmentin 875-125 mg twice daily until out of pills (around 3 weeks for a total 4 week course). This is the antibiotic for your pneumonia. Do not stop taking this, even if you feel completely better. Take your medications as instructed; do not skip a dose of your medicines. Make sure all of your doctors know every medicine you are taking (including onfa-oey-[id number] medicines, vitamins, and supplements). Call your primary care provider before taking any new medicines (including over- the-counter medicines, vitamins, and supplements), because some of these may interact with your current medications, or may make your symptoms worse. Tell your primary care provider if you cannot afford your medications. Activity: You can do normal everyday activities as your body allows. Take rest breaks if you feel tired. Do not overexert. Stop activity if you have pain, shortness of breath or feel dizzy. Follow-up appointments: Make an appointment with your primary care physician within one week of discharge. A copy of this summary will be sent to them. Every time you see your primary care physician, or any other doctor, bring your medication list and a list of questions. CONTACT YOUR PRIMARY CARE PROVIDER if you experience any of the following: Shortness of breath or difficulty breathing Swelling of your feet, ankles, hands or abdomen Feeling tired with normal activity or experiencing dizziness or fainting Difficulty following your treatment plan, or difficulty taking medications CALL 911 OR GO TO THE EMERGENCY DEPARTMENT if you experience any of the following: Severe abdominal pain or nausea/vomiting Severe chest pain, or chest pain that radiates (moves) to your jaw or arm Sudden, severe shortness of breath or difficulty breathing Thank you for allowing us to participate in your care. Pending Studies at Discharge: No Stand-Alone Forms: My [facility] Medications and DC Order Prescriptions: New azelastine 137 mcg (0.1 %) Aerosol,[place] 1 spray NA BID Qty: 1 0RF fluticasone propionate 50 mcg/actuation [place],Suspension 1 spray NA BID Qty: 1 0RF amoxicillin-pot clavulanate 875-125 mg Tablet 1 tab PO BIDM Qty: 42 0RF Continued atorvastatin 40 mg tablet 40 mg PO HS Qty: 90 3RF montelukast 10 mg tablet 10 mg PO DAILY Qty: 30 5RF albuterol sulfate 90 mcg/actuation HFA aerosol inhaler 2 puff inhalation QID PRN (Reason: shortness of breath or wheezing) Qty: 24 3RF benzonatate 100 mg capsule 100 mg PO TID PRN (Reason: cough) Qty: 20 0RF albuterol sulfate 2.5 mg /3 mL (0.083 %) solution for nebulization 2.5 mg inhalation Q6H PRN (Reason: shortness of breath or wheezing) Qty: 75 0RF Discharge Orders: Discharge Order (Routine); Ordered 02/12/24 Ordered By: Ashanti Krishnamurthy Admission Data Admit Date/Time: 02/02/24 10:26 Attending Provider: Kurtis Johnson Admit Provider: Pablo Pope Primary Care Provider: Lesley Obregon Other Providers: Pablo Pope; Papo Pitt; Mik Martin; Jhoan Ohara; Vianey Tyson; Thao Stover; Monica Reagan; Brandon Mustafa; Pedro Olmedo; Lakeisha Osborn; Kurtis Johnson Supervising Physician Co-Signing Physician Notes I personally examined the patient and verified all boyd points of history and exam, discussed case, and agree with decision making with Dr Krishnamurthy feeling better O2 should arrive today wants to get home vitals noted nad heent nc at mmm breathing unlabored no accessory muscles good effort skin no rashes no pallor or icterus neuro no focal deficits Necrotizing pneumonia - RML cavitary lesion. Neg sputum and blood cx. -legionella test pending. -transitioned to augmentin (02/05) for total of 4 wks -repeat CT in 6-8wks - per Pulm -stale for dc Spontaneous Right Pneumothorax - later in the hospital stay. s/p Pigtail catheter placement - removed 02/06/24. complete resolution on CXR. stable for outpt f/u Acute respiratory failure - on admission and later with persistent O2 need -Hypoxia improving - 2 step done 02/10 - needing 2L O2. should be set up for home for today History of tobacco abuse Nasal congestion - flonase, astelin, saline nasal spray added. Lovenox for DVT proph Resident Activity Tracking Resident Involvement: Resident Care Provided Care Provided: Adult Hospital Medicine
[2024-02-12 07:20] LABS: Basophils # (auto) 0.04 K/uL (0.00-0.20); Basophils % (auto) 0.7 %; Eosinophils # (auto) 0.41 K/uL (0.00-0.50); Eosinophils % (auto) 6.8 %; Hematocrit (blood only) 43.2 % (42.0-52.0); Immature Granulocytes # (auto) 0.02 K/uL (0.01-0.20); Immature Granulocytes % (auto) 0.3 %; Lymphocytes # (auto) 1.29 K/uL (1.20-3.40); Lymphocytes % (auto) 21.3 %; Mean Corpuscular Hgb Conc 34.7 g/dL (32.0-36.0); Mean Corpuscular Volume 89.3 fL (80.0-100.0); Mean Platelet Volume 8.7 fL (9.4-12.4); Monocytes # (auto) 0.62 K/uL (0.11-0.59); Monocytes % (auto) 10.2 %; Neutrophils # (auto) 3.68 K/uL (1.40-6.50); Neutrophils % (auto) 60.7 %; Platelet Count 271 K/uL (130-400); RDW Coefficient of Variation 12.7 % (11.5-14.5); RDW Standard Deviation 41.7 fL (36.4-46.3); Red Blood Count 4.84 M/uL (4.70-6.10); White Blood Count 6.06 K/ul (4.8-10.8)
[2024-02-12 07:40] LABS: BUN Creatinine Ratio 25.7 (10-20); Calcium 9.3 mg/dl (8.6-10.3); Est GFR (African American) 108.3 ml/min; Est GFR (Non-African American) 93.5 ml/min; Potassium 4.2 mmol/L (3.5-5.1)
[2024-02-12 08:32] VITALS: BP 124/71; PULSE 62; RESP 18; O2SAT 92
--- NOTE | 2024-02-12 13:33 | Billing Data ---
Date of Service February 12, 2024 Coding Level of Care Code 89914 IN/OBS DISCH 30 MIN/LESS
== END 2024-02-12 17:57 | disposition home or self-care (01) | DRG 177 ==
LOC: ED 06:22 → 3N 10:26 → SUATTDRO 10:26 → 3N 11:44 → 2N 02-03 13:23 → 2S 02-03 15:41
DX: Z87.891 Personal history of nicotine dependence; J93.83 Other pneumothorax; J45.901 Unspecified asthma with (acute) exacerbation; J96.01 Acute respiratory failure with hypoxia; J85.0 Gangrene and necrosis of lung; I25.10 Atherosclerotic heart disease of native coronary artery without angina pectoris; N40.0 Benign prostatic hyperplasia without lower urinary tract symptoms; E78.5 Hyperlipidemia, unspecified